=== PATIENT | female | born 1980 | race Caucasian/White ===

== ENCOUNTER 2025-04-20 11:03 | Observation (INO) | payer OTHER, SELFPAY ==
[2025-04-20] VITALS (10 sets, daily range): BP systolic 96–114; BP diastolic 61–78; PULSE 64–79; RESP 16–17; TEMP 36.5–36.7; O2SAT 99–100; BMI 21.7
--- NOTE | ~2025-04-20 | CT_ITS ---
History: Seizure-like activity with head and facial trauma PROCEDURE: CT cervical spine and facial bones without intravenous contrast. COMPARISON: None TECHNIQUE: Multiple contiguous axial images of the cervical spine and facial bones were performed without the ad ministration of intravenous contrast. DLP: 184 mGy-cm FINDINGS: Alignment is maintained. Degenerative disease is noted, primarily at the level of C5/C6 and C6/C7. No acute fractures are present within the cervical spine or the facial bones. Left apical scarring. The right apex is unremarkable. No soft tissue abnormality is appreciated. The airway is patent. Impression: Degenerative disease, without acute fracture of the cervical spine. No acute facial bone fracture is appreciated. Reviewed, dictated and finalized at location A. Impression: Degenerative disease, without acute fracture of the cervical spine. No acute facial bone fracture is appreciated.
--- NOTE | ~2025-04-20 | CT_ITS ---
History: Seizure-like activity, head trauma PROCEDURE: CT head without contrast. COMPARISON: None TECHNIQUE: Axial imaging of the head performed from the skull base to the vertex without IV contrast. Sagittal a nd coronal reformations obtained. DLP: 605 mGy-cm FINDINGS: The ventricles are normal in size, shape and position. There is no mass, mass effect or midline shift. There is no abnormal extra-axial fluid collection or intracranial hemorrhage. Visualized paranasal sinuses are clear. The mastoid air cells are well aerated. No acute displaced fractures within the overlying cranium. Impression: No acute intracranial hemorrhage or suspicious mass effect. Reviewed, dictated and finalized at location A. Impression: No acute intracranial hemorrhage or suspicious mass effect.
--- NOTE | ~2025-04-20 | XR_ITS ---
CHEST RADIOGRAPH, PA AND LATERAL CLINICAL HISTORY: seizure-like activity . COMPARISON: None available TECHNIQUE: PA and lateral views of the chest. FINDINGS The cardiomediastinal silhouette is unremarkable. The lungs are clear. IMPRESSION: No focal infiltrate or effusion. Reviewed, dictated and finalized at location A.
--- NOTE | 2025-04-20 11:27 | ECG_ITS ---
Test Date: 2025-04-20 12:05:09 Measurements Intervals [place] Rate: 64 P: 25 VA: 190 QRS: 30 QRSD: 96 T: 60 QT: 444 QTc: 459 Interpretive Statements SINUS RHYTHM No previous ECG available for comparison Electronically Signed On 04-20-2025 12:53:15 CDT by Enrique Clinton M.D.
--- OUTSIDE RECORDS SUMMARY | 2025-04-20 11:53 | XMS_ITS | Data Portability ---
Author Organization [facility] [place], VM_Sh[facility] ([facility]) Address [address] [place] [address] Care Team Providers Care Student Accounts Coordinator Name Role Phone PILAR ENRIQUEZ Primary Care Provider Assessment No assessment recorded. Plan of Treatment Reminders Order Date Submit Date Provider Last Modified By Organization Details Last Modified Time Details Appointments None recorded . Lab rapid strep group A, throat 2022 023 Jase Prather ([facility]), [address] , [place], [address], 3 19:25:01 rapid influenz a virus A + B and SARS CoV + SARS CoV 2 Ag panel, IA, upper respirat ory specimen 2022 023 Jase white [place] ([facility]), [address] , [place], [address], 3 19:25:14 vitamin B12 + folate, serum or blood 2022 023 chacha [facility], [address], [place], [address], 3 11:32:14 vitamin B12 + folate, serum or blood 2022 023 CHRISTINE [facility], [address], [place], [address], 3 10:16:20 Referral None recorded . Procedures None recorded . Surgeries None recorded . Imaging None recorded . Medication Orders Tamiflu 75 mg capsule 2022 023 [facility][id number], [address] , [place], [place], [id number], 3 19:32:27 Zithroma x Z-Demar 250 mg tablet 2022 023 [facility] #[id number], [address], [place], [place], [id number], 3 19:32:29 Bromfed DM 2 mg-30 mg-10 mg/5 mL oral syrup 2022 023 [facility] #67548, [address], [place], [place], [id number], 3 19:32:28 albutero l sulfate HFA 90 mcg/actu ation aerosol inhaler 2022 023 [facility] #07687, [address] [facility] [address], [place], [place], [id number], 3 19:32:27 Mounjaro 2.5 mg/0.5 mL subcutan eous pen injector 2022 023 [email or web address] [facility], [address] [place] [address], [address], 3 08:55:44 sertrali ne 100 mg tablet 2022 023 [facility], [address] [place] [address], [address], 3 08:37:27 ondanset moises 4 mg disinteg rating tablet 2022 023 [facility], [address] [place] [address], [address], 3 09:29:45 lisinopr il 10 mg tablet 2022 023 [facility], [address] [place] [address], [address], 3 09:18:44 Mounjaro 2.5 mg/0.5 mL subcutan eous pen injector 2022 023 [facility], [address] [place] [address], [address], 3 09:18:46 lisinopr il 10 mg tablet 2022 023 [facility], [address] [place] [address], [address], 3 17:10:42 Mounjaro 5 mg/0.5 mL subcutan eous pen injector 2022 023 [email or web address] [facility] [place] [facility], [address] [place] [address], [address], 3 08:32:05 sertrali ne 100 mg tablet 2022 023 [email or web address] [facility] [place] [facility], [address] [place] [address], [address], 3 17:02:45 Patient TargetsNo targets recorded. Patient Instructions Encounter Date Encounter Id Patient Instructions Last Modified By Organization Details Last Modified Time 06/18/2023 [id number] learning about healthy weight [email or web address] Not available 06/18/2023 17:06:43 learning about dietary guidelines Not available 06/18/2023 17:06:43 Learning About Being Physically Active [email or web address] Not available 06/18/2023 17:06:43 learning about obesity [email or web address] Not available 06/18/2023 17:06:43 Thank you for visiting our [facility] office today. It was my pleasure to meet and care of you. If you have any further needs or questions please reach out to me via your patient portal, or by calling our office at [phone]. If you have a question or non urgent need you are welcome to send me a text on my work cell [phone]. Pilar ANDERSON Hypertension: As part of helping get your blood pressure under control we need to work together. You need to take your BP at home with a cuff ( you can by on [employer]) 5-6 times a week I want you to write down the date and time of day with the results on a paper I would like you to text me those results at least every 2 weeks. Include your name in the first text. [phone] If they are not improving at all then text me ever week. By doing this I will have a better idea if the dose you currently taking for your BP is working or if we need to increase or change your medication. Watch your dietary salt intake. The goal is to get your BP ,<140 on the top and < 80 on the bottom number. [email or web address] Not available 06/18/2023 17:11:32 07/15/2023 [id number] Thank you for visiting our [facility] office today. It was my pleasure to meet and care of you. If you have any further needs or questions please reach out to me via your patient portal, or by calling our office at [phone]. If you have a question or non urgent need you are welcome to send me a text on my work cell [phone]. Pilar ANDERSON As we discussed stop the mounjaro until you are at least back up to 135. at that time if you feel you need to restart, will start at 2.5 mg [id number] days [email or web address] Not available 07/23/2023 06:27:52 07/23/2023 [id number] learning about healthy weight Not available 07/23/2023 09:23:38 learning about dietary guidelines [email or web address] Not available 07/23/2023 09:23:37 Learning About Being Physically Active Not available 07/23/2023 09:23:37 learning about obesity Not available 07/23/2023 09:23:38 Following the My[employer] Food Guide: Care Instructions Not available 07/23/2023 09:23:37 eating healthy foods: care instructions Not available 07/23/2023 09:23:38 Thank you for visiting our [facility] office today. It was my pleasure to meet and care of you. If you have any further needs or questions please reach out to me via your patient portal, or by calling our office at [phone]. If you have a question or non urgent need you are welcome to send me a text on my work cell [phone]. Pilar ANDERSON Continue to work on eating a more balanced diet and focus on protien. Wait to restart the mounjaro until you are back up to 138#'s then restart the 2.5 mg dosage, and do every 10-14 days max [email or web address] Not available 07/23/2023 09:40:09 08/25/2023 [id number] learning about healthy weight [email or web address] Not available 08/25/2023 08:57:57 learning about dietary guidelines [email or web address] Not available 08/25/2023 08:57:56 Learning About Being Physically Active [email or web address] Not available 08/25/2023 08:57:56 learning about obesity [email or web address] Not available 08/25/2023 08:57:57 Following the MyPlate Food Guide: Care Instructions [email or web address] Not available 08/25/2023 08:57:57 eating healthy foods: care instructions [email or web address] Not available 08/25/2023 08:57:57 Thank you for visiting our [facility] office today. It was my pleasure to meet and care of you. If you have any further needs or questions please reach out to me via your patient portal, or by calling our office at [phone]. If you have a question or non urgent need you are welcome to send me a text on my work cell [phone]. Pilar ANDERSON Weight loss instructions Mounjaro Thank you for visiting our [facility] office today. It was my pleasure to meet and care of you. If you have any further needs or questions, please reach out to me via your patient portal, or by calling our office at [phone]. If you have a question or non-urgent, need you are welcome to send me a text on my work cell [phone]. Pilar ANDERSON Congratulations On making the choice to change your life and become healthy!!! You will be meeting with me in the office monthly for at least the first 3 months. Please reach out to me if you have questions or concerns along the way. Please remember gaining weight happens over time and so does losing it. This journey is a marathon not a sprint. Your goal should be 1-2 pounds per week. This is a journey and lifestyle change. It is a medicine that will help you reach your goals, but you still must do your part. A healthy diet, exercise, and calorie deficit will be part of the plan. You will plateau along the way, that is normal physiological events. This medicine contains a GLP1 and GIP As we discussed in the office it has not been FDA approved for weight loss but is being fast tracked for approval. Knowing that information you have agreed that you want to proceed using Mounjaro for weight loss. It contains the GLP1 medication that is found in other weight loss medications plus an additional hormone GIP that helps your insulin be more sensitive when you eat. In trial these together have been shown to have weight loss upwards of 20+% of body weight. The medication is injected into subcutaneous fat weekly. Abdomen, upper thigh, or upper arm. I have sent the prescription for Mounjaro the Pharmacy. Please text me when you get your call from them, and the medication is approved@ [phone]. The prescription will be a box of 4 pens. You need to keep them refrigerated except for the one you are using. Each monthly box comes with 4 prefilled syringes. You use one weekly and put the remaining syringes in your refrigerator until you need them. I would like you to text me when you take your 4th injection to make sure we have the correct next dose ordered for you. Let me know if the current dose is still causing the same satiety as when you started or are noticing your appetite returning. This medicine will help decrease your appetite and cravings. It does that by having higher levels of the hormones that tell your brain you are full. It also slows down your stomach emptying, and the activity of your GI tract. This sometimes can cause the most common side effects of nausea constipation, and diarrhea. You have been given Zofran as needed for the nausea. For the constipation make sure you are staying hydrated, 100 ounces of water daily is ideal, and you can use things like fiber Gummies, Miralax and stool softener as needed. If those are note helping, please reach out to me for further instructions. If you have severe nausea, vomiting and or diarrhea for more than 24 hours, you need to contact me or the office. It is important that you can eat and drink. Download the [employer] jayant on your phone. You are going to use this to track what your daily intake of calories are. You should set it to a goal of 1600. It is still important that you eat a minimum of 1200 calories a day to prevent your body from going into starvation mode and slowing your metabolism. It also helps your body get rid of fat vs muscle. If you are not eating a healthy number of calories, it has been shown to shut down your overall metabolism and cause you to stop losing weight. It also increases your risk of gallstones and pancreatitis. You may notice if you have eaten more than your normal calorie amount then go back to the calorie deficit, it tends to restart your metabolism and the weight loss starts again. Purchase a scale that syncs to your smart phone. I recommend [employer] scale you can purchase it on [employer] or directly from the web site. Studies have shown people who weigh daily lose 6 pounds more in a year than those who don't weigh daily. [employer] Link: https://Business Capital/d/93n hwbH The cost is around $20, and you can track your journey. If you have a smart watch, fit bit, wear it daily to help track your steps and exercise. You can sync it to my fitness pal. When you are active, and earning more calories via exercise, remember to add those to your daily goal. Take your picture and do measurements. Along the way you will have plateau's and it is always encouraging to see how far you have come even if the scale has stalled. control should be used while taking these medications. You should be off the medicine for 3 months if you intend on conceiving. I will be meeting with you monthly for at least the first 3 months, so we can work together to make the best plan for your weight loss journey. If you need to change your appointment, please reach out to me, or pick the physical as the appointment type on the jayant or website so you get the correct 30-minute slot booked. Each of the first 3 appointments will be for 30 minutes. I look forward to helping you become a healthier version of the amazing person you already are. I encourage you to download the [employer] JAYANT to your smart phone or tablet. There are great resources for various types of activity for cardio, toning and weights. It also has recipes, tips on how to train, and a ton of workouts. The jayant is free or $25 a year for the PRO version. You can also screen share to your TV. Behavior modification, calorie deficit, proper nutrition, and physical activity are going to be the 4 pillars of your success and help you maintain your goal. Remember time+ hard work = Success Pilar ANDERSON [facility] (non-urgent text are welcome.) Office [phone] As we discussed please wait at least 4 weeks post op to restart the mounjaro. Your body needs the extra nutrition to heal. [email or web address] Not available 08/25/2023 09:01:45 09/14/2023 [id number] flu, active [email or web address] Not available 19:32:17 Thank you for visiting our [facility] office today. It was my pleasure to meet and care of you. If you have any further needs or questions please reach out to me via your patient portal, or by calling our office at [phone]. If you have a question or non urgent need you are welcome to send me a text on my work cell [phone]. Pilar ANDERSON You have been diagnosed with the flu. Please rest; you need to take 5 days of the Tamiflu before you are not at risk of exposing others. Stay hydrated, take Tylenol or Ibuprofen as needed for the fever/ body aches. You have also been given an antibiotic to help reduce the risk of you developing post flu bronchitis or pneumonia. (This does not prevent them but decreases the chance of you developing them.) [email or web address] Not available 09/14/2023 19:25:37 Reason for Referral None Reported. Results Created Date Observation Date Name Description Value Unit Range Abnormal Flag Note LastModifiedBy Organization Detail LastModifiedTime 05/19/20 23 05/20/2023 CBC WITH DIFFE RENTI AL/PL ATELE T WBC 7.9 x10e3 /uL 3.4-10 .8 Not Available [facility] ([facility]) [address], [place], [address], 05/20/2023 06:18:51 05/19/20 23 05/20/2023 CBC WITH DIFFE RENTI AL/PL ATELE T RBC 4.38 x10e6 /uL 3.77-5 .28 Not Available [facility] ([facility]) [address] [place], [address], 05/20/2023 06:18:51 05/19/2005/20/2023 CBC WITH DIFFE RENTI AL/PL ATELE T hemoglobin 14.1 g/dL 11.1-1 5.9 Not Available [facility] ([facility]) [address] [place], [address], 05/20/2023 06:18:51 05/19/2005/20/2023 CBC WITH DIFFE RENTI AL/PL ATELE T hematocrit 41.3 % 34.0-4 6.6 Not Available [facility] ([facility]) [address] [place], [address], 05/20/2023 06:18:51 05/19/2005/20/2023 CBC WITH DIFFE RENTI AL/PL ATELE T MCV 94 fL 79-97 Not Available [facility] ([facility]) [address] [place], [address], 05/20/2023 06:18:51 05/19/2005/20/2023 CBC WITH DIFFE RENTI AL/PL ATELE T MCH 32.2 pg 26.6-3 3.0 Not Available [facility] ([facility]) [address] [place], [address], 05/20/2023 06:18:51 05/19/2005/20/2023 CBC WITH DIFFE RENTI AL/PL ATELE T MCHC 34.1 g/dL 31.5-3 5.7 Not Available [facility] ([facility]) [address] [place], [address], 05/20/2023 06:18:51 05/19/20 23 05/20/2023 CBC WITH DIFFE RENTI AL/PL ATELE T RDW 11.9 % 11.7-1 5.4 Not Available [facility] ([facility]) [address] [facility], [place], [address], 05/20/2023 06:18:51 05/19/20 23 05/20/2023 CBC WITH DIFFE RENTI AL/PL ATELE T platelets 299 x10e3 /uL 150-45 0 Not Available [facility] ([facility]) [address] [facility], [place], [address], 05/20/2023 06:18:51 05/19/20 23 05/20/2023 CBC WITH DIFFE RENTI AL/PL ATELE T neutrophils 70 % not estab. Not Available [facility] ([facility]) [address] [facility], [place], [address], 05/20/2023 06:18:51 05/19/20 23 05/20/2023 CBC WITH DIFFE RENTI AL/PL ATELE T lymphs 23 % not estab. Not Available [facility] ([facility]) [address] [facility], [place], [address], 05/20/2023 06:18:51 05/19/20 23 05/20/2023 CBC WITH DIFFE RENTI AL/PL ATELE T monocytes 6 % not estab. Not Available [facility] ([facility]) [address] [facility], [place], [address], 05/20/2023 06:18:51 05/19/20 23 05/20/2023 CBC WITH DIFFE RENTI AL/PL ATELE T eos 0 % not estab. Not Available [facility] ([facility]) [address] [facility], [place], [address], 05/20/2023 06:18:51 05/19/20 23 05/20/2023 CBC WITH DIFFE RENTI AL/PL ATELE T basos 1 % not estab. Not Available [facility] ([facility]) [address] [place], [address], 05/20/2023 06:18:51 05/19/20 23 05/20/2023 CBC WITH DIFFE RENTI AL/PL ATELE T neutrophils (absolute) 5.5 x10e3 /uL 1.4-7. 0 Not Available [facility] ([facility]) [address] [place], [address], 05/20/2023 06:18:51 05/19/2005/20/2023 CBC WITH DIFFE RENTI AL/PL ATELE T lymphs (absolute) 1.8 x10e3 /uL 0.7-3. 1 Not Available [facility] ([facility]) [address] [place], [address], 05/20/2023 06:18:51 05/19/20 23 05/20/2023 CBC WITH DIFFE RENTI AL/PL ATELE T monocytes(ab solute) 0.5 x10e3 /uL 0.1-0. 9 Not Available [facility] ([facility]) [address] [place], [address], 05/20/2023 06:18:51 05/19/2005/20/2023 CBC WITH DIFFE RENTI AL/PL ATELE T eos (absolute) 0.0 x10e3 /uL 0.0-0. 4 Not Available [facility] ([facility]) [address] [place], [address], 05/20/2023 06:18:51 05/19/2005/20/2023 CBC WITH DIFFE RENTI AL/PL ATELE T baso (absolute) 0.1 x10e3 /uL 0.0-0. 2 Not Available [facility] ([facility]) [address] [place], [address], 05/20/2023 06:18:51 05/19/20 23 05/20/2023 CBC WITH DIFFE RENTI AL/PL ATELE T immature granulocytes 0 % not estab. Not Available [facility] ([facility]) [address] [facility], [place], [address], 05/20/2023 06:18:51 05/19/20 23 05/20/2023 CBC WITH DIFFE RENTI AL/PL ATELE T immature grans (abs) 0.0 x10e3 /uL 0.0-0. 1 Not Available [facility] ([facility]) [address] [place], [address], 05/20/2023 06:18:51 08/25/20 23 08/26/2023 VITAM IN B12+F OLATE vitamin B12 210 pg/mL 232-12 45 below low normal Not Available [facility] ([facility]) [address] [facility], [place], [address], 09/03/2023 10:16:20 08/25/20 23 08/26/2023 VITAM IN B12+F OLATE folate (folic acid), serum 8.7 NG/mL >3.0 A serum folat e eboni ntrat ion of less than 3.1 ng/mL is consi dered to repre sent clini karlos defic iency . Not Available [facility] ([facility]) [address] [facility], [place], [address], 09/03/2023 10:16:20 08/25/20 23 08/27/2023 VITAM IN B12+F OLATE homocyst(E)i ne 12.5 umol/ L 0.0-14 .5 Not Available [facility] ([facility]) [address] [facility], [place], [address], 09/03/2023 10:16:20 08/25/20 23 09/03/2023 VITAM IN B12+F OLATE methylmaloni c acid, serum COMMEN T nmol/ L Quant ity was not suffi cient for rajinder sis. Not Available [facility] ([facility]) [address] [facility], [place], [address], 09/03/2023 10:16:20 08/25/20 23 09/03/[address] PROBL EM request problem COMMEN T Quant ity was not suffi cient for rajinder sis. TEST: 17402 7 Methy lmalo tracey Acid, Serum Panel : 42160 3 Not Available [facility] ([facility]) [address] [facility], [place], [address], 09/03/2023 10:16:22 09/14/20 23 09/14/2023 rapid influ allyson virus A + B and SARS CoV + SARS CoV 2 Ag panel , IA, upper respi rator y speci men Influenza A Presum ptive Negati ve Not Available [facility]) [address], [place], [address], 09/14/2023 19:22:10 09/14/20 23 09/14/2023 rapid influ allyson virus A + B and SARS CoV + SARS CoV 2 Ag panel , IA, upper respi rator y speci men Influenza B Presum ptive Negati ve Not Available [facility] ([facility]) [address] [place], [address], 09/14/2023 19:22:10 09/14/20 23 09/14/2023 rapid influ allyson virus A + B and SARS CoV + SARS CoV 2 Ag panel , IA, upper respi rator y speci men SARS-CoV-2 Antigen Presum ptive Negati ve Not Available [facility] ([facility]) [address] [place], [address], 09/14/2023 19:22:10 09/14/20 23 09/14/2023 rapid strep group A, throa t Strep negati ve Not Available [facility] ([facility]) [address], [place], [address], 09/14/2023 19:22:09 08/23/20 23 08/19/2023 MAMMO adrián, digit al, bilat eral No observ ation record ed. [email or web address] [facility] [address], [place], [address], 08/25/2023 08:49:37 08/25/20 24 08/24/2024 MAMMO adrián, digit al, bilat eral No observ ation record ed. [email or web address] [facility] [address], [place], [address], 09/07/2024 12:41:42 09/19/20 24 09/19/2024 imagi ng/di agnos tic resul t No observ ation record ed. [facility] [address], [place], [address], 09/27/2024 18:16:24 09/19/20 24 09/19/2024 imagi ng/di agnos tic resul t No observ ation record ed. [facility] [address], [place], [address], 09/27/2024 18:16:25 Result Notes None recorded. Problems Name Problem SNOMED Code Status Onset Date Resolution Date Notes Provider Name and Address Organization Details Recorded Time COVID-19 810065489 Active [address], [place], [address], [facility] [place] 3 12:20:11 Blade 644633359 Active [address], [place], [address], [facility] 3 12:51:37 Family history of malignant neoplasm of breast in first degree relative 644572588 Active 2022 ED Kam [address], [place], [address], [facility] 3 12:20:20 History of sleeve gastrecto my 466523562503 107 Active 2010 ED Kam [address] [facility] [address], [place], [address], [facility] 3 12:19:55 Weight loss 65885000 Active 2022 sleeve in 2010, glp1 in 2021 ED Kam [address] [facility] [address], [place], [address], [facility] 3 12:20:54 Hyperchol esterolem ia 58817570 Active 2022 by history , non medicated ED Kam [address] [facility] [address], [place], [address], [facility] 3 12:21:22 Finding of body mass index 988235434 Active 2022 ED Kam [address] [facility] [address], [place], [address], [facility] 3 12:27:55 Screening for malignant neoplasm of cervix Active 2022 ED Kam [address] [facility] [address], [place], [address], [facility] 3 12:27:56 Pre-surge ry evaluatio n Active 2022 ED Kam [address] [facility] [address], [place], [address], [facility] 3 12:28:00 Administr ation of influenza vaccine Active 2022 ED Kam [address] [facility] [address], [place], [address], [facility] 3 12:28:03 Serum vitamin B12 borderlin e low 127302742 Active 2022 ED Kam [address] [facility] [address], [place], [address], [facility] 3 12:51:02 Serum folate below reference range 813061881 Active 2022 ED Kam [address] [facility] [address], [place], [place], [address], [facility] 3 12:51:03 Macrocyto sis - no anemia 087315770 Active 2022 ED Kam [address] [facility] [address], [place], [place], [address] [place] [address] 7, [facility] 3 16:02:32 Acute depressio n 132008483 Active 2022 ED Kam [address] [facility] [address], [place], [place], [address] [place] [address] 7, [facility] 3 07:13:34 Anxiety 31077421 Active 2022 ED Kam [address] [facility] [address], [place], [place], [address] [place] [address] 7, [facility] 3 07:13:41 Hypertens nathen disorder 79631739 Active 2022 DE Kam [address] [facility] [address], [place], [place], [address] [place] [address] 7, [facility] 3 07:14:04 Nausea 590915797 Active 2022 ED Kam [address], [place], [address], [facility] 3 06:27:52 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 Procedures Surgical History Date Name Laterality Status Provider Name and Address Organization Details Recorded Time 12/19/19 Lab / Venipuncture completed Christy Weeks [facility] 12/21/2022 15:07:59 Tubal Ligation completed Ela [facility] 04/16/2022 17:33:01 Gastric bypass for obesity completed [facility] 04/16/2022 17:33:22 Hysterectomy (Partial) completed [facility] 04/16/2022 17:33:35 Imaging Results None recorded. Procedure Notes None recorded. Medical Equipment None Reported. Allergies Allergen ID Allergen Name Allergen Category Reaction Reaction Severity Criticality Documentation Date Start Date Code Code System Note Provider Name and Address Organization Details Recorded Time [id number] Substance with sulfonami de structure and antibacte rial mechanism of action (substanc e) medicatio n rash mild low 04/16/2022 [id number] SNOMED Ela [facility] 17:28:50 Medications Name Sig Start Date Stop Date Status Note LastModified by Organization Details LastModified Time salicylic acid 80%/fluorou racil 5% wart paste APPLY THIN LAYER TO THICKER WARTS EVERY NIGHT AT BEDTIME AND COVER WITH DUCT TAPE, WASH off IN THE MORNING 12/02 completed Not Available Not Available Not Available buspirone 5 mg tablet 12/02 completed Not Available Not Available Not Available Bromfed DM 2 mg-30 mg-10 mg/5 mL oral syrup Take 10 mL every 4-6 hours by oral route as needed. 2022 active Not Available Not Available Not Avai lable prednisone 10 mg tablet TAKE FOUR (4) TABLETS BY MOUTH IN THE MORNING WITH FOOD FOR 2 WEEKS, THEN 2 TABLETS IN THE MORNING WITH FOOD FOR 2 WEEKS, THEN 1 TABLET IN 06/18 completed Not Available Not Available Not Available doxycycline hyclate 100 mg capsule TAKE 1 CAPSULE BY MOUTH TWICE DAILY WITH FOOD AND WATER 12/02 completed Not Available Not Available Not Available clindamycin HCl 300 mg capsule TAKE ONE (1) CAPSULE(S ) BY MOUTH FOUR TIMES A DAY. 02/07 completed Not Available Not Available Not Available atorvastati n 10 mg tablet TAKE ONE (1) TABLET(S) BY MOUTH ONCE A DAY AT BEDTIME. 07/15 completed Not Available Not Available Not Available azithromyci n 250 mg tablet TAKE 2 TABLETS BY MOUTH ON DAY 1, THEN TAKE 1 TABLET BY MOUTH DAILY FOR 4 DAYS active Not Available Not Available No t Available benzonatate 200 mg capsule TAKE 1 CAPSULE BY MOUTH THREE TIMES DAILY FOR 10 DAYS NEEDED 12/02 completed Not Available Not Available Not Available naltrexone 50 mg tablet TAKE 1 TABLET BY MOUTH DAILY 12/02 completed Not Available Not Available Not Available ondansetron HCl 4 mg tablet TAKE ONE (1) TABLET(S) BY MOUTH EVERY FOUR TO SIX HOURS NEEDED FOR NAUSEA. 02/07 completed Not Available Not Available Not Available prednisone 20 mg tablet 12/02 completed Not Available Not Available Not Available sertraline 100 mg tablet TAKE ONE (1) TABLET(S) BY MOUTH ONCE A DAY. 2022 active Not Available Not Available Not Avai lable prednisone 5 mg tablet TAKE ONE (1) TABLET(S) BY MOUTH ONCE A DAY FOR 14 DAYS, AND THEN TAKE ONE-HALF (1/2) TABLET BY MOUTH ONCE A DAY FOR 14 DAYS. TAKE WITH FOOD 06/18 completed Not Available Not Available Not Available phentermine 37.5 mg tablet TAKE 1 TABLET BY MOUTH EVERY DAY IN THE MORNING 12/02 completed Not Available Not Available Not Available Tamiflu 75 mg capsule Take 1 capsule twice a day by oral route for 5 days. 2022 active Not Available Not Available Not Avai lable alprazolam 0.5 mg tablet TAKE ONE (1) TABLET(S) BY MOUTH TWICE A DAY NEEDED. active Not Available Not Available No t Available triamcinolo ne acetonide 0.025 % topical cream APPLY 1 TO 2 TIMES DAILY PREFERABL Y SOON AFTER BATHING 12/02 completed Not Available Not Available Not Available hydrocodone 7.5 mg-acetamin ophen 325 mg tablet TAKE ONE (1) TABLET(S) BY MOUTH EVERY FOUR TO SIX HOURS NEEDED FOR PAIN. 02/07 completed Not Available Not Available Not Available cyanocobala min (vit B-12) 1,000 mcg/mL injection solution Inject 1000 microgram s by subcutane ous route as directed. 2023 active Not Available Not Available Not Avai lable lisinopril 10 mg tablet TAKE ONE (1) TABLET(S) BY MOUTH ONCE A DAY. active Not Available Not Available No t Available docusate sodium 100 mg capsule TAKE ONE (1) CAPSULE(S ) BY MOUTH TWICE A DAY. 02/07 completed Not Available Not Available Not Available gabapentin 300 mg capsule TAKE ONE (1) CAPSULE(S ) BY MOUTH TWICE A DAY. 02/07 completed Not Available Not Available Not Available omeprazole 20 mg capsule,del ayed release TAKE ONE (1) TABLET(S) BY MOUTH ONCE A DAY. 06/18 completed Not Available Not Available Not Available folic acid 1 mg tablet TAKE ONE (1) TABLET(S) BY MOUTH ONCE A DAY WITH MEALS. active Not Available Not Available No t Available hydrocortis one 2.5 % topical cream APPLY TOPICALLY TO THE AFFECTED AREA TWICE DAILY. MAX 2 WEEKS PER MONTH. MIX WITH KETOCONAZ OLE CREAM 12/02 completed Not Available Not Available Not Available hydroxyzine HCl 25 mg tablet TAKE 1 TABLET BY MOUTH 1 TO 4 TIMES A DAY TOLERATED . MAY CAUSE EXCESSIVE DROWSINES S 12/02 completed Not Available Not Available Not Available codeine 10 mg-guaifene sin 100 mg/5 mL oral liquid TAKE 10 ML BY MOUTH EVERY NIGHT AT BEDTIME FOR 10 DAYS 12/02 completed Not Available Not Available Not Available ergocalcife rol (vitamin D2) 1,250 mcg (50,000 unit) capsule TAKE ONE (1) CAPSULE(S ) BY MOUTH EVERY WEEK. 06/18 completed Not Available Not Available Not Available albuterol sulfate HFA 90 mcg/actuati on aerosol inhaler Inhale 2 puffs every 4 hours by inhalatio n route as needed for 10 days. 2022 active Not Available Not Available Not Avai lable ketoconazol e 2 % topical cream APPLY TO RASH ON THE AXILLA TWICE DAILY FOR 1 WEEK 12/02 completed Not Available Not Available Not Available ondansetron 4 mg disintegrat ing tablet TAKE ONE (1) TABLET(S) BY MOUTH THREE TIMES A DAY FOR SEVEN DAYS. active Not Available Not Available No t Available sertraline 50 mg tablet TAKE 1/2 TAB DAILY FOR FIRST 7 DAYS THEN ONE (1) TABLET(S) BY MOUTH ONCE A DAY FOR 90 DAYS. 07/23 completed Not Available Not Available Not Available diazepam 5 mg tablet TAKE ONE (1) TABLET(S) BY MOUTH THREE TIMES A DAY NEEDED. 02/07 completed Not Available Not Available Not Available amoxicillin 875 mg-karlaava cole clavulanate 125 mg tablet TAKE 1 TABLET BY MOUTH EVERY 12 HOURS WITH MEALS FOR 7 DAYS 12/02 completed Not Available Not Available Not Available enoxaparin 40 mg/0.4 mL subcutaneou s syringe STARTING 24 HOURS AFTER OPERATION , INJECT ONE (1) SYRINGE SUBCUTANE OUSLY ONCE A DAY FOR 8 DAYS. 02/07 completed Not Available Not Available Not Available clobetasol 0.05 % shampoo APPLY A THIN LAYER BY TOPICAL ROUTE ONCE DAILY TO DRY SCALP LEAVE IN PLACE 15 MIN. THEN LATHER AND RINSE DO TWICE WEEKLY. active Not Available Not Available No t Available aprepitant 40 mg capsule TAKE ONE (1) CAPSULE(S ) BY MOUTH DIRECTED 3 HOURS PRIOR TO SURGERY. 02/07 completed Not Available Not Available Not Available ivermectin 1 % topical cream APPLY TO entire FACE NIGHTLY 12/02 completed Not Available Not Available Not Available Rhofade 1 % topical cream apply TO face ONCE A DAY IN THE MORNING 12/02 completed Not Available Not Available Not Available Mounjaro 7.5 mg/0.5 mL subcutaneou s pen injector INJECT 7.5 MG SUBCUTANE OUSLY EVERY WEEK FOR 28 DAYS. 02/07 completed Not Available Not Available Not Available Mounjaro 5 mg/0.5 mL subcutaneou s pen injector INJECT FIVE (5) MG BY SUBCUTANE OUS ROUTE ONCE WEEKLY. 08/25 completed Not Available Not Available Not Available Mounjaro 10 mg/0.5 mL subcutaneou s pen injector active Not Available Not Available Not Available Mounjaro 2.5 mg/0.5 mL subcutaneou s pen injector active Not Available Not Available Not Available Vitals Date Recorded Body height Body mass index (BMI) Body weight Heart rate Oxygen saturation Oxygen saturation in Arterial blood by Pulse oximetry Respiratory rate Body temperature Systolic And Diastolic Provider Name and Address Organization Details Last Updated DateTime 3 167.64 cm 22.3 kg/m2 15745.1 8 g 73 /min 96 % 96 % 17 /min 97.9 [degF] 137/86 mm[Hg] Renu Hardin [facility] 3 16:52:20 Date Recorded Body height Body mass index (BMI) Body weight Respiratory rate Oxygen saturation Oxygen saturation in Arterial blood by Pulse oximetry Pain severity - 0-10 verbal numeric rating [Score] - Reported Body temperature Heart rate Systolic And Diastolic Provider Name and Address Organization Details Last Updated DateTime 3 167.64 cm 21.1 kg/m2 70368.6 g 18 /min 97 % 97 % 0 97.2 [degF] 78 /min 126/87 mm[Hg] Chrystal Vernell [facility] 3 09:03:09 Date Recorded Body height Body mass index (BMI) Body weight Heart rate Systolic And Diastolic Provider Name and Address Organization Details Last Updated DateTime 07/23/2023 167.64 cm 21.5 kg/m2 11690.79 g 66 /min 121/79 mm[Hg] Renu Hardin [facility] 07/23/2023 09:00:26 Date Recorded Body height Body mass index (BMI) Body weight Body temperature Respiratory rate Heart rate Oxygen saturation Oxygen saturation in Arterial blood by Pulse oximetry Systolic And Diastolic Provider Name and Address Organization Details Last Updated DateTime 3 167.64 cm 22.7 kg/m2 74867.0 9 g 97.4 [degF] 16 /min 86 /min 94 % 94 % 113/77 mm[Hg] Bernarda Hoffmann [facility] 3 08:25:11 Date Recorded Body height Body mass index (BMI) Body weight Heart rate Respiratory rate Body temperature Oxygen saturation Oxygen saturation in Arterial blood by Pulse oximetry Systolic And Diastolic Provider Name and Address Organization Details Last Updated DateTime 3 167.64 cm 22.9 kg/m2 07717.1 2 g 83 /min 16 /min 97.6 [degF] 98 % 98 % 113/85 mm[Hg] Bernarda Hoffmann [facility] 3 18:50:42 Social History Question Answer Notes LastModified by Organizat ion Details LastModified Time Tobacco Smoking Status Never Smoker [facility] 04/16/2022 17:31:35 Do You Have An Advance Directive? No [email or web address] Information not available 08/25/2023 What Type Of Diet Are You Following? REGULAR [email or web address] Information not available 04/16/2022 What Is The Highest Grade Or Level Of School You Have Completed Or The Highest Degree You Have Received? [id number] [email or web address] Information not available 04/16/2022 How Many Days Of Moderate To Strenuous Exercise, Like A Brisk Walk, Did You Do In The Last 7 Days? 2 [email or web address] Information not available 04/16/2022 Do You Have Any Barriers To Taking Your Medications As Prescribed? No Barriers. I Am Able To Take As Prescribed. Information not available 12/02/2022 Have You Had An Unplanned Hospital Admission In The Last Year? No Information not available 12/02/2022 Have You Had An Unplanned Hospital Admission In The Last 30 Days? No Information not available 12/02/2022 Have You Had An ER Visit Since You Were Last Seen? No Information not available 12/02/2022 Do You Have A Medical Power Of Synthetic Staple Extruder? No [email or web address] Information not available 08/25/2023 What Was The Date Of Your Most Recent Tobacco Screening? 08/25/2023 [email or web address] Information not available 08/25/2023 How Many Children Do You Have? 3 Information not available 04/16/2022 Do You Use Protection During Sex? Usually Information not available 04/16/2022 What Is Your Relationship Status? [email or web address] Information not available 04/16/2022 Do You Use Your Seat Belt Or Car Seat Routinely? Yes [email or web address] Information not available 04/16/2022 Are You Sexually Active? Yes [email or web address] Information not available 04/16/2022 Are There Any Smokers In Your House? No Information not available 04/16/2022 Do You Use Sunscreen Routinely? Yes [email or web address] Information not available 04/16/2022 Has Tobacco Cessation Counseling Been Provided? No Information not available 12/02/2022 Sex: Unknown Functional Status Question Answer Note LastModified by Organizat ion Details LastModified Time Do you use any illicit or recreational drugs? No [email or web address] Information not available 04/16/2022 Do you or have you ever used any other forms of tobacco or nicotine? No Information not available 12/02/2022 What is your level of alcohol consumption? Moderate [email or web address] Information not available 04/16/2022 Are you currently employed? Yes [email or web address] Information not available 04/16/2022 Mental Status Question Answer Note LastModified by Organizat ion Details LastModified Time Do you feel stressed (tense, restless, nervous, or anxious, or unable to sleep at night)? [id number] Information not available 04/16/2022 Do you have difficulty concentrating, remembering or making decisions? No [email or web address] Information no t available 04/16/2022 Family History Relationship Description Onset Age of this Age Resolved Age Notes LastModified by Organization Details LastModified Time Father No current problems or disability Not available 04/16 17:30:42 Mother No current problems or disability [email or web address] Not available 04/16 17:30:42 Medical History Condition Response Other N Muscle, Joint, or Bone Problems N Colon Disease/Disorder N Vision or Eye Problems N Autoimmune Disorders N Elevated Cholesterol/Triglycerides N Ear or Hearing Problems N Peripheral Vascular Disease (PVD) N Osteopenia/Osteoporosis N Substance Abuse N GERD/Reflux N Hepatitis N Thyroid Disease/Disorder N Stroke (CVA) N 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 Y Menses Monthly N STIs/STDs N HPV Vaccine N Current Control Method Hysterectom y Obstetrics History GPAL:G 3 P 3 0 0 0 Type Value Full Term 3 Total 3 Immunizations Vaccine Type Date Status Note Provider Nam e and Address Organization Details Recorded Time COVID-19, mRNA, LNP-S, PF, 30 mcg/0.3 mL dose 11/02/2020 completed Ela mcclellan, [place] - [facility] [place] 04/16/2022 17:29:57 COVID-19, mRNA, LNP-S, PF, 30 mcg/0.3 mL dose 11/23/2020 completed Ela Hilliard null, [facility] [place] 04/16/2022 17:30:08 COVID-19, mRNA, LNP-S, PF, 30 mcg/0.3 mL dose 07/13/2021 completed Ela Hilliard null, [facility] 04/16/2022 17:30:17 COVID-19, mRNA, LNP-S, PF, 30 mcg/0.3 mL dose 04/01/2022 completed Ela Hilliard null, [facility] 04/16/2022 17:30:29 Influenza, split virus, quadrivalent, PF 12/16/2022 completed ED Kam [address] [facility] [address], [place], [address], [facility] 2022 13:36:16 Influenza, split virus, quadrivalent, PF 08/25/2023 completed Karina Raymundo null, [facility] 08/25/2023 09:50:22 Past Encounters Encounter ID Performer Location Encounter Start Date Encounter Closed Date Diagnosis/Indication Diagnosis SNOMED-CT Code Diagnosis ICD10 Code Diagnosis Note [id number] Mayra Cardenas NP [facility] ([facility]) [address] [place] [address] 04/16/2022 17:11:24 04/16/2022 17:54:42 Acute frontal sinusitis 81322118 J01.10 Patients symptoms most consistent with sinusitis Advised patient to take antibiotic in its entirety even if symptoms improveAls o advised patient to continue daily antihistam ine and flonase Patient can take dayquil to help with symptom management The patient will follow up if symptoms do not improve Cough 77110332 R05.1 Will send patient medication to help with cough [id number] ED Kam [facility] ([facility]) [address] [place] [address] 12/02/2022 09:46:54 12/02/2022 12:12:08 Sore throat 390999523 J02.9 Respirator y tract congestion and cough 377879679 R05.9 COVID-19 404466985 U07.1 [id number] ED Kam [facility] ([facility]) [address] [place] [address] 12/16/2022 11:32:54 01/25/2023 08:41:07 Seen in primary care establishment 014061596 Z76.89 Hyperlipid emia screening 260103389 Z13.220 Endocrine/ metabolic screening 810564779 Z13.228 Hematology screening test 081965060 Z13.0 Finding of body mass index 656565214 Z68.23 Screening for malignant neoplasm of cervix 058360124 Z12.4 Gynecologi c examination 07335784 Z01.419 Pre-surger y evaluation 765507189 Z01.818 the patient is scheduled for an abdominopl asty with [facility] plastic surgery with Dr Almazan Administra timonisha of influenza vaccine 95561383 Z23 Family his tory of malignant neoplasm of breast in first degree relative 630656500 Z80.3 Mom, MAunt, and Mcousins all before age 45 Rosacea 255850089 L71.9 Stable sees dermatolog y History of sleeve gastrectomy 5659958381 23778 Z90.3 2011 Weight loss 89424805 R63 .4 history of gastric sleeve in 2010 and GLP-1 's from May until now Monjuaro with an additional 50 pound weight loss [id number] ED Kam [facility] ebonymon[facility]il[facility] ([facility]) [address] [place] [address] 2022 17:21:46 2022 17:26:37 [id number] Sushant Cedeño MD [facility] ([facility]) [address] [place] [address] 02/07/2023 16:06:19 02/21/2023 07:35:06 Patient advised about weight management 244503076 Z71.3 pt is here for wt maintenanc e after taking GLP1 for additional weight loss after her sleeve surgery. She is recently post op 5 weeks she is going to restart her Mounjaro next week and then we will work on a maintenanc e dose when she reached her goal Weight loss 49821158 R63 .4 history of gastric sleeve in 2010 and GLP-1 's from May until now mounjaro with an additional 50 pound weight loss History of sleeve gastrectomy 5747453535 44071 Z90.3 2010 Serum lexx te below reference range 684546343 R79.89 advised to take MVT with folate 1 mg daily Serum kenn min B12 below reference range 557390392 R79.89 has the rx and syringes will start her daughter can give them to hershe is going to start those this week we discussed doing them weekly for 4 weeks every other week for 4 times and then once a month for time will recheck in 3 months Macrocytos is - no anemia 395938617 D75.89 stable Counseling 017558447 Z71 .9 Body mass index 25-29 - overweight 020213426 E66.3 over weight with htn and hyper lipidshas been on mounjaro, stopped because of surgerywan ts to restart for maintenanc e purposeshi story of obesity with gastric sleeve Hypercholesterolemia 136 85858 E78.00 we discussed her lab values and the fact that she has lost a significan t amount of weight and has been on Mounjaro. advised taking a statin would be beneficial and protection of cardiovasc ular disease patient is agreeable [id number] Sushant Cedeño MD [facility] ([facility]) [address] [place] [address] 05/19/2023 15:47:43 05/19/2023 17:06:32 Macrocytosis - no anemia 119680257 D75.89 stable Vitamin D deficiency 347 39492 E55.9 just had repeated 10 days ago at derm it was normal will get the results to me Lichen planus 5666212 L4 3.9 Body mass index 20-24 - normal 537861980 Z68.22 Anxiety 69341541 F41.9 discussed to be used as needed, I only prescribe a very small amount if needing more will need referral rot psych Mixed anxi ety and depressive disorder 022306792 F41.8 would like to start SSRI, Patient ad vised about weight management 434163120 Z71.3 pt is here for wt maintenanc e after taking GLP1 for additional weight loss after her sleeve surgery. She is recently post op 5 weeks she is going to restart her Mounjaro next week and then we will work on a maintenanc e dose when she reached her goal Counseling 363988675 Z71 .9 [id number] MD CATALINA Noguera[facility] ([facility]) [address] [place] [address] 06/18/2023 16:46:20 06/22/2023 05:11:34 Mixed anxiety and depressive disorder 183689336 F41.[address] Toussaint's office History of sleeve gastrectomy 4955980241 11746 Z90.3 2010 Body mass index 20-24 - normal 847874503 Z68.22 Patient ad vised about weight management 149226082 Z71.3 pt is here for wt maintenanc e after taking GLP1 for additional weight loss after her sleeve surgery. She is recently post op 5 weeks she is going to restart her Mounjaro next week and then we will work on a maintenanc e dose when she reached her goal Counseling 768265503 Z71 .9 Hypertensive disorder 38 073838 I10 [id number] MD CATALINA Noguera[facility] ([facility]) [address] [place] [address] 07/15/2023 08:57:35 07/15/2023 09:37:00 Anxiety 77887107 F41.9 discussed to be used as needed, I only prescribe a very small amount if needing more will need referral rot psych Acute depression 3662307 08 F32.A on sertraline , going to start therapy soon Weight loss 54612897 R63 .4 history of gastric sleeve in 2010 and GLP-1 's from May until now mounjaro with an additional 50 pound weight loss advised to not take anymore mounjaro until wt back up to at least 135. Hypertensive disorder 38 548912 I10 stable continue lisinopril Mixed anxi ety and depressive disorder 495971928 F41.8 stable continue sertraline Nausea 477583253 R11.0 [id number] MD CATALINA Noguera[facility] ([facility]) [address] [place] [address] 07/23/2023 08:51:25 07/23/2023 09:41:34 Folic acid deficiency 394626957 E53.8 was taking medication in the past will re check next visit Patient ad vised about weight management 430394458 Z71.3 pt is here for wt maintenanc e after taking GLP1 for additional weight loss after her sleeve surgery. She is recently post op 5 weeks she is going to restart her Mounjaro next week and then we will work on a maintenanc e dose when she reached her goal Counseling 675159540 Z71 .9 Acute depression 3080921 08 F32.A on sertraline , going to start therapy soon Anxiety 03110096 F41.9 discussed to be used as needed, I only prescribe a very small amount if needing more will need referral rot psych Weight loss 64703338 R63 .4 history of gastric sleeve in 2010 and GLP-1 's from May until now mounjaro with an additional 50 pound weight loss advised to not take anymore mounjaro until wt back up to at least 135-138. then to restart on the 2.5 mg doseage [id number] ED Kam [facility] [address] [place] [address] 08/25/2023 08:13:07 08/25/2023 09:02:12 Folic acid deficiency 005609276 E53.8 was taking medication in the past will re check next visit Acute depression 3682143 08 F32.A on sertraline , started therapy with Dr Toussaint. Mixed anxi ety and depressive disorder 315951829 F41.8 stable continue sertraline Weight loss 88412439 R63 .4 history of gastric sleeve in 2010 and GLP-1 's from May until now mounjaro with an additional 50 pound weight loss advised to not take anymore mounjaro until wt back up to at least 135-138. then to restart on the 2.5 mg dose Active or passive immunization 012986346 Z23 Patient ad vised about weight management 878092789 Z71.3 pt is here for wt maintenanc e after taking GLP1 for additional weight loss after her sleeve surgery. She is recently post op 5 weeks she is going to restart her Mounjaro next week and then we will work on a maintenanc e dose when she reached her goal Counseling [id number] Z71 .9 Educated a bout weight management [id number] Z71.3 [id number] Sushant Cedeño MD [id number] tobi Prather ([facility]) [address] [place] [address] 09/14/2023 18:44:53 09/14/2023 19:37:05 Respiratory tract congestion and cough [id number] R05.9 Sore throat [id number] J0 2.9 Influenza [id number] J11.1 discussed symptoms and the inaccuracy of the flu test Health Concerns Section Related Observation LastModified by Organization Detai ls LastModified Time None Recorded Concern Status LastModified by Organization Details LastModified Time None Recorded Advance Directives Directive N: Payers Insurance Date Sequence Insurance Name Policy Number Policy Florez Covered Member ID Florez Member ID Guarantor Name 06/18/2023 1 [facility] [id number] Serina Lundberg [id number] Serina Lundberg 11/23/2023 1 [employer] (POS II) [id number] Brooks Toño [id number] Serina Lundberg Notes Date Note Type Note Provider Name and Address Organization Details Recorded Time 3 text/html 06/18/23 Weight Management : Mounjaropt is on maintenance no issues with maintenanceDiscussed the sertraline, hasn't noticed a difference, going to increase the dose, to 100,has had 2 panic attacks, used the ativan oncedenies any thoughts of harming herself or othersHeard from Dr Toussaint's office is playing phone taggoing to email me her labs , they were reviewed see scanned in results Also discussed her elevated BP, has been running 140's/90's has been on amlodipine in the past and caused decreased sex drive. willing to try lisinopril+ FHx of htn, denies CP H/A or visual changesbut she can tell when it is elevated at home How do you feel on the Mounjaro? good taking 5 mg once a week, wt is steadyNausea? deniedBowel Habits: noneConstipation? deniedtreatment ? deniedSatiety ? goodMeals per day? 2Snacking? yes Dose 5 mg weeklyGoing to send to [email or web address] My fitness pal calories ? doing high protien, eats to full her body, eats clean Did you get a scale that syncs to your phone? yes Any specific factors impeding your wt loss ? denied Are you incorporating any specific diet plan with the medication other than calorie restriction? high protien Do you currently have an activity plan? 2 times a weekHow many days per week?Total minutes per day:Cardio days ? 100%weights days?Discussed the importance of fpc activity for maintenance of weight loss. Discussed importance of weight lifting for toning. I encouraged the patient to download the Total Immersion JAYANT to your smart phone or tablet. There are great resources for various types of activity for cardio, toning and weights. It also has recipes, tips on how to train, and a ton of workouts. The jayant is free or $25 a year for the PRO version. You can also screen share to your TV. Hydration: We discussed Mounjaro again how it is not approved for wt loss, only type 2 DM, but it is being fast tracked for FDA approval for wt loss.Advancing the dosage to: Any history of pancreatitis? deniedAny history of gallstones? deniedDo you or anyone in your family have any history of thyroid cancer? Specifically medullary thyroid cancer? deniedDo you or anyone in your family have a history of Multiple endocrine neoplasia syndrome type 2?denied High Wt: 183 got to 135 on mounjaroSW: 185 Date:mayW: 138.4BMI Starting : 28.97BMI Current: 22.3GW: first 135GW: basting puller 135Waist umbilical circumference : Past attempts for wt loss:Mounjaro sleeveall diets Co- Morbid conditions: Htn and chol when startedPast attempts for wt loss: Today's visit included 15 minutes worth of Counseling. This included behavioral, nutritional, and physical activity modification. 05/19/23Weight Management : Thom Benson diagnosed with LPPhas lost a ton of hairthinks the surgery put her into a flairdiscussed the plans of oral steroids and then plaquenilshe doesn't want to do the plaquenil, discussed trying the prednisone and Clobex shampoosee how she is thenwill also increase the mounjaro to 7.5 discussed increased anxiety and depressionhaving stress at workcoming up one year anniversary of son passing away( hit by a train age 23, assumed suicide )has been on citalopram in the pastit worked 50% of the time but didn't completely helpdiscussed sertralinealso having panic attacksDIscussed xanax prn only in emergency only giving #12 How do you feel on the Mounjaro? goodNausea?Bowel Habits:Constipation?treat ment ?Satiety ?Meals per day?Snacking? Dose 5 mg weeklyGoing to send to My fitness pal calories ? Did you get a scale that syncs to your phone? Any specific factors impeding your wt loss ? Are you incorporating any specific diet plan with the medication other than calorie restriction? Do you currently have an activity plan?How many days per week?Total minutes per day:Cardio days ?weights days?Discussed the importance of basting puller activity for maintenance of weight loss. Discussed importance of weight lifting for toning. I encouraged the patient to download the Total Immersion JAYANT to your smart phone or tablet. There are great resources for various types of activity for cardio, toning and weights. It also has recipes, tips on how to train, and a ton of workouts. The jayant is free or $25 a year for the PRO version. You can also screen share to your TV. Hydration: We discussed Mounjaro again how it is not approved for wt loss, only type 2 DM, but it is being fast tracked for FDA approval for wt loss.Advancing the dosage to: Any history of pancreatitis?Any history of gallstones?Do you or anyone in your family have any history of thyroid cancer? Specifically medullary thyroid cancer? High Wt: 183 on mounjaro got to 135SW: 185 Date: mayW: 139BMI Starting : 28.97BMI Current: 139GW: first 135GW: fpc 135Waist umbilical circumference : Past attempts for wt loss:Mounjaro sleeveall diets Co- Morbid conditions: Htn and chol when started Today's visit included 15 minutes worth of Counseling. This included behavioral, nutritional, and physical activity modification. 02/07/23Weight loss consultation: spent 45 minutes face to face counselling the pt in regards to wt loss medications, options, what is involved in follow up and treatment, answered questions.Also reviewed patients history and labsVit B12 low and folate lowVit D: 50 K weeklyPt was on Mounjaro high dose was 10 mg , then decreased to 7.5 mgseveral boxes of the mounjaro at home 2.5, 5 and 7.5 at homehad abdominoplasty done 5 weeks agohas been getting her mounjanette from [employer] to get me the records for her chartshe is here for me to continue her treatment and maintenance on the mounjaro PCP: me Family Hx of obesity: yes co morbid disease:HTN: yes when she was overweight was on medicationDM: deniedSleep apnea: deniedPCOS: deniedElevated lipids : yesinsulin resistance: deniedthyroid disease: denied Over what period of time have you gained the weight? covid hit and was at 150 and then she gained 35#'s was drinking at home now only drinks socially now Any specific factors that contributed to the weight gain ? COVID and drinking too much Do you currently have an activity plan? yet but not currently able to because she is post op We discussed Any history of pancreatitis? deniedAny history of gallstones?deniedAny history of thyroid cancer? deniedAny family history of thyroid cancer? denied High Wt: 185 was start wt on mounjaro 05/2022 got down to 135CW: 146.8starting date: may 2022 185BMI: 28.97 (5'6)First goal weight :fpc GW: 135co morbidity of htn and chol when started Past attempts for wt loss: Mounjaro sleeveall diets Co- Morbid conditions: htn and elevated lipids Any previous surgical interventions: had sleeve in 2011, high wt wt 215 got down to 135 Counseling including behavorial, nutritional, and physical activity took place at today's visit. advised to start 2.5 next week at 6 weeks post opdiscussed the importance of her healing. As well as increasing her protein intake to help with thatand will order 5 mg. her goal is to get back down to the 135 and then maintain She most likely will end up on the 2.5 weekly or the 5 mg and stretching the time out 2-3 weeks in between. Counseling including behavorial, nutritional, and physical activity took place at today's visit. ED Kam [id number] [facility],[address], [place], [address], [facility] 07/15/2023 07:16:24 3 text/html 07/15/23 follow upanxiety and depressionmedication on 100 of sertraline, states that when we increased her dose it had a shift in her appetite to decrease it dramaticallyhas been doing mounjaro weekly but this time it has been 10 days but is not hungrierno nauseahas lost 7#'s since the last visitfeels like she is in the space where she just had her sleeve procedureis feeling better on the sertraline as far as the depression and anxiety, hasn't had to take ativanno panic issuestherapy : wait listed, supposed to start in a job interview for a [employer] roleBP home average 130/85 has been the high at homeLisinopril goodMounjaro taking once a week 06/18/23 Weight Management : Mounjaropt is on maintenance no issues with maintenanceDiscussed the sertraline, hasn't noticed a difference, going to increase the dose, to 100,has had 2 panic attacks, used the ativan oncedenies any thoughts of harming herself or othersHeard from Dr Toussaint's office is playing phone taggoing to email me her labs , they were reviewed see scanned in results Also discussed her elevated BP, has been running 140's/90's has been on amlodipine in the past and caused decreased sex drive. willing to try lisinopril+ FHx of htn, denies CP H/A or visual changesbut she can tell when it is elevated at home How do you feel on the Mounjaro? good taking 5 mg once a week, wt is steadyNausea? deniedBowel Habits: noneConstipation? deniedtreatment ? deniedSatiety ? goodMeals per day? 2Snacking? yes Dose 5 mg weeklyGoing to send to [employer] My fitness pal calories ? doing high protien, eats to full her body, eats clean Did you get a scale that syncs to your phone? yes Any specific factors impeding your wt loss ? denied Are you incorporating any specific diet plan with the medication other than calorie restriction? high protien Do you currently have an activity plan? 2 times a weekHow many days per week?Total minutes per day:Cardio days ? 100%weights days?Discussed the importance of fpc activity for maintenance of weight loss. Discussed importance of weight lifting for toning. I encouraged the patient to download the FitOn JAYANT to your smart phone or tablet. There are great resources for various types of activity for cardio, toning and weights. It also has recipes, tips on how to train, and a ton of workouts. The jayant is free or $25 a year for the PRO version. You can also screen share to your TV. Hydration: We discussed Mounjaro again how it is not approved for wt loss, only type 2 DM, but it is being fast tracked for FDA approval for wt loss.Advancing the dosage to: Any history of pancreatitis? deniedAny history of gallstones? deniedDo you or anyone in your family have any history of thyroid cancer? Specifically medullary thyroid cancer? deniedDo you or anyone in your family have a history of Multiple endocrine neoplasia syndrome type 2?denied High Wt: 183 got to 135 on mounjaroSW: 185 Date:mayW: 138.4BMI Starting : 28.97BMI Current: 22.3GW: first 135GW: fpc 135Waist umbilical circumference : Past attempts for wt loss:Mounjaro sleeveall diets Co- Morbid conditions: Htn and chol when startedPast attempts for wt loss: Today's visit included 15 minutes worth of Counseling. This included behavioral, nutritional, and physical activity modification. 05/19/23Weight Management : Thom Benson diagnosed with LPPhas lost a ton of hairthinks the surgery put her into a flairdiscussed the plans of oral steroids and then plaquenilshe doesn't want to do the plaquenil, discussed trying the prednisone and Clobex shampoosee how she is thenwill also increase the mounjaro to 7.5 discussed increased anxiety and depressionhaving stress at workcoming up one year anniversary of son passing away( hit by a train age 23, assumed suicide )has been on citalopram in the pastit worked 50% of the time but didn't completely helpdiscussed sertralinealso having panic attacksDIscussed xanax prn only in emergency only giving #12 How do you feel on the Mounjaro? goodNausea?Bowel Habits:Constipation?treat ment ?Satiety ?Meals per day?Snacking? Dose 5 mg weeklyGoing to send to My fitness pal calories ? Did you get a scale that syncs to your phone? Any specific factors impeding your wt loss ? Are you incorporating any specific diet plan with the medication other than calorie restriction? Do you currently have an activity plan?How many days per week?Total minutes per day:Cardio days ?weights days?Discussed the importance of basting puller activity for maintenance of weight loss. Discussed importance of weight lifting for toning. I encouraged the patient to download the SPIRIT NavigationOn JAYANT to your smart phone or tablet. There are great resources for various types of activity for cardio, toning and weights. It also has recipes, tips on how to train, and a ton of workouts. The jayant is free or $25 a year for the PRO version. You can also screen share to your TV. Hydration: We discussed Mounjaro again how it is not approved for wt loss, only type 2 DM, but it is being fast tracked for FDA approval for wt loss.Advancing the dosage to: Any history of pancreatitis?Any history of gallstones?Do you or anyone in your family have any history of thyroid cancer? Specifically medullary thyroid cancer? High Wt: 183 on mounjaro got to 135SW: 185 Date: mayW: 139BMI Starting : 28.97BMI Current: 139GW: first 135GW: basting puller 135Waist umbilical circumference : Past attempts for wt loss:Mounjaro sleeveall diets Co- Morbid conditions: Htn and chol when started Today's visit included 15 minutes worth of Counseling. This included behavioral, nutritional, and physical activity modification. 02/07/23Weight loss consultation: spent 45 minutes face to face counselling the pt in regards to wt loss medications, options, what is involved in follow up and treatment, answered questions.Also reviewed patients history and labsVit B12 low and folate lowVit D: 50 K weeklyPt was on Mounjaro high dose was 10 mg , then decreased to 7.5 mgseveral boxes of the mounjaro at home 2.5, 5 and 7.5 at homehad abdominoplasty done 5 weeks agohas been getting her mounjaro from [employer] to get me the records for her chartshe is here for me to continue her treatment and maintenance on the mounjaro PCP: me Family Hx of obesity: yes co morbid disease:HTN: yes when she was overweight was on medicationDM: deniedSleep apnea: deniedPCOS: deniedElevated lipids : yesinsulin resistance: deniedthyroid disease: denied Over what period of time have you gained the weight? stan hit and was at 150 and then she gained 35#'s was drinking at home now only drinks socially now Any specific factors that contributed to the weight gain ? COVID and drinking too much Do you currently have an activity plan? yet but not currently able to because she is post op We discussed Any history of pancreatitis? deniedAny history of gallstones?deniedAny history of thyroid cancer? deniedAny family history of thyroid cancer? denied High Wt: 185 was start wt on mounjaro 05/2022 got down to 135CW: 146.8starting date: may 2022 185BMI: 28.97 (5'6)First goal weight :fpc GW: 135co morbidity of htn and chol when started Past attempts for wt loss: Mounjaro sleeveall diets Co- Morbid conditions: htn and elevated lipids Any previous surgical interventions: had sleeve in 2011, high wt wt 215 got down to 135 Counseling including behavorial, nutritional, and physical activity took place at today's visit. advised to start 2.5 next week at 6 weeks post opdiscussed the importance of her healing. As well as increasing her protein intake to help with thatand will order 5 mg. her goal is to get back down to the 135 and then maintain She most likely will end up on the 2.5 weekly or the 5 mg and stretching the time out 2-3 weeks in between. Counseling including behavorial, nutritional, and physical activity took place at today's visit. ED [facility] [id number] [facility],[address], [place], [address], [facility] 07/23/2023 06:28:17 3 text/html 07/23/23 follow upI confirm that I received verbal consent from the patient for the virtual visit. This telemedicine encounter was performed using live video and audio. 17 mins spent with the pt , had to do 2 video calls , first one lost sound Nutrition :eating more often , 2 meals and snacks high protienmaking an effort to make sure she is eating regularlyoff Mounjaro for 2+ weekshunger is coming back a little bitHas gained 2 pounds since last visit Agreed she is going to wait till her wt is back up to 138 before starting back on the mounjaro. She then will do the 2.5 mg dose She states she is feeling better and overall has more energystill taking the 100mg of sertraline Interview for new job went well, waiting to hear about an offer Discussed folic acid def, she did not have it tested with her last labs, vit D def had resolved, will recheck next visit 07/15/23 follow upanxiety and depressionmedication on 100 of sertraline, states that when we increased her dose it had a shift in her appetite to decrease it dramaticallyhas been doing mounjaro weekly but this time it has been 10 days but is not hungrierno nauseahas lost 7#'s since the last visitfeels like she is in the space where she just had her sleeve procedureis feeling better on the sertraline as far as the depression and anxiety, hasn't had to take ativanno panic issuestherapy : wait listed, 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 home average 130/85 has been the high at homeLisinopril goodMounjaro taking once a week 06/18/23 Weight Management : Mounjaropt is on maintenance no issues with maintenanceDiscussed the sertraline, hasn't noticed a difference, going to increase the dose, to 100,has had 2 panic attacks, used the ativan oncedenies any thoughts of harming herself or othersHeard from Dr Toussaint's office is playing phone taggoing to email me her labs , they were reviewed see scanned in results Also discussed her elevated BP, has been running 140's/90's has been on amlodipine in the past and caused decreased sex drive. willing to try lisinopril+ FHx of htn, denies CP H/A or visual changesbut she can tell when it is elevated at home How do you feel on the Mounjaro? good taking 5 mg once a week, wt is steadyNausea? deniedBowel Habits: noneConstipation? deniedtreatment ? deniedSatiety ? goodMeals per day? 2Snacking? yes Dose 5 mg weeklyGoing to send to [facility] My fitness pal calories ? doing high protien, eats to full her body, eats clean Did you get a scale that syncs to your phone? yes Any specific factors impeding your wt loss ? denied Are you incorporating any specific diet plan with the medication other than calorie restriction? high protien Do you currently have an activity plan? 2 times a weekHow many days per week?Total minutes per day:Cardio days ? 100%weights days?Discussed the importance of fpc activity for maintenance of weight loss. Discussed importance of weight lifting for toning. I encouraged the patient to download the Total Immersion JAYANT to your smart phone or tablet. There are great resources for various types of activity for cardio, toning and weights. It also has recipes, tips on how to train, and a ton of workouts. The jayant is free or $25 a year for the PRO version. You can also screen share to your TV. Hydration: We discussed Mounjaro again how it is not approved for wt loss, only type 2 DM, but it is being fast tracked for FDA approval for wt loss.Advancing the dosage to: Any history of pancreatitis? deniedAny history of gallstones? deniedDo you or anyone in your family have any history of thyroid cancer? Specifically medullary thyroid cancer? deniedDo you or anyone in your family have a history of Multiple endocrine neoplasia syndrome type 2?denied High Wt: 183 got to 135 on mounjaroSW: 185 Date:mayW: 138.4BMI Starting : 28.97BMI Current: 22.3GW: first 135GW: fpc 135Waist umbilical circumference : Past attempts for wt loss:Mounjaro sleeveall diets Co- Morbid conditions: Htn and chol when startedPast attempts for wt loss: Today's visit included 15 minutes worth of Counseling. This included behavioral, nutritional, and physical activity modification. 05/19/23Weight Management : Thom Benson diagnosed with LPPhas lost a ton of hairthinks the surgery put her into a flairdiscussed the plans of oral steroids and then plaquenilshe doesn't want to do the plaquenil, discussed trying the prednisone and Clobex shampoosee how she is thenwill also increase the mounjaro to 7.5 discussed increased anxiety and depressionhaving stress at workcoming up one year anniversary of son passing away( hit by a train age 23, assumed suicide )has been on citalopram in the pastit worked 50% of the time but didn't completely helpdiscussed sertralinealso having panic attacksDIscussed xanax prn only in emergency only giving #12 How do you feel on the Mounjaro? goodNausea?Bowel Habits:Constipation?treat ment ?Satiety ?Meals per day?Snacking? Dose 5 mg weeklyGoing to send to My fitness pal calories ? Did you get a scale that syncs to your phone? Any specific factors impeding your wt loss ? Are you incorporating any specific diet plan with the medication other than calorie restriction? Do you currently have an activity plan?How many days per week?Total minutes per day:Cardio days ?weights days?Discussed the importance of basting puller activity for maintenance of weight loss. Discussed importance of weight lifting for toning. I encouraged the patient to download the Total Immersion JAYANT to your smart phone or tablet. There are great resources for various types of activity for cardio, toning and weights. It also has recipes, tips on how to train, and a ton of workouts. The jayant is free or $25 a year for the PRO version. You can also screen share to your TV. Hydration: We discussed Mounjaro again how it is not approved for wt loss, only type 2 DM, but it is being fast tracked for FDA approval for wt loss.Advancing the dosage to: Any history of pancreatitis?Any history of gallstones?Do you or anyone in your family have any history of thyroid cancer? Specifically medullary thyroid cancer? High Wt: 183 on mounjaro got to 135SW: 185 Date: mayW: 139BMI Starting : 28.97BMI Current: 139GW: first 135GW: fpc 135Waist umbilical circumference : Past attempts for wt loss:Mounjaro sleeveall diets Co- Morbid conditions: Htn and chol when started Today's visit included 15 minutes worth of Counseling. This included behavioral, nutritional, and physical activity modification. 02/07/23Weight loss consultation: spent 45 minutes face to face counselling the pt in regards to wt loss medications, options, what is involved in follow up and treatment, answered questions.Also reviewed patients history and labsVit B12 low and folate lowVit D: 50 K weeklyPt was on Mounjaro high dose was 10 mg , then decreased to 7.5 mgseveral boxes of the mounjaro at home 2.5, 5 and 7.5 at homehad abdominoplasty done 5 weeks agohas been getting her mounjanette from [employer] to get me the records for her chartshe is here for me to continue her treatment and maintenance on the mounjaro PCP: me Family Hx of obesity: yes co morbid disease:HTN: yes when she was overweight was on medicationDM: deniedSleep apnea: deniedPCOS: deniedElevated lipids : yesinsulin resistance: deniedthyroid disease: denied Over what period of time have you gained the weight? covid hit and was at 150 and then she gained 35#'s was drinking at home now only drinks socially now Any specific factors that contributed to the weight gain ? COVID and drinking too much Do you currently have an activity plan? yet but not currently able to because she is post op We discussed Any history of pancreatitis? deniedAny history of gallstones?deniedAny history of thyroid cancer? deniedAny family history of thyroid cancer? denied High Wt: 185 was start wt on mounjaro 05/2022 got down to 135CW: 146.8starting date: may 2022 185BMI: 28.97 (5'6)First goal weight :basting puller GW: 135co morbidity of htn and chol when started Past attempts for wt loss: Mounjaro sleeveall diets Co- Morbid conditions: htn and elevated lipids Any previous surgical interventions: had sleeve in 2011, high wt wt 215 got down to 135 Counseling including behavorial, nutritional, and physical activity took place at today's visit. advised to start 2.5 next week at 6 weeks post opdiscussed the importance of her healing. As well as increasing her protein intake to help with thatand will order 5 mg. her goal is to get back down to the 135 and then maintain She most likely will end up on the 2.5 weekly or the 5 mg and stretching the time out 2-3 weeks in between. Counseling including behavorial, nutritional, and physical activity took place at today's visit. ED Kam [address] [facility], [place], [address], [facility] [place] 07/23/2023 09:40:16 3 text/html 08/25/23 follow upfolic acid def, rechecking lab Wt: 140 today she is happy where she is at the goal 135-140she is having a pexy done next month 10/06going to wait till after the surgery to restart advised to wait for 4 weeks post op Discussed when restarting doing 2.5 mg every 10 days and see that she can maintain her wt lossdiscussed the importance of protien and discussed options anxiety on sertraline 100 mg doing good, started therapy with Dr Toussaint, it is going well she would like a flu shot BP doing well continue lisionpril 07/23/23 follow upI confirm that I received verbal consent from the patient for the virtual visit. This telemedicine encounter was performed using live video and audio. 17 mins spent with the pt , had to do 2 video calls , first one lost sound Nutrition :eating more often , 2 meals and snacks high protienmaking an effort to make sure she is eating regularlyoff Mounjaro for 2+ weekshunger is coming back a little bitHas gained 2 pounds since last visit Agreed she is going to wait till her wt is back up to 138 before starting back on the mounjaro. She then will do the 2.5 mg dose She states she is feeling better and overall has more energystill taking the 100mg of sertraline Interview for new job went well, waiting to hear about an offer Discussed folic acid def, she did not have it tested with her last labs, vit D def had resolved, will recheck next visit 07/15/23 follow upanxiety and depressionmedication on 100 of sertraline, states that when we increased her dose it had a shift in her appetite to decrease it dramaticallyhas been doing mounjaro weekly but this time it has been 10 days but is not hungrierno nauseahas lost 7#'s since the last visitfeels like she is in the space where she just had her sleeve procedureis feeling better on the sertraline as far as the depression and anxiety, hasn't had to take ativanno panic issuestherapy : wait listed, 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 home average 130/85 has been the high at homeLisinopril goodMounjaro taking once a week 06/18/23 Weight Management : Mounjaropt is on maintenance no issues with maintenanceDiscussed the sertraline, hasn't noticed a difference, going to increase the dose, to 100,has had 2 panic attacks, used the ativan oncedenies any thoughts of harming herself or othersHeard from Dr Toussaint's office is playing phone taggoing to email me her labs , they were reviewed see scanned in results Also discussed her elevated BP, has been running 140's/90's has been on amlodipine in the past and caused decreased sex drive. willing to try lisinopril+ FHx of htn, denies CP H/A or visual changesbut she can tell when it is elevated at home How do you feel on the Mounjaro? good taking 5 mg once a week, wt is steadyNausea? deniedBowel Habits: noneConstipation? deniedtreatment ? deniedSatiety ? goodMeals per day? 2Snacking? yes Dose 5 mg weeklyGoing to send to [email or web address] My [employer] pal calories ? doing high protien, eats to full her body, eats clean Did you get a scale that syncs to your phone? yes Any specific factors impeding your wt loss ? denied Are you incorporating any specific diet plan with the medication other than calorie restriction? high protien Do you currently have an activity plan? 2 times a weekHow many days per week?Total minutes per day:Cardio days ? 100%weights days?Discussed the importance of fpc activity for maintenance of weight loss. Discussed importance of weight lifting for toning. I encouraged the patient to download the [employer] JAYANT to your smart phone or tablet. There are great resources for various types of activity for cardio, toning and weights. It also has recipes, tips on how to train, and a ton of workouts. The jayant is free or $25 a year for the PRO version. You can also screen share to your TV. Hydration: We discussed Mounjaro again how it is not approved for wt loss, only type 2 DM, but it is being fast tracked for FDA approval for wt loss.Advancing the dosage to: Any history of pancreatitis? deniedAny history of gallstones? deniedDo you or anyone in your family have any history of thyroid cancer? Specifically medullary thyroid cancer? deniedDo you or anyone in your family have a history of Multiple endocrine neoplasia syndrome type 2?denied High Wt: 183 got to 135 on mounjaroSW: 185 Date:mayW: 138.4BMI Starting : 28.97BMI Current: 22.3GW: first 135GW: fpc 135Waist umbilical circumference : Past attempts for wt loss:Mounjaro sleeveall diets Co- Morbid conditions: Htn and chol when startedPast attempts for wt loss: Today's visit included 15 minutes worth of Counseling. This included behavioral, nutritional, and physical activity modification. 05/19/23Weight Management : Thom Benson diagnosed with LPPhas lost a ton of hairthinks the surgery put her into a flairdiscussed the plans of oral steroids and then plaquenilshe doesn't want to do the plaquenil, discussed trying the prednisone and Clobex shampoosee how she is thenwill also increase the mounjaro to 7.5 discussed increased anxiety and depressionhaving stress at workcoming up one year anniversary of son passing away( hit by a train age 23, assumed suicide )has been on citalopram in the pastit worked 50% of the time but didn't completely helpdiscussed sertralinealso having panic attacksDIscussed xanax prn only in emergency only giving #12 How do you feel on the Mounjaro? goodNausea?Bowel Habits:Constipation?treat ment ?Satiety ?Meals per day?Snacking? Dose 5 mg weeklyGoing to send to My fitness pal calories ? Did you get a scale that syncs to your phone? Any specific factors impeding your wt loss ? Are you incorporating any specific diet plan with the medication other than calorie restriction? Do you currently have an activity plan?How many days per week?Total minutes per day:Cardio days ?weights days?Discussed the importance of basting puller activity for maintenance of weight loss. Discussed importance of weight lifting for toning. I encouraged the patient to download the [employer] JAYANT to your smart phone or tablet. There are great resources for various types of activity for cardio, toning and weights. It also has recipes, tips on how to train, and a ton of workouts. The jayant is free or $25 a year for the PRO version. You can also screen share to your TV. Hydration: We discussed Mounjaro again how it is not approved for wt loss, only type 2 DM, but it is being fast tracked for FDA approval for wt loss.Advancing the dosage to: Any history of pancreatitis?Any history of gallstones?Do you or anyone in your family have any history of thyroid cancer? Specifically medullary thyroid cancer? High Wt: 183 on mounjaro got to 135SW: 185 Date: mayW: 139BMI Starting : 28.97BMI Current: 139GW: first 135GW: fpc 135Waist umbilical circumference : Past attempts for wt loss:Mounjaro sleeveall diets Co- Morbid conditions: Htn and chol when started Today's visit included 15 minutes worth of Counseling. This included behavioral, nutritional, and physical activity modification. 02/07/23Weight loss consultation: spent 45 minutes face to face counselling the pt in regards to wt loss medications, options, what is involved in follow up and treatment, answered questions.Also reviewed patients history and labsVit B12 low and folate lowVit D: 50 K weeklyPt was on Mounjaro high dose was 10 mg , then decreased to 7.5 mgseveral boxes of the mounjaro at home 2.5, 5 and 7.5 at homehad abdominoplasty done 5 weeks agohas been getting her mounjaro from [employer] to get me the records for her chartshe is here for me to continue her treatment and maintenance on the mounjaro PCP: me Family Hx of obesity: yes co morbid disease:HTN: yes when she was overweight was on medicationDM: deniedSleep apnea: deniedPCOS: deniedElevated lipids : yesinsulin resistance: deniedthyroid disease: denied Over what period of time have you gained the weight? stan hit and was at 150 and then she gained 35#'s was drinking at home now only drinks socially now Any specific factors that contributed to the weight gain ? COVID and drinking too much Do you currently have an activity plan? yet but not currently able to because she is post op We discussed Any history of pancreatitis? deniedAny history of gallstones?deniedAny history of thyroid cancer? deniedAny family history of thyroid cancer? denied High Wt: 185 was start wt on mounjaro 05/2022 got down to 135CW: 146.8starting date: may 2022 185BMI: 28.97 (5'6)First goal weight :basting puller GW: 135co morbidity of htn and chol when started Past attempts for wt loss: Mounjaro sleeveall diets Co- Morbid conditions: htn and elevated lipids Any previous surgical interventions: had sleeve in 2011, high wt wt 215 got down to 135 Counseling including behavorial, nutritional, and physical activity took place at today's visit. advised to start 2.5 next week at 6 weeks post opdiscussed the importance of her healing. As well as increasing her protein intake to help with thatand will order 5 mg. her goal is to get back down to the 135 and then maintain She most likely will end up on the 2.5 weekly or the 5 mg and stretching the time out 2-3 weeks in between. Counseling including behavorial, nutritional, and physical activity took place at today's visit. ED Kam [address] [facility],[address], [place], [address], [facility] 08/25/2023 09:01:49 3 text/html 09/14/23acute visit started yesterday, but woke up this morning much worse sore throat yes fever denied cough yesnon productive SOB denied CP tight breathingHeadache yes Body aches yes ear pain yes pressure Nausea denied Vomiting denied Diarrhea denied Exposure denied covid Hx yes Vaccinations: Covid: 4Flu: yes 2022 ED Kam [address] [facility],[address], [place], [address], [facility] 09/14/2023 19:39:34 OBGyn Episode No OBEpisode recorded.
--- OUTSIDE RECORDS SUMMARY | 2025-04-20 11:53 | XMS_ITS | Patient Health Record ---
Author Organization [facility] Address [address] [place] [address] Care Team Providers Care Clinical Dietetic Technician Name Role Phone Nicanor Fink Primary Care Provider [phone] Allergies Allergen (clinical drug ingredient) Drug/Non Drug Allergy documented on EMR Reaction Allergy Type Onset Date Status Sulf-10 rash Drug Allergy Active Reason For Referral No Information Medications Medication SIG (Take, Route, Frequency, Duration) Notes Start Date End Date Status predniSONE 20 MG 1 tablet Orally Once a day 03/25/2021 Active Probiotic - as directed Orally Active Hydrocortisone 1 % 1 application Externally Once a day Active Fiber Adult Gummies 2 GM 2 gummies Orall y once a day Active Amoxicillin-Pot Clavulanate 875-125 MG 1 tablet Orally every 12 hrs 03/25/2021 Active Multivitamin - 1 tablet Orally Once a day; Duration: 30 day(s) Active Colace 100 MG 1 capsule as needed Orally Once a day; Duration: 30 day(s) Not-Taking amLODIPine Besylate 5 MG 1 tablet Orally Once a day Active Vitamin D3 50 MCG (1999 UT) 1 capsule Orally Once a day; Duration: 30 day(s) Active Immunizations Vaccine Route Administration Date Status Comme nts Fluzone Quadrivalent IIV4 VACC NO PRSV 0.5 ML IM Unknown 07/05/2020 Administered Pfizer-BioNTech COVID-19 Vaccine Unknown 10/30/2020 Administered Pfizer-BioNTech COVID-19 Vaccine Unknown 11/20/2020 Administered TDAP VACCINE 7 YRS/> IM IM Intramuscular 07/10/2020 Administered [facility]:[id number] Social History Tobacco Use: Social History Observation Description Date Details (start date - stop date) Never Smoker NA - NA Tobacco Use/Smoking Question Answer Notes Smoking Status: nonsmoker Alcohol Screen (Audit-C) Question Answer Notes Alcohol Consumption in the Past Year: No Points: 0 Interpretation: Negative Problems Problem Type SNOMED Code ICD Code Onset Dates Problem Status W/U Status Risk Notes Problem Emotional lability (99324770) Emotional lability (R45.86) Active confirmed Problem Long-term current use of drug therapy (735057658) Encounter for long-term (current) use of other medications (Z79.899) Active confirmed Problem Seasonal allergy (308312725) Seasonal allergies (J30.2) Active confirmed Problem Essential hypertension (41225848) Essential hypertension (I10) Active confirmed Problem Generalized anxiety disorder (72154349) Generalized anxiety disorder (F41.1) Active confirmed Problem Body mass index 25-29 - overweight (667155692) BMI 25.0-25.9,adult (Z68.25) Active confirmed Problem Chronic frontal sinusitis (73632903) Sinusitis chronic, frontal (J32.1) Active confirmed Problem Family history of breast cancer (797161728) Family history of breast cancer (Z80.3) Active confirmed Problem Constipation (98816923) Constipation, unspecified constipation type (K59.00) Active confirmed Problem Eczema (04816074) Eczema, unspecified type (L30.9) Active confirmed Problem History of bariatric surgical procedure (020172754) H/O bariatric surgery (Z98.84) Active confirmed Problem History of hysterectomy (247680941) S/P hysterectomy (Z90.710) Active confirmed Plan Of Treatment No Information Insurance Providers Payer Name Payer Address Payer Phone Subscriber Number Group Number Insured Name Patient Relationship to Insured Coverage Start Date Coverage End Date Joint venture between [facility] [employer] [address] [place], [place] [phone] [id number] Ever Perry Spouse - patient is the spouse of the insured 0 Medical (General) History Medical History History ICD Code Consipation Eczema Anxiety/ Panic attacks Easy bruising Unexpected weight gain F/h of breast cancer, says g enetic testing showed 38% risk of breast cancer, BRCA1/2 neg, says she has breast MRI 05/2020 was normal. Surgical History Surgery Date(Month/Year) Partial hysterectomy (still have ovaries ) for adenomyosis 2011 Gastric Sleeve 2012
--- OUTSIDE RECORDS SUMMARY | 2025-04-20 11:53 | XMS_ITS | Patient Health Record ---
Author Organization [facility] Address [address] [place] [address] [address] [place] [address] Support Name Relationship Address Phone Jorden Lundbergt Emergency Contact Unknown Serina Flores Guarantor Unknown Unavailable Reason For Referral No Information Medications Medication SIG (Take, Route, Frequency, Duration) Notes Start Date End Date Status CeleXA 10 MG Oral Active Plan Of Treatment No Information Insurance Providers Payer Name Payer Address Payer Phone Subscriber Number Group Number Insured Name Patient Relationship to Insured Coverage Start Date Coverage End Date [facility] [address] [place] [phone] [id number] Serina Flores Self - patient is the insured
--- OUTSIDE RECORDS SUMMARY | 2025-04-20 11:54 | XMS_ITS | Data Portability ---
Author Organization [facility], [facility] Address [address] [place] [address] Care Team Providers Care Range Ecologist Name Role Phone PILAR MAHER Primary Care Provider Unavailabl e Assessment Encounter Date Assessment Date Assessment LastModified by Organization Details LastModified Time 02/24/2024 02/24/2024 58 min s with the pt on video and 20 min chart prep from old records Not available 02/24/2024 18:06:33 Plan of Treatment Reminders Order Date Submit Date Provider Last Modified By Organization Details Last Modified Time Details Appointments OM Follow- up 20 2024 09:00A M ED Kam Not available Not available Not available Lab lipid panel, serum 2024 025 Omnicademy [facility], [address], [address], [place], [address], 11/24/2024 04:21:47 CBC w/ auto diff 2024 025 [email or web address] [facility], [address], [address], [place], [address], 11/24/2024 04:21:49 vitamin D, 25-hydr oxy, total, serum 2023 024 [facility], [address], [address], [place], [address], 07/18/2024 05:24:51 vitamin B12 + folate, serum or blood 2023 0[facility] [address], [address], [place], [address], 07/18/2024 05:24:51 iron + TIBC + ferriti n, serum 2023 024 [facility], [address], [address], [place], [address], 07/18/2024 05:24:48 magnesi um, serum or plasma 2023 024 [facility], [address], [address], [place], [address], 07/18/2024 05:24:49 lipid panel, serum 2023 024 [facility], [address], [address], [place], [address], 07/18/2024 05:24:49 CMP, serum or plasma 2023 024 [facility], [address], [address], [place], [address], 07/18/2024 05:24:50 CBC w/ auto diff 2023 024 [facility], [address], [address], [place], [address], 07/18/2024 05:24:50 Referral None recorde d. Procedures None recorde d. Surgeries None recorde d. Imaging None recorde d. Medication Orders Zepboun d 2.5 mg/0.5 mL subcuta neous pen injecto r [id number] [facility] [place], [address] [place] [address], [id number], 02/28/2025 12:12:47 Zepboun d 5 mg/0.5 mL subcuta neous pen injecto r [address] [facility] [place], [address] [place] [address], [id number], 02/28/2025 10:53:48 Zepboun d 5 mg/0.5 mL subcuta neous pen injecto r 2024 025 [facility] [place], [address] [place] [address], [address], 02/28/2025 10:53:09 Zepboun d 5 mg/0.5 mL subcuta neous pen injecto r 2023 024 [email or web address] [facility] [place], [address] [place] [address], [id number], 02/28/2025 10:53:09 lisinop ril 10 mg tablet 2023 024 [id number], [address] [place], [place], [id number], 08/23/2024 15:15:03 Zepboun d 2.5 mg/0.5 mL subcuta neous pen injecto r 2023 024 [id number], [address] [place], [place], [id number], 07/18/2024 07:58:02 Patient TargetsNo targets recorded. Patient Instructions Encounter Date Encounter Id Patient Instructions Last Modified By Organization Details Last Modified Time 02/24/2024 [id number] learning about healthy weight [email or web address] Not available 02/24/2024 17:56:19 learning about dietary guidelines [email or web address] Not available 02/24/2024 17:56:20 Learning About Being Physically Active Not available 02/24/2024 17:56:20 learning about obesity [email or web address] Not available 02/24/2024 17:56:20 Following the MyPlate Food Guide: Care Instructions [email or web address] Not available 02/24/2024 17:56:19 eating healthy foods: care instructions [email or web address] Not available 02/24/2024 17:56:20 good sources of protein Not available 02/24/2024 17:56:20 constipation education Not available 02/24/2024 17:56:19 Thank you for visiting with me at [facility]. It has been my pleasure caring for you. If you have any further needs or questions, please reach out to us via the portal, or by calling the office at [phone]. Medication refills should be submitted via the patient portal. If you have a Non-Urgent need, you can text me at on my work cell at [phone]. Visit edwin C. Go to Md[employer] savings card to download your card. If you have coverage under your insurance for the medication it is $25 with the savings card. If you insurance does not cover the medications, the arndt pay cost is $550 per month with the card. Thanks You have been given orders to go get labs done at [facility]. They will have the orders, you can go to [email or web address] to make an appointment to have them done. It does say on the site appointments are not necessary, but it may help with timing. Ideally I would like you to have them done within 7 days. Fasting at least 8 hours with nothing to eat or drink but water. Weight loss Management MOUNJARO/ZEPBOUND Instructions: MOUNJARO is a medication used for Diabetes. The same medication ZEPBOUND used for weight loss. They are both the same GLP1/GIP medication Trizepitide. They are named depending on why it is being prescribed. CONGRATULATIONS!! ! On making the choice to change your life and become healthier version of YOU!! Please reach out to me if you have questions or concerns along the way. YOUR PATIENT PORTAL IS THE BEST WAY TO COMMUNICATE FOR MEDICATION REFILLS, APPOINTMENT REQUEST OR GENERAL QUESTIONS. My work cell is [phone], please use for NON-URGENT text, these are welcome at any time. I do not monitor that number daily and it can take up to a week for a reply. If you have an URGENT need, please call the office at [phone]. It is important that you use CONTROL while taking these medication. They have not been studied for safety in . You should be off the medications for 3 months prior to conceiving. This medicine will help decrease your appetite and cravings. But it is still important that you eat A MINIMUM OF 1200 calories a day to prevent your body from going into starvation mode and slowing your metabolism. It works by having a higher level of the GLP1 hormone in your system and that is the hormone that tells your brain that you are full and signals you to stop eating. The GIP hormone helps your insulin be more sensitive when you eat. The medication also works by slowing down your stomach emptying, and the activity of your GI tract. This sometimes can cause the most common side effects of NAUSEA and or CONSTIPATION. You have been given ZOFRAN as needed for the NAUSEA, and it is important to stay hydrated. 100 ounces of water daily is ideal. For the CONSTIPATION make sure you are staying hydrated, and you can use things like FIBER GUMMIES, MIRALAX, AND STOOL SOFTENERS as needed. If those are not helping, please reach out to me for further instructions. I do not want you using Laxatives. If you have prolonged or severe nausea/ vomiting/ or Diarrhea greater than 36 hours please contact the office. In trial these medication has been shown to have weight loss 21 % of body weight in 36 weeks. It is injected into subcutaneous fat weekly. Abdomen, thigh, or upper arm. You need to incorporate a HEALTHY DIET and INCREASED ACTIVITY to have the best outcome when using these medications. We do have registered dieticians that can help you in your journey if you would like to be referred to them please let me know. Our goal is to have your body get rid of fat vs muscle. If you are not eating a healthy number of calories, it has been shown to shut down your overall metabolism and cause you to stop losing weight and you will burn muscle instead of fat for fuel. It is also important that you incorporate activity including weight lifting and resistance training to help maintain your lean muscle mass. The calories you burn during the activity should be added to your daily intake. You will have follow ups with me once a month for at least the first 3 months. We will discuss how your progress is going. We will cover nutritional, behavioral, activity and lifestyle changes at those appointments. This is a journey that we will go through together. I look forward to helping you become a healthier version of the amazing person you already are. Remember it is a marathon and not a sprint. Gradual weight loss is healthy weight loss. [place] is 1-2 pounds per week for the average person. Rapid weight loss can also contribute to issues of gallstones and pancreatitis. I have sent the prescription for Prior Authorization. The prescription for MOUNJARO/ ZEPBOUND has 4 Pens already preloaded with medication needles. You will use one each week. You need to keep the pens refrigerated except for when you are using them. If you do not hear from your pharmacy 2 weeks, please let me know. The following items are OPTIONAL but can be helpful when starting your journey. 1. You can Download my fitness Pal on your phone, track your daily calorie intake. Set your intake to calories 3661-9098 a day. This can be helpful in the first few months to monitor what your intake is and also your macro's. [place] would be 40 % carbohydrates, 30% protien, and 30% fats. 2. You can purchase a scale that syncs to your smart phone. I recommend the Renpho scale you can purchase it on [employer] link: @https://Movile/d/9 3nhwbH. 3. If you have a smart watch, Yopima bit, wear it daily to help track your steps and exercise. You can sync it to my fitness pal. When you are active, and earning more calories via exercise, remember to add those to your daily goal. 4. I encourage you to take your pictures and measurements. At least front, side and back views wearing shorts, bathing suits, and sports bra. It is always encouraging to see how far you have come even if the scale isn't moving as fast as you would like it. We call those non scale victories. 5. I encourage you to download the [employer] JAYANT to your smart phone or tablet. There are great resources for various types of activity for cardio, toning and weights. It also has recipes, tips on how to train, and a ton of workouts. The jayant is free or $25 a year for the PRO version. You can also screen share to your TV. Remember TIME+ hard work = Success Behavior modification, calorie deficit, proper nutrition, proper sleep routines, and physical activity are going to be the pillars of your success and help you maintain your goal. Pilar Maher PAC Metabolic Health/ Obesity Medicine and Primary Care. (NON URGENT MATTERS) Office [phone] (URGENT MATTERS) YOUR PATIENT PORTAL IS THE BEST WAY TO COMMUNICATE FOR MEDICATION REFILLS, APPOINTMENT OR GENERAL QUESTIONS. [email or web address] Not available 02/24/2024 17:58:57 08/23/2024 [id number] medical record request* - And the patient's PCP please send most recent mammogram [email or web address] Not available 08/28/2024 08:07:21 11/21/2024 [id number] Thank you for visiting with me at [facility]. It has been my pleasure caring for you. If you have any further needs or questions, please reach out to us via the portal, or by calling the office at [phone]. Medication refills should be submitted via the patient portal. If you have a Non-Urgent need, you can text me at on my work cell at [phone]. I only use this phone during my business hours 08-24, thru 04-20. Your follow up has been scheduled. If it is virtual expect for a call to check you in and update your medical history with you 10-15 mins prior to your visit time. If you are more than 15 mins late for your appointment, you may be asked to reschedule to another date. You have been given orders to go get labs done at [facility]. They will have the orders, you can go to [email or web address] to make an appointment to have them done. It does say on the site appointments are not necessary, but it may help with timing. Ideally I would like you to have them done within 7 days. Fasting at least 8 hours with nothing to eat or drink but water. Go to Zepbound savings card to download your card. If you have coverage under your insurance for the medication it is $25 with the savings card. If you insurance does not cover the medications, the arndt pay cost is $550 per month with the card. With insurance coverage and a Prior authorization, you could pay as little as $25 for a 1-month, 2-month, or 3-month prescription fill of Zepbound. Month is defined as 28-days and up to 4 pens. Card savings are subject to a maximum monthly savings of up to $150 per 1-month prescription, $300 per 2-month prescription, or $450 per 3-month prescription fill and separate maximum annual savings of up to $1,800 per calendar year. Card may be used for a maximum of up to 13 prescription fills per calendar year. Weight loss Management MOUNJARO/ZEPBOUND Instructions: MOUNJARO is a medication used for Diabetes. The same medication ZEPBOUND used for weight loss. They are both the same GLP1/GIP medication tirzepatide. They are named depending on why it is being prescribed. CONGRATULATIONS!! ! On making the choice to change your life and become healthier version of YOU!! Please reach out to me if you have questions or concerns along the way. YOUR PATIENT PORTAL IS THE BEST WAY TO COMMUNICATE FOR MEDICATION REFILLS, APPOINTMENT REQUEST OR GENERAL QUESTIONS. My work cell is [phone], please use for NON-URGENT text, these are welcome at any time. I do not monitor that number daily and it can take up to a week for a reply. If you have an URGENT need, please call the office at [phone]. It is important that you use CONTROL while taking these medication. They have not been studied for safety in . You should be off the medications for 3 months prior to conceiving. This medicine will help decrease your appetite and cravings. But it is still important that you eat A MINIMUM OF 1200 calories a day to prevent your body from going into starvation mode and slowing your metabolism. It works by having a higher level of the GLP1 hormone in your system and that is the hormone that tells your brain that you are full and signals you to stop eating. The GIP hormone helps your insulin be more sensitive when you eat. The medication also works by slowing down your stomach emptying, and the activity of your GI tract. This sometimes can cause the most common side effects of NAUSEA and or CONSTIPATION. You have been given ZOFRAN as needed for the NAUSEA, and it is important to stay hydrated. 100 ounces of water daily is ideal. For the CONSTIPATION make sure you are staying hydrated, and you can use things like FIBER GUMMIES, MIRALAX, AND STOOL SOFTENERS as needed. If those are not helping, please reach out to me for further instructions. I do not want you using Laxatives. If you have prolonged or severe nausea/ vomiting/ or Diarrhea greater than 36 hours please contact the office. In trial these medication has been shown to have weight loss 21 % of body weight in 36 weeks. It is injected into subcutaneous fat weekly. Abdomen, thigh, or upper arm. You need to incorporate a HEALTHY DIET and INCREASED ACTIVITY to have the best outcome when using these medications. We do have registered dieticians that can help you in your journey if you would like to be referred to them please let me know. Our goal is to have your body get rid of fat vs muscle. If you are not eating a healthy number of calories, it has been shown to shut down your overall metabolism and cause you to stop losing weight and you will burn muscle instead of fat for fuel. It is also important that you incorporate activity including weight lifting and resistance training to help maintain your lean muscle mass. The calories you burn during the activity should be added to your daily intake. You will have follow ups with me once a month for at least the first 3 months. We will discuss how your progress is going. We will cover nutritional, behavioral, activity and lifestyle changes at those appointments. This is a journey that we will go through together. I look forward to helping you become a healthier version of the amazing person you already are. Remember it is a marathon and not a sprint. Gradual weight loss is healthy weight loss. [place] is 1-2 pounds per week for the average person. Rapid weight loss can also contribute to issues of gallstones and pancreatitis. I have sent the prescription for Prior Authorization. The prescription for MOUNJARO/ ZEPBOUND has 4 Pens already preloaded with medication needles. You will use one each week. You need to keep the pens refrigerated except for when you are using them. If you do not hear from your pharmacy 2 weeks, please let me know. The following items are OPTIONAL but can be helpful when starting your journey. 1. You can Download my fitness Pal on your phone, track your daily calorie intake. Set your intake to calories 9730-9480 a day. This can be helpful in the first few months to monitor what your intake is and also your macro's. [place] would be 40 % carbohydrates, 30% protien, and 30% fats. 2. You can purchase a scale that syncs to your smart phone. I recommend the Renpho scale you can purchase it on [employer] link: @https://[employer].Trunk Show/d/9 3nhwbH. 3. If you have a smart watch, fit bit, wear it daily to help track your steps and exercise. You can sync it to my fitness pal. When you are active, and earning more calories via exercise, remember to add those to your daily goal. 4. I encourage you to take your pictures and measurements. At least front, side and back views wearing shorts, bathing suits, and sports bra. It is always encouraging to see how far you have come even if the scale isn't moving as fast as you would like it. We call those non scale victories. 5. I encourage you to download the [employer] JAYANT to your smart phone or tablet. There are great resources for various types of activity for cardio, toning and weights. It also has recipes, tips on how to train, and a ton of workouts. The jayant is free or $25 a year for the PRO version. You can also screen share to your TV. Remember TIME+ hard work = Success Behavior modification, calorie deficit, proper nutrition, proper sleep routines, and physical activity are going to be the pillars of your success and help you maintain your goal. Pilar Maher [facility] Metabolic Health/ Obesity Medicine and Primary Care. (NON URGENT MATTERS) Office [phone] (URGENT MATTERS) YOUR PATIENT PORTAL IS THE BEST WAY TO COMMUNICATE FOR MEDICATION REFILLS, APPOINTMENT REQUEST OR GENERAL QUESTIONS. [email or web address] Not available 11/21/2024 09:20:13 2024 [id number] Thank you for visiting with me at [facility]. It has been my pleasure caring for you. If you have any further needs or questions, please reach out to us via the portal, or by calling the office at [phone]. Medication refills should be submitted via the patient portal. If you have a Non-Urgent need, you can text me at on my work cell at [phone]. I only use this phone during my business hours Wednesday 11-, thru 7-4. Your follow up has been scheduled. If it is virtual expect for a call to check you in and update your medical history with you 10-15 mins prior to your visit time. If you are more than 15 mins late for your appointment, you may be asked to reschedule to another date. Go to [employer] card to download your card. If you have coverage under your insurance for the medication it is $25 with the savings card. If you insurance does not cover the medications, the arndt pay cost is $550 per month with the card. With insurance coverage and a Prior authorization, you could pay as little as $25 for a 1-month, 2-month, or 3-month prescription fill of Zepbound. Month is defined as 28-days and up to 4 pens. Card savings are subject to a maximum monthly savings of up to $150 per 1-month prescription, $300 per 2-month prescription, or $450 per 3-month prescription fill and separate maximum annual savings of up to $1,800 per calendar year. Card may be used for a maximum of up to 13 prescription fills per calendar year. Weight loss Management MOUNJARO/ZEPBOUND Instructions: MOUNJARO is a medication used for Diabetes. The same medication ZEPBOUND used for weight loss. They are both the same GLP1/GIP medication tirzepatide. They are named depending on why it is being prescribed. CONGRATULATIONS!! ! On making the choice to change your life and become healthier version of YOU!! Please reach out to me if you have questions or concerns along the way. YOUR PATIENT PORTAL IS THE BEST WAY TO COMMUNICATE FOR MEDICATION REFILLS, APPOINTMENT REQUEST OR GENERAL QUESTIONS. My work cell is [phone], please use for NON-URGENT text, these are welcome at any time. I do not monitor that number daily and it can take up to a week for a reply. If you have an URGENT need, please call the office at [phone]. It is important that you use CONTROL while taking these medication. They have not been studied for safety in . You should be off the medications for 3 months prior to conceiving. This medicine will help decrease your appetite and cravings. But it is still important that you eat A MINIMUM OF 1200 calories a day to prevent your body from going into starvation mode and slowing your metabolism. It works by having a higher level of the GLP1 hormone in your system and that is the hormone that tells your brain that you are full and signals you to stop eating. The GIP hormone helps your insulin be more sensitive when you eat. The medication also works by slowing down your stomach emptying, and the activity of your GI tract. This sometimes can cause the most common side effects of NAUSEA and or CONSTIPATION. You have been given ZOFRAN as needed for the NAUSEA, and it is important to stay hydrated. 100 ounces of water daily is ideal. For the CONSTIPATION make sure you are staying hydrated, and you can use things like FIBER GUMMIES, MIRALAX, AND STOOL SOFTENERS as needed. If those are not helping, please reach out to me for further instructions. I do not want you using Laxatives. If you have prolonged or severe nausea/ vomiting/ or Diarrhea greater than 36 hours please contact the office. In trial these medication has been shown to have weight loss 21 % of body weight in 36 weeks. It is injected into subcutaneous fat weekly. Abdomen, thigh, or upper arm. You need to incorporate a HEALTHY DIET and INCREASED ACTIVITY to have the best outcome when using these medications. We do have registered dieticians that can help you in your journey if you would like to be referred to them please let me know. Our goal is to have your body get rid of fat vs muscle. If you are not eating a healthy number of calories, it has been shown to shut down your overall metabolism and cause you to stop losing weight and you will burn muscle instead of fat for fuel. It is also important that you incorporate activity including weight lifting and resistance training to help maintain your lean muscle mass. The calories you burn during the activity should be added to your daily intake. You will have follow ups with me once a month for at least the first 3 months. We will discuss how your progress is going. We will cover nutritional, behavioral, activity and lifestyle changes at those appointments. This is a journey that we will go through together. I look forward to helping you become a healthier version of the amazing person you already are. Remember it is a marathon and not a sprint. Gradual weight loss is healthy weight loss. [place] is 1-2 pounds per week for the average person. Rapid weight loss can also contribute to issues of gallstones and pancreatitis. I have sent the prescription for Prior Authorization. The prescription for MOUNJARO/ ZEPBOUND has 4 Pens already preloaded with medication needles. You will use one each week. You need to keep the pens refrigerated except for when you are using them. If you do not hear from your pharmacy 2 weeks, please let me know. The following items are OPTIONAL but can be helpful when starting your journey. 1. You can Download my fitness Pal on your phone, track your daily calorie intake. Set your intake to calories [id number] a day. This can be helpful in the first few months to monitor what your intake is and also your macro's. [place] would be 40 % carbohydrates, 30% protien, and 30% fats. 2. You can purchase a scale that syncs to your smart phone. I recommend the Renpho scale you can purchase it on Amazon link: @[email or web address] Systems.Trunk Show/d/9 [email or web address]. 3. If you have a smart watch, fit bit, wear it daily to help track your steps and exercise. You can sync it to my fitness pal. When you are active, and earning more calories via exercise, remember to add those to your daily goal. 4. I encourage you to take your pictures and measurements. At least front, side and back views wearing shorts, bathing suits, and sports bra. It is always encouraging to see how far you have come even if the scale isn't moving as fast as you would like it. We call those non scale victories. 5. I encourage you to download the Music Intelligence Solutions[employer] JAYANT to your smart phone or tablet. There are great resources for various types of activity for cardio, toning and weights. It also has recipes, tips on how to train, and a ton of workouts. The jayant is free or $25 a year for the PRO version. You can also screen share to your TV. Remember TIME+ hard work = Success Behavior modification, calorie deficit, proper nutrition, proper sleep routines, and physical activity are going to be the pillars of your success and help you maintain your goal. Pilar Maher [facility] Metabolic Health/ Obesity Medicine and Primary Care. (NON URGENT MATTERS) Office [phone] (URGENT MATTERS) YOUR PATIENT PORTAL IS THE BEST WAY TO COMMUNICATE FOR MEDICATION REFILLS, APPOINTMENT REQUEST OR GENERAL QUESTIONS. [email or web address] Not available 12/22/2024 16:00:12 02/28/2025 [id number] Thank you for visiting with me at [facility]. It has been my pleasure caring for you. If you have any further needs or questions, please reach out to us via our eBo[employer] JAYANT available on the jayant store and play store, the portal, or by calling the office at [phone]. Our BTIG JAYANT is live in [place]. Please download and enjoy all the great features it has to offer our patients. Medication refills should be submitted via the patient portal. If you have a Non-Urgent need, you can text me at on my work cell at [phone]. I only use this phone during my business hours 08-24, 04-20, 04-20, and 04-20. Your follow up has been scheduled. If you are not able to keep your scheduled appointment please call to reschedule as soon as possible. There is a $50 no show or cancellation fee if not cancelled within 24 of your appointment time. If you are unable to keep an in person appointment it can be changed to virtual without getting charged the fee. If you are more than 10 minutes late for your appointment, you may be asked to reschedule to another date. You can check our our Sparkcloud site at [email or web address] You can also follow us on Instragram for some great healthy recipe options @Guidance Software Go to Zepbound savings card to download your card. If you have coverage under your insurance for the medication it is $25 with the savings card. If you insurance does not cover the medications, the arndt pay cost is $550 per month with the card. With insurance coverage and a Prior authorization, you could pay as little as $25 for a 1-month, 2-month, or 3-month prescription fill of Zepbound. Month is defined as 28-days and up to 4 pens. Card savings are subject to a maximum monthly savings of up to $150 per 1-month prescription, $300 per 2-month prescription, or $450 per 3-month prescription fill and separate maximum annual savings of up to $1,800 per calendar year. Card may be used for a maximum of up to 13 prescription fills per calendar year. Weight loss Management MOUNJARO/ZEPBOUND Instructions: MOUNJARO is a medication used for Diabetes. The same medication ZEPBOUND used for weight loss. They are both the same GLP1/GIP medication tirzepatide. They are named depending on why it is being prescribed. CONGRATULATIONS!! ! On making the choice to change your life and become healthier version of YOU!! Please reach out to me if you have questions or concerns along the way. YOUR PATIENT PORTAL IS THE BEST WAY TO COMMUNICATE FOR MEDICATION REFILLS, APPOINTMENT REQUEST OR GENERAL QUESTIONS. My work cell is [phone], please use for NON-URGENT text, these are welcome at any time. I do not monitor that number daily and it can take up to a week for a reply. If you have an URGENT need, please call the office at [phone]. It is important that you use CONTROL while taking these medication. They have not been studied for safety in . You should be off the medications for 3 months prior to conceiving. This medicine will help decrease your appetite and cravings. But it is still important that you eat A MINIMUM OF 1200 calories a day to prevent your body from going into starvation mode and slowing your metabolism. It works by having a higher level of the GLP1 hormone in your system and that is the hormone that tells your brain that you are full and signals you to stop eating. The GIP hormone helps your insulin be more sensitive when you eat. The medication also works by slowing down your stomach emptying, and the activity of your GI tract. This sometimes can cause the most common side effects of NAUSEA and or CONSTIPATION. You have been given ZOFRAN as needed for the NAUSEA, and it is important to stay hydrated. 100 ounces of water daily is ideal. For the CONSTIPATION make sure you are staying hydrated, and you can use things like FIBER GUMMIES, MIRALAX, AND STOOL SOFTENERS as needed. If those are not helping, please reach out to me for further instructions. I do not want you using Laxatives. If you have prolonged or severe nausea/ vomiting/ or Diarrhea greater than 36 hours please contact the office. In trial these medication has been shown to have weight loss 21 % of body weight in 36 weeks. It is injected into subcutaneous fat weekly. Abdomen, thigh, or upper arm. You need to incorporate a HEALTHY DIET and INCREASED ACTIVITY to have the best outcome when using these medications. We do have registered dieticians that can help you in your journey if you would like to be referred to them please let me know. Our goal is to have your body get rid of fat vs muscle. If you are not eating a healthy number of calories, it has been shown to shut down your overall metabolism and cause you to stop losing weight and you will burn muscle instead of fat for fuel. It is also important that you incorporate activity including weight lifting and resistance training to help maintain your lean muscle mass. The calories you burn during the activity should be added to your daily intake. You will have follow ups with me once a month for at least the first 3 months. We will discuss how your progress is going. We will cover nutritional, behavioral, activity and lifestyle changes at those appointments. This is a journey that we will go through together. I look forward to helping you become a healthier version of the amazing person you already are. Remember it is a marathon and not a sprint. Gradual weight loss is healthy weight loss. [place] is 1-2 pounds per week for the average person. Rapid weight loss can also contribute to issues of gallstones and pancreatitis. I have sent the prescription for Prior Authorization. The prescription for MOUNJARO/ ZEPBOUND has 4 Pens already preloaded with medication needles. You will use one each week. You need to keep the pens refrigerated except for when you are using them. If you do not hear from your pharmacy 2 weeks, please let me know. The following items are OPTIONAL but can be helpful when starting your journey. 1. You can Download my fitness Pal on your phone, track your daily calorie intake. Set your intake to calories 5735-7294 a day. This can be helpful in the first few months to monitor what your intake is and also your macro's. [place] would be 40 % carbohydrates, 30% protein, and 30% fats. 2. You can purchase a scale that syncs to your smart phone. I recommend the Renpho scale you can purchase it on [employer] link: @https://Movile/d/9 3nhwbH. 3. If you have a smart watch, beSUCCESS, wear it daily to help track your steps and exercise. You can sync it to my fitness pal. When you are active, and earning more calories via exercise, remember to add those to your daily goal. 4. I encourage you to take your pictures and measurements. At least front, side and back views wearing shorts, bathing suits, and sports bra. It is always encouraging to see how far you have come even if the scale isn't moving as fast as you would like it. We call those non scale victories. 5. I encourage you to download the FitOn JAYANT to your smart phone or tablet. There are great resources for various types of activity for cardio, toning and weights. It also has recipes, tips on how to train, and a ton of workouts. The jayant is free or $25 a year for the PRO version. You can also screen share to your TV. Remember TIME+ hard work = Success Behavior modification, calorie deficit, proper nutrition, proper sleep routines, and physical activity are going to be the pillars of your success and help you maintain your goal. Pilar Maher [facility] Metabolic Health/ Obesity Medicine and Primary Care. (NON URGENT MATTERS) Office [phone] (URGENT MATTERS) YOUR PATIENT PORTAL IS THE BEST WAY TO COMMUNICATE FOR MEDICATION REFILLS, APPOINTMENT REQUEST OR GENERAL QUESTIONS. As we discussed I would like you to gain 5 to 6 pounds before restarting Zepbound and you can do 2.5 every 14 days and you are able to stretch out even longer if need be with your goal weight being 128-130 [email or web address] Not available 02/28/2025 12:15:31 Reason for Referral None Reported. Results Created Date Observation Date Name Description Value Unit Range Abnormal Flag Note LastModifiedBy Organization Detail LastModifiedTime 07/17/20 24 07/18/2024 IRON, TIBC AND DEWAYNE TIN PANEL iron, total 57 mcg/d L 40-190 normal Not Available [facility] [address] [place] [address], [address], 07/18/2024 05:24:47 07/17/20 24 07/18/2024 IRON, TIBC AND DEWAYNE TIN PANEL iron binding capacity 269 mcg/d L_(ca lc) 250-45 0 normal Not Available [facility] [address] [place] [address], [id number], 07/18/2024 05:24:47 07/17/20 24 07/18/2024 IRON, TIBC AND DEWAYNE TIN PANEL % saturation 21 %_(ca lc) 16-45 normal Not Available [facility] [employer] [facility] [address] [place] [address], [address], 07/18/2024 05:24:47 07/17/20 24 07/18/2024 IRON, TIBC AND DEWAYNE TIN PANEL ferritin 87 NG/mL 16-232 normal Not Available [facility] [address] [facility], [place], [address], 07/18/2024 05:24:47 07/17/20 24 07/18/2024 LIPID PANEL , STAND GIIG cholesterol, total 234 mg/dL <200 high Not Available [facility] [address] [place] [address], [place], [address], 07/18/2024 05:24:49 07/17/20 24 07/18/2024 LIPID PANEL , STAND GIGI HDL cholesterol 66 mg/dL > or = 50 normal Not Available [facility] - [address], [place], [address], 07/18/2024 05:24:49 07/17/20 24 07/18/2024 LIPID PANEL , STAND GIGI triglyceride s 77 mg/dL <150 normal Not Available [facility] [address], [place], [address], 07/18/2024 05:24:49 07/17/20 24 07/18/2024 LIPID PANEL , STAND GIGI LDL-choleste rol 150 mg/dL _(karlos c) high Refer ence range : <100 Rose able range <100 mg/dL for prima ry preve ntion ; <70 mg/dL for patie nts with CHD or diabe tic patie nts with > or = 2 CHD risk facto rs. LDL-C is now calcu lated using the Genie white-Hop kins calcu ella n, which is a valid ated novel metho d elizabethi doc guillaume accur acy than the Fried rc equat ion in the estim ation of LDL-C . Genie white SS et al. VINCENT. 2013; 310(1 9): 2061- 2068 (http ://ed violettaati on.Qu Shane pastranaLIFESYNC HOLDINGSs. com/f aq/FA Q164) Not Available [facility] [address] [place] [address], [place], [address], 07/18/2024 05:24:49 07/17/20 24 07/18/2024 LIPID PANEL , STAND GIGI chol/HDLC ratio 3.5 (calc ) <5.0 normal Not Available [facility] [address] [place], [place] [address], [place], [address], 07/18/2024 05:24:49 07/17/20 24 07/18/2024 LIPID PANEL , STAND GIGI non HDL cholesterol 168 mg/dL _(karlos c) <130 high For patie nts with diabe octaviano plus 1 major ASCVD risk facto r, treat ing to a non-H DL-C goal of <100 mg/dL (LDL- C of <70 mg/dL ) is consi fernanda a tejal barreto optio n. Not Available [facility] [address] [place] [address], [place], [address], 07/18/2024 05:24:49 07/17/20 24 07/18/2024 MAGNE SIUM magnesium 2.1 mg/dL 1.5-2. 5 normal Not Available [facility] [address] [place], [place] [address], [place], [address], 07/18/2024 05:24:49 07/17/20 24 07/18/2024 COMPR EHENS JOSE METAB OLIC PANEL glucose 82 mg/dL 65-99 normal Fasti ng refer ence inter julio cesar Not Available [address], [address], 07/18/2024 05:24:50 07/17/20 24 07/18/2024 COMPR EHENS JOSE METAB OLIC PANEL urea nitrogen (BUN) 8 mg/dL 7-25 normal Not Available [facility] [address] [place] [address], [address], 07/18/2024 05:24:50 07/17/20 24 07/18/2024 COMPR EHENS JOSE METAB OLIC PANEL creatinine 0.74 mg/dL 0.50-0 .99 normal Not Available [address], [address], 07/18/2024 05:24:50 07/17/20 24 07/18/2024 COMPR EHENS JOSE METAB OLIC PANEL eGFR 102 mL/mi n/1.7 3m2 > or = 60 normal Not Available [address] [place], [address], 07/18/2024 05:24:50 07/17/20 24 07/18/2024 COMPR EHENS JOSE METAB OLIC PANEL BUN/creatini ne ratio SEE NOTE: (calc ) 6-22 Not Repor emelyn: BUN and Creat inine are withi n refer ence range . Not Available [facility] [address] [place], [address], 07/18/2024 05:24:50 07/17/20 24 07/18/2024 COMPR EHENS JOSE METAB OLIC PANEL sodium 138 mmol/ L 135-14 6 normal Not Available [address] [place], [address], 07/18/2024 05:24:50 07/17/20 24 07/18/2024 COMPR EHENS JOSE METAB OLIC PANEL potassium 4.5 mmol/ L 3.5-5. 3 normal Not Available [facility] [address] [place], [place] [address], [address], 07/18/2024 05:24:50 07/17/20 24 07/18/2024 COMPR EHENS JOSE METAB OLIC PANEL chloride 103 mmol/ L 98-110 normal Not Available [facility] [address] [place], [place] [address], [address], 07/18/2024 05:24:50 07/17/20 24 07/18/2024 COMPR EHENS JOSE METAB OLIC PANEL carbon dioxide 22 mmol/ L 20-32 normal Not Available [address] [place], [address], 07/18/2024 05:24:50 07/17/20 24 07/18/2024 COMPR EHENS JOSE METAB OLIC PANEL calcium 9.1 mg/dL 8.6-10 .2 normal Not Available [facility] [address] [place] [address] [place], [address], 07/18/2024 05:24:50 07/17/20 24 07/18/2024 COMPR EHENS JOSE METAB OLIC PANEL protein, total 6.8 g/dL 6.1-8. 1 normal Not Available [address] [place], [address], 07/18/2024 05:24:50 07/17/20 24 07/18/2024 COMPR EHENS JOSE METAB OLIC PANEL albumin 4.2 g/dL 3.6-5. 1 normal Not Available [address] [place], [address], 07/18/2024 05:24:50 07/17/20 24 07/18/2024 COMPR EHENS JOSE METAB OLIC PANEL globulin 2.6 g/dL_ (calc ) 1.9-3. 7 normal Not Available [facility] [address] [place], [place] [address], [address], 07/18/2024 05:24:50 07/17/20 24 07/18/2024 COMPR EHENS JOSE METAB OLIC PANEL albumin/glob ulin ratio 1.6 (calc ) 1.0-2. 5 normal Not Available [facility] [address] [place] [address], [address], 07/18/2024 05:24:50 07/17/20 24 07/18/2024 COMPR EHENS JOSE METAB OLIC PANEL bilirubin, total 0.6 mg/dL 0.2-1. 2 normal Not Available [facility] [address] [place] [address], [address], 07/18/2024 05:24:50 07/17/20 24 07/18/2024 COMPR EHENS JOSE METAB OLIC PANEL alkaline phosphatase 44 U/L 31-125 normal Not Available [facility] [employer] [facility] [address] [place] [address], [address], 07/18/2024 05:24:50 07/17/20 24 07/18/2024 COMPR EHENS JOSE METAB OLIC PANEL AST 20 U/L 10-30 normal Not Available [address], [address], 07/18/2024 05:24:50 07/17/20 24 07/18/2024 COMPR EHENS JOSE METAB OLIC PANEL ALT 15 U/L 6-29 normal Not Available [address], [address], 07/18/2024 05:24:50 07/17/20 24 07/18/2024 CBC (INCL UDES DIFF/ PLT) white blood cell count 5.4 thous and/u L 3.8-10 .8 normal Not Available [address], [address], 07/18/2024 05:24:50 07/17/20 24 07/18/2024 CBC (INCL UDES DIFF/ PLT) red blood cell count 4.30 vj on/uL 3.80-5 .10 normal Not Available [address], [address], 07/18/2024 05:24:50 07/17/20 24 07/18/2024 CBC (INCL UDES DIFF/ PLT) hemoglobin 13.9 g/dL 11.7-1 5.5 normal Not Available [address], [address], 07/18/2024 05:24:50 07/17/20 24 07/18/2024 CBC (INCL UDES DIFF/ PLT) hematocrit 41.6 % 35.0-4 5.0 normal Not Available [facility] [address] [place], [address], 07/18/2024 05:24:50 07/17/20 24 07/18/2024 CBC (INCL UDES DIFF/ PLT) MCV 96.7 fL 80.0-1 00.0 normal Not Available [facility] [address] [place], [address], 07/18/2024 05:24:50 07/17/20 24 07/18/2024 CBC (INCL UDES DIFF/ PLT) MCH 32.3 pg 27.0-3 3.0 normal Not Available [facility] [address] [place], [address], 07/18/2024 05:24:50 07/17/20 24 07/18/2024 CBC (INCL UDES DIFF/ PLT) MCHC 33.4 g/dL 32.0-3 6.0 normal For adult s, a sligh t decre ase in the calcu lated MCHC value (in the range of 30 to 32 g/dL) is most likel y not clini kimberly signi oly t; queenie er, it shoul d be inter prete d with cauti on in corre lat n with other red cell rita eters and the patie nt's clini karlos condi tion. Not Available [facility] [address] [place], [address], 07/18/2024 05:24:50 07/17/20 24 07/18/2024 CBC (INCL UDES DIFF/ PLT) RDW 11.6 % 11.0-1 5.0 normal Not Available [facility] [address] [place], [address], 07/18/2024 05:24:50 07/17/20 24 07/18/2024 CBC (INCL UDES DIFF/ PLT) platelet count 352 thous and/u L 140-40 0 normal Not Available [facility] [address] [place], [address], 07/18/2024 05:24:50 07/17/20 24 07/18/2024 CBC (INCL UDES DIFF/ PLT) MPV 10.8 fL 7.5-12 .5 normal Not Available [facility] [address], [address], 07/18/2024 05:24:50 07/17/20 24 07/18/2024 CBC (INCL UDES DIFF/ PLT) absolute neutrophils 3235 cells /uL 1500-7 800 normal Not Available [facility] [address], [address], 07/18/2024 05:24:50 07/17/20 24 07/18/2024 CBC (INCL UDES DIFF/ PLT) absolute lymphocytes 1631 cells /uL 850-39 00 normal Not Available [facility] [address], [address], 07/18/2024 05:24:50 07/17/20 24 07/18/2024 CBC (INCL UDES DIFF/ PLT) absolute monocytes 443 cells /uL 200-95 0 normal Not Available [facility] [address], [address], 07/18/2024 05:24:50 07/17/20 24 07/18/2024 CBC (INCL UDES DIFF/ PLT) absolute eosinophils 32 cells /uL 15-500 normal Not Available [facility] [address], [address], 07/18/2024 05:24:50 07/17/20 24 07/18/2024 CBC (INCL UDES DIFF/ PLT) absolute basophils 59 cells /uL 0-200 normal Not Available [facility] [address], [address], 07/18/2024 05:24:50 07/17/20 24 07/18/2024 CBC (INCL UDES DIFF/ PLT) neutrophils 59.9 % normal Not Available [facility] - [address], [address], 07/18/2024 05:24:50 07/17/20 24 07/18/2024 CBC (INCL UDES DIFF/ PLT) lymphocytes 30.2 % normal Not Available [facility] - [address], [address], 07/18/2024 05:24:50 07/17/20 24 07/18/2024 CBC (INCL UDES DIFF/ PLT) monocytes 8.2 % normal Not Available [facility] - [address], [address], 07/18/2024 05:24:50 07/17/20 24 07/18/2024 CBC (INCL UDES DIFF/ PLT) eosinophils 0.6 % normal Not Available [facility] - [address], [address], 07/18/2024 05:24:50 07/17/20 24 07/18/2024 CBC (INCL UDES DIFF/ PLT) basophils 1.1 % normal Not Available [facility] - [address], [address], 07/18/2024 05:24:50 07/17/20 24 07/18/2024 VITAM IN B12/F OLATE , SERUM PANEL vitamin B12 346 pg/mL 200-11 00 normal Pleas e Note: Altho ugh the refer ence range for vitam in B12 is 200-1 100 pg/mL , it has been repor emelyn that betwe en 5 and 10% of patie nts with value s betwe en 200 and 400 pg/mL may exper ience neuro psych iatri c and hemat ologi c abnor malit ies due to occul t B12 defic iency ; less than 1% of patie nts with value s above 400 pg/mL will have sympt oms. Not Available [facility] - [address], [address], 07/18/2024 05:24:51 07/17/20 24 07/18/2024 VITAM IN B12/F OLATE , SERUM PANEL folate, serum 10.6 NG/mL normal Refer ence Range Low: <3.4 Borde rline : 3.4-5 .4 Mulu l: >5.4 Not Available [address], [address], 07/18/2024 05:24:51 10/30/19 25 10/31/2024 URINA LYSIS , COMPL ETE W/REF RADHA TO CULTU RE color RED yellow abnormal Not Available [address], [address], 10/31/2024 18:56:13 10/30/19 25 10/31/2024 URINA LYSIS , COMPL ETE W/REF RADHA TO CULTU RE appearance TURBID clear abnormal Not Available [address], [address], 10/31/2024 18:56:13 10/30/19 25 10/31/2024 URINA LYSIS , COMPL ETE W/REF RADHA TO CULTU RE specific gravity TNP TEST NOT PERFO RMED Unabl e to perfo rm testi ng due to color inter feren ce. Not Available [address], [address], 10/31/2024 18:56:13 10/30/19 25 10/31/2024 URINA LYSIS , COMPL ETE W/REF RADHA TO CULTU RE WBC 20-40 /hpf < or = 5 abnormal Not Available [address], [address], 10/31/2024 18:56:13 10/30/19 25 10/31/2024 URINA LYSIS , COMPL ETE W/REF RADHA TO CULTU RE RBC NONE SEEN /hpf < or = 2 normal Not Available [address] [place], [address], 10/31/2024 18:56:13 10/30/19 25 10/31/2024 URINA LYSIS , COMPL ETE W/REF RADHA TO CULTU RE squamous epithelial cells NONE SEEN /hpf < or = 5 normal Not Available [facility] - [address], [address], 10/31/2024 18:56:13 10/30/19 25 10/31/2024 URINA LYSIS , COMPL ETE W/REF RADHA TO CULTU RE bacteria FEW /hpf none seen abnormal Not Available [facility] - [address], [address], 10/31/2024 18:56:13 10/30/19 25 10/31/2024 URINA LYSIS , COMPL ETE W/REF RADHA TO CULTU RE hyaline cast NONE SEEN /lpf none seen normal Not Available [facility] - [address], [address], 10/31/2024 18:56:13 10/30/19 25 10/31/2024 URINA LYSIS , COMPL ETE W/REF RADHA TO CULTU RE note This urine was rajinder zed for the prese nce of WBC, RBC, bacte shivani, casts , and other forme d eleme nts. Only those eleme nts seen were repor emelyn. Not Available [facility] - [address], [address], 10/31/2024 18:56:13 10/30/19 25 10/31/2024 REFLE XIVE URINE CULTU RE reflexive urine culture CULTU RE INDIC ATED - RESUL TS TO FOLLO W Not Available [facility] - [address], [address], 10/31/2024 18:56:15 10/30/19 25 10/31/2024 CULTU RE, URINE , ROUTI NE culture, urine, routine SEE NOTE CULTU RE, URINE , ROUTI NE Micro Numbe r: [id number] Test Statu s: Final Speci men Sourc e: Urine Speci men Quali ty: Adequ ate Resul t: Mixed genit al alexandro isola emelyn. These super ficia l bacte shivani are not indic ative of a urina ry tract infec tion. No furth er organ ism ident ifica tion is warra nted on this speci men. If clini kimberly indic ated, recol lect clean -catc h, mid-s tream urine and trans marcos immed iatel y to Urine Cultu re Trans port Tube. Not Available [facility] [address] [place] [address], [address], 10/31/2024 18:56:15 11/23/19 25 11/24/2024 LIPID PANEL , STAND GIGI cholesterol, total 190 mg/dL <200 normal Not Available [facility] [address], [address], 11/24/2024 04:21:47 11/23/19 25 11/24/2024 LIPID PANEL , STAND GIGI HDL cholesterol 61 mg/dL > or = 50 normal Not Available [facility] [address] [place] [address], [address], 11/24/2024 04:21:47 11/23/19 25 11/24/2024 LIPID PANEL , STAND GIGI triglyceride s 77 mg/dL <150 normal Not Available [facility] [address] [place] [address], [address], 11/24/2024 04:21:47 11/23/19 25 11/24/2024 LIPID PANEL , STAND GIGI LDL-choleste rol 112 mg/dL _(karlos c) high Refer ence range : <100 Rose able range <100 mg/dL for prima ry preve ntion ; <70 mg/dL for patie nts with CHD or diabe tic patie nts with > or = 2 CHD risk facto rs. LDL-C is now calcu lated using the [facility] kins calcu latio n, which is a valid ated novel metho d elizabethi doc mark r accur acy than the Fried [employer] equat ion in the estim ation of LDL-C . Genie n SS et al. VINCENT. 2013; 310(1 9): 2061- 2068 (http ://ed ucati on.Qu Shane zeinaMuseAmi. Neurelis/f aq/FA Q164) Not Available [facility] [address] [place] [address], [place], [address], 11/24/2024 04:21:47 11/23/19 25 11/24/2024 LIPID PANEL , STAND GIGI chol/HDLC ratio 3.1 (calc ) <5.0 normal Not Available [facility] [address] [place] [address], [place], [address], 11/24/2024 04:21:47 11/23/19 25 11/24/2024 LIPID PANEL , STAND GIGI non HDL cholesterol 129 mg/dL _(karlos c) <130 normal For patie nts with diabe octaviano plus 1 major ASCVD risk facto r, treat ing to a non-H DL-C goal of <100 mg/dL (LDL- C of <70 mg/dL ) is nelly davison n. Not Available [facility] [address] [facility], [place], [address], 11/24/2024 04:21:47 11/23/19 25 11/24/2024 CBC (INCL UDES DIFF/ PLT) white blood cell count 5.3 thous and/u L 3.8-10 .8 normal Not Available [facility] [address] [place] [address], [place], [address], 11/24/2024 04:21:49 11/23/19 25 11/24/2024 CBC (INCL UDES DIFF/ PLT) red blood cell count 4.51 vj on/uL 3.80-5 .10 normal Not Available [facility] [address] [facility], [place], [address], 11/24/2024 04:21:49 11/23/19 25 11/24/2024 CBC (INCL UDES DIFF/ PLT) hemoglobin 13.5 g/dL 11.7-1 5.5 normal Not Available [facility] [id number] [facility] [place], [address], 11/24/2024 04:21:49 11/23/1911/24/2024 CBC (INCL UDES DIFF/ PLT) hematocrit 42.2 % 35.0-4 5.0 normal Not Available [facility] [address], [place], [address], 11/24/2024 04:21:49 11/23/1911/24/2024 CBC (INCL UDES DIFF/ PLT) MCV 93.6 fL 80.0-1 00.0 normal Not Available [facility] [address] [place], [address], 11/24/2024 04:21:49 11/23/1911/24/2024 CBC (INCL UDES DIFF/ PLT) MCH 29.9 pg 27.0-3 3.0 normal Not Available [facility] [address] [place], [address], 11/24/2024 04:21:49 11/23/1911/24/2024 CBC (INCL UDES DIFF/ PLT) MCHC 32.0 g/dL 32.0-3 6.0 normal For adult s, a sligh t decre ase in the calcu lated MCHC value (in the range of 30 to 32 g/dL) is most likel y not clini kimberly munozi oly t; queenie er, it shoul d be inter prete d with cauti on in corre latio n with other red cell rita eters and the patie nt's clini karlos condi tion. Not Available [facility] - [address] [place], [address], 11/24/2024 04:21:49 11/23/19 25 11/24/2024 CBC (INCL UDES DIFF/ PLT) RDW 12.0 % 11.0-1 5.0 normal Not Available [facility] [address], [address], 11/24/2024 04:21:49 11/23/19 25 11/24/2024 CBC (INCL UDES DIFF/ PLT) platelet count 371 thous and/u L 140-40 0 normal Not Available [facility] [address], [address], 11/24/2024 04:21:49 11/23/19 25 11/24/2024 CBC (INCL UDES DIFF/ PLT) MPV 10.3 fL 7.5-12 .5 normal Not Available [facility] [address], [address], 11/24/2024 04:21:49 11/23/19 25 11/24/2024 CBC (INCL UDES DIFF/ PLT) absolute neutrophils 3016 cells /uL 1500-7 800 normal Not Available [address], [address], 11/24/2024 04:21:49 11/23/19 25 11/24/2024 CBC (INCL UDES DIFF/ PLT) absolute lymphocytes 1776 cells /uL 850-39 00 normal Not Available [address], [address], 11/24/2024 04:21:49 11/23/19 25 11/24/2024 CBC (INCL UDES DIFF/ PLT) absolute monocytes 429 cells /uL 200-95 0 normal Not Available [address], [address], 11/24/2024 04:21:49 11/23/19 25 11/24/2024 CBC (INCL UDES DIFF/ PLT) absolute eosinophils 32 cells /uL 15-500 normal Not Available [facility] [address] [place], [address], 11/24/2024 04:21:49 11/23/19 25 11/24/2024 CBC (INCL UDES DIFF/ PLT) absolute basophils 48 cells /uL 0-200 normal Not Available [facility] - [address], [address], 11/24/2024 04:21:49 11/23/19 25 11/24/2024 CBC (INCL UDES DIFF/ PLT) neutrophils 56.9 % normal Not Available [facility] - [address], [address], 11/24/2024 04:21:49 11/23/19 25 11/24/2024 CBC (INCL UDES DIFF/ PLT) lymphocytes 33.5 % normal Not Available [facility] - [address], [address], 11/24/2024 04:21:49 11/23/19 25 11/24/2024 CBC (INCL UDES DIFF/ PLT) monocytes 8.1 % normal Not Available [facility] - [address], [address], 11/24/2024 04:21:49 11/23/19 25 11/24/2024 CBC (INCL UDES DIFF/ PLT) eosinophils 0.6 % normal Not Available [facility] - [address], [address], 11/24/2024 04:21:49 11/23/19 25 11/24/2024 CBC (INCL UDES DIFF/ PLT) basophils 0.9 % normal Not Available [facility] - [address], [address], 11/24/2024 04:21:49 09/04/20 24 08/24/2024 MAMMO , sebastiane chuck, bilat eral, w/ CAD No observ ation record ed. [id number] [facility], [place], [address], 09/04/2024 17:25:07 Result Notes None recorded. Problems Name Problem SNOMED Code Status Onset Date Resolution Date Notes Provider Name and Address Organization Details Recorded Time Hypercho lesterol emia 54384436 Active 2022 ED Kam [address], [place], [address] , [employer] 4 08:11:28 Serum folate below referenc e range 291872627 Active 2022 ED Kam [address], [address], [place], [address] , Beem 4 08:14:15 Folic acid deficien cy 182743978 Active 2022 ED Kam [address], [address], [place], [address] , Beem 4 08:11:21 Macrocyt osis - no anemia 543157348 Active 2022 ED Kam [address], [address], [place], [address] , Beem 4 08:13:23 Finding of body mass index 840078781 Active 2022 ED Kam [address], [address], [place], [address] , Be[employer] 4 08:11:19 History of sleeve gastrect lucero 61887061393 9107 Active 2010 ED Kam [address], [address], [place], [address] , Beem 4 08:11:24 Hyperten sive disorder 26940754 Completed 202208/28/2024 ED Kam [address], [address], [place], [address] , Beem 4 08:13:10 Rosajustina 541684024 Active 2022 ED Kam [address], [place], [address] , Beem 4 08:11:39 Nausea 573259684 Active 2022 ED Kam [address] [address], [place], [address] , Beem 4 16:50:28 Family history of malignan t neoplasm of breast in first degree relative 592871698 Active 2022 ED Kam [address] [address], [place], [address] , Beem 4 08:11:17 Serum vitamin B12 borderli ne low 533762206 Active 2022 ED Kam [address] [address], [place], [address] , [employer] 4 08:11:37 Anxiety 70366830 Active 2022 no longer on meds, worked through things with Psycholo gist ED Kam [address] [address], [place], [address] , Beem 4 08:11:00 COVID-19 068993716 Completed 202208/28/2024 ED Kam [address] [address], [place], [address] , Beem 4 08:12:50 Weight loss 35937718 Active 2022 ED Kam [address] [address], [place], [address] , Beem 4 16:50:29 Essentia l hyperten rigoberto 92394127 Completed 202308/28/2024 ED Kam [address], [place], [address] , Beem 4 08:12:56 Increase d body mass index 59194186 Active 2023 ED Kam [address], [place], [address] , [place] [employer] 4 11:14:10 Attentio n deficit hyperact ivity disorder 828770955 Active 2024 started on guanfaci ne sees psych ED Kam [address], [address], [place], [address] , [employer] 5 20:46:32 Pure hypercho lesterol emia 226143898 Active 2023 ED Kam [address], [address], [place], [address] , [employer]em 4 08:11:33 Acute urinary tract infectio n 920658179 Active 2024 ED Kam [address], [place], [address] , [employer] 5 09:35:07 History of depressi on 561462495 Active 2023 ED Kam [address], [address], [place], [address] , [employer] 4 08:10:49 History of alcohol abuse 918377407 Active 2023 ED Kam [address], [place], [address] , [employer] 4 08:13:06 Insomnia 362640671 Active 2023 ED Kam [address], [place], [address] , [employer] 4 08:14:55 Inconclu sive mammogra phy finding 33071800337 9104 Active 2023 ED Kam [address], [address], [place], [address] , [employer] 4 14:50:13 Dysuria- frequenc y syndrome 4995708 Active 2024 ED Kam [address], [place], [address] , [employer] 5 12:06:24 Essentia l hyperten rigoberto 85251009 Active 2023 Added via [employer] Jayant Not Available [employer] 5 16:13:34 Fatigue 92040057 Active 2024 ED Kam [address], [place], [address] , [employer] 5 11:21:05 Notes:Some problems listed i n Document: #[id number] could not be added to this patient's chart. Please review this document and add these problems to the patient's chart manually as needed. Problem Notes None recorded. Procedures Surgical History Date Name Laterality Status Provider Name and Address Organization Details Recorded Time 12/19/19 Telehealth Follow-up Visit completed ED Kam [address], [place], [address], Beem 12/17/2024 20:22:39 11/18/19 25 Date of Last Mammogram completed Aida Jaimes Soceaniq 02/28/2025 10:46:28 Hysterectomy completed ED Kam [address], [address], [place], [address], Beem 08/23/2024 15:59:56 laparoscopic sleeve gastrectomy completed ED Kam [address], [place], [address], Beem 08/23/2024 16:00:04 Breast augmentation w/implt completed ED Kam [address], [place], [address], Soceaniq 08/23/2024 16:00:41 abdominoplasty completed ED Kam [address] [facility], [place], [address], Soceaniq 08/23/2024 16:00:49 Imaging Results None recorded. Procedure Notes None recorded. Medical Equipment None Reported. Allergies Allergen ID Allergen Name Allergen Category Reaction Reaction Severity Criticality Documentation Date Start Date Code Code System Note Provider Name and Address Organization Details Recorded Time 2945 Substance with sulfonami de structure and antibacte rial mechanism of action (substanc e) medicatio n rash mild Not available 02/22/2024 [id number] SNOMED ED Kam [address] [facility] [facility], [place], [address], Soceaniq 16:50:26 Medications Name Sig Start Date Stop Date Status Note LastModified by Organization Details LastModified Time buspirone 5 mg tablet 12/02 completed Not Available Not Available Not Available Bromfed DM 2 mg-30 mg-10 mg/5 mL oral syrup Take 10 mL every 4-6 hours by oral route as needed. 02/23 completed Not Available Not Available Not Available prednison e 10 mg tablet TAKE FOUR (4) TABLETS BY MOUTH IN THE MORNING WITH FOOD FOR 2 WEEKS, THEN 2 TABLETS IN THE MORNING WITH FOOD FOR 2 WEEKS, THEN 1 TABLET IN 06/18 completed Not Available Not Available Not Available doxycycli ne hyclate 100 mg capsule TAKE 1 CAPSULE BY MOUTH TWICE DAILY WITH FOOD AND WATER 12/02 completed Not Available Not Available Not Available clindamyc in HCl 300 mg capsule TAKE ONE (1) CAPSULE( S) BY MOUTH FOUR TIMES A DAY. 02/07 completed Not Available Not Available Not Available atorvasta tin 10 mg tablet TAKE ONE (1) TABLET(S ) BY MOUTH ONCE A DAY AT BEDTIME. 07/15 completed Not Available Not Available Not Available azithromy bettie 250 mg tablet TAKE 2 TABLETS BY MOUTH ON DAY 1, THEN TAKE 1 TABLET BY MOUTH DAILY FOR 4 DAYS 02/23 completed Not Available Not Available Not Available benzonata te 200 mg capsule TAKE 1 CAPSULE BY MOUTH THREE TIMES DAILY FOR 10 DAYS NEEDED 12/02 completed Not Available Not Available Not Available promethaz ine 25 [address] rectal supposito ry PLACE 1 SUPPOSIT ORY RECTALLY EVERY 6 HOURS NEEDED FOR NAUSEA. 11/21 completed Not Available Not Available Not Available naltrexon e 50 mg tablet TAKE ONE (1) TABLET(S ) BY MOUTH ONCE A DAY. 02/28 completed Not Available Not Available Not Available ondansetr on HCl 4 mg tablet TAKE ONE (1) TABLET(S ) BY MOUTH EVERY FOUR TO SIX HOURS NEEDED FOR NAUSEA. 02/07 completed Not Available Not Available Not Available prednison e 20 mg tablet 12/02 completed Not Available Not Available Not Available sertralin e 100 mg tablet TAKE ONE (1) TABLET(S ) BY MOUTH ONCE A DAY. 02/23 completed Not Available Not Available Not Available prednison e 5 mg tablet TAKE ONE (1) TABLET(S ) BY MOUTH ONCE A DAY FOR 14 DAYS, AND THEN TAKE ONE-HALF (1/2) TABLET BY MOUTH ONCE A DAY FOR 14 DAYS. TAKE WITH FOOD 06/18 completed Not Available Not Available Not Available phentermi ne 37.5 mg tablet TAKE 1 TABLET BY MOUTH EVERY DAY IN THE MORNING 12/02 completed Not Available Not Available Not Available Tamiflu 75 mg capsule Take 1 capsule twice a day by oral route for 5 days. 02/23 completed Not Available Not Available Not Available alprazola m 0.5 mg tablet TAKE ONE (1) TABLET(S ) BY MOUTH TWICE A DAY NEEDED. 02/23 completed pt weaned off it herself Not Available Not Available Not Available prednisol one acetate 1 % eye drops,gerri lewon SHAKE WELL INSTILL 1 DROP FOUR TIMES DAILY IN LEFT EYE 08/23 completed Not Available Not Available Not Available triamcino lone acetonide 0.025 % topical cream APPLY 1 TO 2 TIMES DAILY PREFERAB LY SOON AFTER BATHING 12/02 completed Not Available Not Available Not Available hydrocodo ne 7.5 mg-acetam inophen 325 mg tablet TAKE ONE (1) TABLET(S ) BY MOUTH EVERY FOUR TO SIX HOURS NEEDED FOR PAIN. 02/23 completed Not Available Not Available Not Available cephalexi n 500 mg capsule TAKE ONE (1) CAPSULE( S) BY MOUTH FOUR TIMES A DAY. 02/23 completed Not Available Not Available Not Available cyanocoba anastacio (vit B-12) 1,000 mcg/mL injection solution Inject 1000 microgra ms by subcutan eous route as directed . 02/23 completed pt uncomfor table giving it to herself Not Available Not Available Not Available lisinopri l 10 mg tablet Take 1 tablet every day by oral route for 90 days. 08/23 completed Not Available Not Available Not Available zafirluka st 20 mg tablet TAKE ONE (1) TABLET(S ) BY MOUTH TWICE A DAY. 02/23 completed Not Available Not Available Not Available docusate sodium 100 mg capsule TAKE ONE (1) CAPSULE( S) BY MOUTH TWICE A DAY. 02/23 completed Not Available Not Available Not Available gabapenti n 300 mg capsule TAKE ONE (1) CAPSULE( S) BY MOUTH TWICE A DAY. 02/23 completed Not Available Not Available Not Available omeprazol e 20 mg capsule,d elayed release TAKE ONE (1) TABLET(S ) BY MOUTH ONCE A DAY. 06/18 completed Not Available Not Available Not Available folic acid 1 mg tablet TAKE ONE (1) TABLET(S ) BY MOUTH ONCE A DAY WITH MEALS. 02/23 completed Not Available Not Available Not Available hydrocort isone 2.5 % topical cream APPLY TOPICALL Y TO THE AFFECTED AREA TWICE DAILY. MAX 2 WEEKS PER MONTH. MIX WITH KETOCONA ZOLE CREAM 12/02 completed Not Available Not Available Not Available hydroxyzi ne HCl 25 mg tablet TAKE ONE (1) TABLET(S ) BY MOUTH ONCE A DAY NEEDED. active Not Available Not Available No t Available codeine 10 mg-guaife nesin 100 mg/5 mL oral liquid TAKE 10 ML BY MOUTH EVERY NIGHT AT BEDTIME FOR 10 DAYS 12/02 completed Not Available Not Available Not Available ergocalci ferol (vitamin D2) 1,250 mcg (50,000 unit) capsule TAKE ONE (1) CAPSULE( S) BY MOUTH EVERY WEEK. 06/18 completed Not Available Not Available Not Available albuterol sulfate HFA 90 mcg/actua tion aerosol inhaler Inhale 2 puffs every 4 hours by inhalati on route as needed for 10 days. 02/23 completed Not Available Not Available Not Available ketoconaz ole 2 % topical cream APPLY TO RASH ON THE AXILLA TWICE DAILY FOR 1 WEEK 12/02 completed Not Available Not Available Not Available ondansetr on 4 mg disintegr ating tablet DISSOLVE ONE (1) TABLET(S ) UNDER TONGUE EVERY FOUR TO SIX HOURS NEEDED FOR NAUSEA AND VOMITING . active Not Available Not Available No t Available sertralin e 50 mg tablet TAKE 1/2 TAB DAILY FOR FIRST 7 DAYS THEN ONE (1) TABLET(S ) BY MOUTH ONCE A DAY FOR 90 DAYS. 07/23 completed Not Available Not Available Not Available diazepam 5 mg tablet TAKE ONE (1) TABLET(S ) BY MOUTH THREE TIMES A DAY NEEDED. 02/23 completed Not Available Not Available Not Available amoxicill in 875 mg-potass ium clavulana te 125 mg tablet TAKE 1 TABLET BY MOUTH EVERY 12 HOURS WITH MEALS FOR 7 DAYS 12/02 completed Not Available Not Available Not Available enoxapari n 40 mg/0.4 mL subcutane ous syringe STARTING 24 HOURS AFTER OPERATIO N, INJECT ONE (1) SYRINGE SUBCUTAN EOUSLY ONCE A DAY FOR 8 DAYS. 02/07 completed Not Available Not Available Not Available bupropion HCl SR 200 mg tablet,12 hr sustained -release TAKE ONE (1) TABLET(S ) BY MOUTH ONCE A DAY IN THE MORNING. 02/28 completed Not Available Not Available Not Available moxifloxa bettie 0.5 % eye drops INSTILL ONE DROP INTO LEFT EYE THREE TIMES A DAY. 08/23 completed Not Available Not Available Not Available rosuvasta tin 5 mg tablet TAKE ONE (1) TABLET BY MOUTH ONCE NIGHTLY AT BEDTIME. active Not Available Not Available No t Available bupropion HCl XL 300 mg 24 hr tablet, extended release TAKE ONE (1) TABLET(S ) BY MOUTH EVERY MORNING. 02/28 completed Not Available Not Available Not Available bupropion HCl XL 150 mg 24 hr tablet, extended release TAKE 1 TABLET BY MOUTH DAILY IN THE MORNING 08/23 completed Not Available Not Available Not Available clobetaso l 0.05 % shampoo APPLY A THIN LAYER BY TOPICAL ROUTE ONCE DAILY TO DRY SCALP LEAVE IN PLACE 15 MIN. THEN LATHER AND RINSE DO TWICE WEEKLY. 02/23 completed Not Available Not Available Not Available nitrofura ntoin monohydra te/macroc rystals 100 mg capsule TAKE ONE (1) CAPSULE( S) BY MOUTH EVERY TWELVE HOURS FOR SEVEN DAYS. 02/28 completed Not Available Not Available Not Available duloxetin e 30 mg capsule,d elayed release TAKE ONE (1) CAPSULE( S) BY MOUTH ONCE A DAY. active Not Available Not Available No t Available aprepitan t 40 mg capsule TAKE ONE (1) CAPSULE( S) BY MOUTH ONCE A DAY 3 HOURS PRIOR TO SURGERY. 02/23 completed Not Available Not Available Not Available guanfacin e ER 2 mg tablet,ex tended release 24 hr TAKE ONE (1) TABLET(S ) BY MOUTH AT BEDTIME. 02/28 completed Not Available Not Available Not Available guanfacin e ER 1 mg tablet,ex tended release 24 hr TAKE ONE (1) TABLET(S ) BY MOUTH ONCE A DAY AT BEDTIME. 11/21 completed Not Available Not Available Not Available guanfacin e ER 3 mg tablet,ex tended release 24 hr TAKE ONE (1) TABLET(S ) BY MOUTH ONCE A DAY AT BEDTIME. active Not Available Not Available No t Available ivermecti n 1 % topical cream APPLY TO entire FACE NIGHTLY 12/02 completed Not Available Not Available Not Available Rhofade 1 % topical cream apply TO face ONCE A DAY IN THE MORNING 12/02 completed Not Available Not Available Not Available Mounjaro 7.5 mg/0.5 mL subcutane ous pen injector INJECT 7.5 MG SUBCUTAN EOUSLY EVERY WEEK FOR 28 DAYS. 02/07 completed Not Available Not Available Not Available Mounjaro 5 mg/0.5 mL subcutane ous pen injector INJECT FIVE (5) MG BY SUBCUTAN EOUS ROUTE ONCE WEEKLY. 08/25 completed Not Available Not Available Not Available Mounjaro 2.5 mg/0.5 mL subcutane ous pen injector INJECT 2.5 MG SUBCUTAN EOUSLY ONCE WEEKLY DIRECTED . 02/23 completed Not Available Not Available Not Available Zepbound 5 mg/0.5 mL subcutane ous pen injector INJECT FIVE (5) MG SUBCUTAN EOUSLY EVERY WEEK. 02/28 completed Not Available Not Available Not Available Zepbound 2.5 mg/0.5 mL subcutane ous pen injector INJECT 2.5 MG SUBCUTAN EOUS ONCE WEEKLY. active Not Available Not Available No t Available Vevye 0.1 % eye drops instill 1 drop into each eye twice daily active Not Available Not Available No t Available Vitals Date Recorded Body height Body mass index (BMI) Body weight Heart rate Respiratory rate Systolic And Diastolic Provider Name and Address Organization Details Last Updated DateTime 165.1 cm 21 kg/m2 04264.6 4 g 88 /min 18 /min 113/76 mm[Hg] Zoya Funes LVN Soceaniq 10:58:38 Date Recorded Body height Body mass index (BMI) Body weight Systolic And Diastolic Provider Name and Address Organization Details Last Updated DateTime 11/21/2024 165.1 cm 21 kg/m2 82265 g 113/76 mm[Hg] Not Available [facility] 02/21/2025 11:51:02 Date Recorded Body height Body mass index (BMI) Body weight Provider Name and Address Organization Details Last Updated DateTime 2024 165.1 cm 21.8 kg/m2 85348.6 g ED Kam [address] [facility] [address], [place], [address], Soceaniq 2024 14:05:55 Date Recorded Body weight Body mass index (BMI) Body height Provider Name and Address Organization Details Last Updated DateTime 02/24/2024 91022.08 g 23.7 kg/m2 167.64 cm ED Kam [address] [facility] [address], [place], [address], So[facility] 02/24/2024 16:09:43 Date Recorded Body height Body mass index (BMI) Body weight Provider Name and Address Organization Details Last Updated DateTime 02/24/2024 167.64 cm 23.7 kg/m2 47983 g Not Available [facility] 02/21/2025 11:51:04 Date Recorded Body height Body mass index (BMI) Body weight Heart rate Oxygen saturation Oxygen saturation in Arterial blood by Pulse oximetry Respiratory rate Systolic And Diastolic Provider Name and Address Organization Details Last Updated DateTime 5 167.97 cm 19.5 kg/m2 48645.4 7 g 98 /min 97 % 97 % 18 /min 101/70 mm[Hg] Aida Fiona [facility] 5 10:44:11 Date Recorded Body height Body mass index (BMI) Body weight Heart rate Body temperature Respiratory rate Oxygen saturation Oxygen saturation in Arterial blood by Pulse oximetry Systolic And Diastolic Provider Name and Address Organization Details Last Updated DateTime 4 167.64 cm 21.8 kg/m2 28448.9 7 g 81 /min 98.3 [degF] 18 /min 98 % 98 % 118/78 mm[Hg] Zoya Funes LVN [facility] 4 15:10:38 Social History Question Answer Notes LastModified by Organizat ion Details LastModified Time Tobacco Smoking Status Never Smoker ED Kam [address] [facility] [address], [place], [address], Soceaniq 02/24/2024 15:43:36 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 Information not available 08/23/2024 How Much Alcohol Do You Drink? (beer/glasses Of Wine/shots Hard Liquor) A Few (2-3) Drinks A Week [email or web address] Information not available 02/24/2024 How Many Hours Of Sleep Do You Get? 6-7 Hours Information no t available 08/23/2024 What Was The Date Of Your Most Recent Tobacco Screening? 08/23/2024 Information not available 08/23/2024 How Many Children Do You Have? 3 [email or web address] Information not available 02/24/2024 Do You Use Your Seat Belt Or Car Seat Routinely? Yes Information not available 08/23/2024 Are You Sexually Active? Yes [email or web address] Information not available 08/23/2024 Sex: Female Functional Status Question Answer Note LastModified by Organizat ion Details LastModified Time Do you use any illicit or recreational drugs? No [email or web address] Information not available 02/24/2024 Are you able to care for yourself? Yes [email or web address] Information not available 08/23/2024 Mental Status None recorded. Family History Relationship Description Onset Age of this Age Resolved Age Notes LastModified by Organization Details LastModified Time Mother Hypertensive disorder [email or web address] Not available 08/23 15:58:10 Mother Obesity [email or web address] Not availabl e 08/23/2024 15:58:19 Mother Malignant tumor of breast Not available 08/23 15:58:32 Father Heart disease [email or web address] Not available 08/23 15:58:57 Father Harmful pattern of use of alcohol Not available 08/23 15:59:04 Medical History Condition Response Coronary Artery Disease N Colon Cancer N Kidney Stones N Lung Cancer N Depression Y Glaucoma N Anxiety Disorder Y Obesity Y Stroke N COPD/Emphysema N High Cholesterol Y Liver Disease N Kidney Disease N Prostate Cancer N ADD/ADHD Y Anemia N Diabetes N Pre-diabetes N Congestive Heart Failure (CHF) N Asthma N Reflux/GERD N Sleep Apnea N Thyroid Cancer N Heart Disease N Pulmonary Embolism N Hypertension Y Gynecological History Statement/Question Response Date of Last Mammogram 11/18/2024 Date of Last Colonoscopy Date of LMP Menses Monthly N Date of Last Pap Smear Current Control Method Hysterectom y Obstetrics History GPAL:G 3 P 3 0 0 0 Type Value Full Term 3 Total 3 Immunizations Vaccine Type Date Status Note Provider Nam e and Address Organization Details Recorded Time Tdap 07/10/2020 completed Zoya Funes LVN null, [facility] 08/23/2024 15:30:33 COVID-19, mRNA, LNP-S, PF, 30 mcg/0.3 mL dose 11/02/2020 completed ED Kam [address], [facility] [address], [place], [address], [facility] 02/22/2024 16:50:29 COVID-19, mRNA, LNP-S, PF, 30 mcg/0.3 mL dose 11/23/2020 completed ED Kam [address], [address], [place], [address], [facility] 02/22/2024 16:50:29 COVID-19, mRNA, LNP-S, PF, 30 mcg/0.3 mL dose 04/01/2022 completed ED Kam [address] [place], [place] [address], [address], [place], [address], [employer] 02/22/2024 16:50:29 COVID-19, mRNA, LNP-S, PF, 30 mcg/0.3 mL dose 07/13/2021 completed ED Kam [address] [place] [address] [address], [address], [address], [facility] 02/22/2024 16:50:29 Influenza, split virus, quadrivalent, PF 12/16/2022 completed ED Kam [address] [place] [address] [address], [address], [address], [facility] 02/22/2024 16:50:29 Influenza, split virus, quadrivalent, PF 08/25/2023 completed ED Kam [address] [place] [address] [address], [address], [address], [facility] 02/22/2024 16:50:29 Past Encounters Encounter ID Performer Location Encounter Start Date Encounter Closed Date Diagnosis/Indication Diagnosis SNOMED-CT Code Diagnosis ICD10 Code Diagnosis Note [id number] ED Kam [address] [address] 02/24/2024 15:54:43 03/21/2024 03:26:38 Increased body mass index 99229317 Z68.23 Essential hypertension 32466807 I10 Hypercholesterolemia 136 88710 E78.00 History of sleeve gastrectomy 1425022324 90935 Z90.3 Patient ad vised about weight management 458081719 Z71.3 Counseling 894466804 Z71 .9 [id number] MD Sissy Pierre [address] [place] [address] 08/23/2024 14:53:23 08/23/2024 16:53:55 Adult health examination 267626222 Z00.00 Increased body mass index 98044358 Z68.23 E66.9 E66.3 Pt had sleeve 2011 wt before 215 lost 80 #'s during covid started gaining it back 35#'s Medication : mounjaro dose: 2.5 Pharmacy: [facility] Starting weight: 185 High weight: 215 Date: may 2022 started medication Current weight: 147 Weight loss: 38#'s Starting BMI: 28.7 with elevated lipids Current BMI: 23.7 First goal weight: 145 [employer] goal weight: 135on zepbound 5 mg every 10 days Breast can cer screening declined 1229220231 5312642 Z53.20 History of depression 16 0291888 Z86.59 Stable no longer medicated has seen a psychologi st Anxiety 67746528 F41.9 Stable denies any issues History of alcohol abuse 356363589 F10.10 Stable on naltrexone History of sleeve gastrectomy 0451340029 93037 Z90.3 Pure hypercholesterolemia 057847965 E78.00 Rosuvastat in 5 mg daily will continue Rosacea 576637195 L71.9 Stable Insomnia 880001526 G47.0 0 Takes hydroxyzin e as needed [id number] [facility]anesha Cole [facility] [address] [place] [address] 11/21/2024 10:46:25 11/21/2024 12:08:50 Increased body mass index 82021634 E66.9 E66.01 E66.3 Pt had sleeve 2011 wt before 215 lost 80 #'s during covid started gaining it back 35#'s Medication : mounjaro dose: 2.5 Pharmacy: [facility] Starting weight: 185 High weight: 215 Date: may 2022 started medication Current weight: 126 Weight loss: 59#'s Starting BMI: 28.7 with elevated lipids Current BMI: 21 First goal weight: 145 [employer] goal weight: 135change to zepbound 5 mg every 14 daysChange s: increase to 14 with the 5 mg discussed if she is not gaining back the wt goal 130-135 may need to go to 2.5 mg dose Counseling 213311083 Z71 .9 Patient ad vised about weight management 770063511 Z71.3 History of sleeve gastrectomy 2076439696 34492 Z90.3 Pure hypercholesterolemia 820129966 E78.00 Rosuvastat in 5 mg daily will continue Fatigue 68687849 R53.83 will check labs [id number] MD Sissy Pierre [address] [facility] [address] [place] [address] 2024 14:04:23 2024 14:45:19 Increased body mass index 15361340 E66.9 E66.01 E66.3 Pt had sleeve 2011 wt before 215 lost 80 #'s during covid started gaining it back 35#'s [facility]acy: [facility] Starting weight: 185 High weight: 215 Date: may 2022 started medication Current weight: 131 Weight loss: 5#'s Starting BMI: 28.7 with elevated lipids Current BMI: 21.8 First goal weight: 145 [facility] goal weight: 135change to zepbound 5 mg every 14 daysChange s: increase to 14 with the 5 mg doing 5 mg q 14 days and has gained wt back to a healthy point. She had lost too much after having nerovirus Counseling 177724647 Z71 .9 Patient ad vised about weight management 201067881 Z71.3 Attention deficit hyperactivity disorder 641265302 F90.9 started on guanfacine , sees psych History of sleeve gastrectomy 1727412197 54138 Z90.3 [id number] MD Sissy Pierre [address] [address] 02/28/2025 10:37:05 02/28/2025 11:08:01 Increased body mass index 55774456 E66.3 Z68.23 Pt had sleeve 2011 wt before 215 lost 80 #'s during covid started gaining it back [facility] 185High weight: 215Date: may 2022 started medication Current weight: 131Weight loss: 5#'sStarti ng BMI: 28.7 with elevated lipidsCurr ent BMI: 21.8First goal weight: 145Long term goal weight: 135change to zepbound 5 mg every 14 daysChange s: increase to 14 with the 5 mg doing 5 mg q 14 days and has gained wt back to a healthy point.decr easing to 2.5 mg and continue stretching outencoura ged to wait a few weeks before starting the 2.5 would like her to gain some weight goal 128-130 Counseling 955429345 Z71 .9 Patient ad vised about weight management 464815892 Z71.3 History of sleeve gastrectomy 2946036175 93422 Z90.3 Attention deficit hyperactivity disorder 153399146 F90.9 started on guanfacine , sees psych History of depression 16 3231382 Z86.59 sees psych once a month was taken off her Wellbutrin and naltrexone ; was started on duloxetine Health Concerns Section Related Observation LastModified by Organization Detai ls LastModified Time None Recorded Concern Status LastModified by Organization Details LastModified Time None Recorded Advance Directives Directive None Recorded Payers Insurance Date Sequence Insurance Name Policy Number Policy Florez Covered Member ID Florez Member ID Guarantor Name 02/27/2025 1 [employer] (POS II) [id number] Brooks Mark Lundberg [id number] Serina Lundberg Notes Date Note Type Note Provider Name and Address Organization Details Recorded Time 02/24/2024 text/html 02/24/24 Patient w as seen virtually with video and audio. Patient consented to have the appointment done via telemedicine. I spent 58 minutes with the patient during the encounter. I have been seeing the pt for OM today and pt for PCP Ketty is transfering her care to [facility] Hypertension: Patient is doing well on her medications her blood pressure has been controlled she has had no chest pain shortness of breath headaches or vision changes. She does need a refill of her medication. Patient has discontinued her antidepressants and antianxiety medications she states seeing Dr. Toussaint was extremely helpful and she weaned herself off the medication. She says she feels great and denies any issues with depression or anxiety. wt management follow up has been using the Mounjaro sparingly , last shot 2.5 mg 6 weeks agoshe is out of the meds Has gained 10#'s since october, She only has had 4 injections since Oct 2023 and gained 10 #'s. Food noise is back.She has coverage for ZepbQA on Request, and would like to restart the medication for maintenance.co morbidity of DM: noPt had sleeve 2011 wt before 215 lost 80 #'s during covid started gaining it back 35#'s Medication: mounjaro dose: 2.5 Pharmacy: [facility] Starting weight: 185 High weight: 215 Date: may 2022 started medication Current weight: 147 Weight loss: 38#'s Starting BMI: 28.7 with elevated lipids Current BMI: 23.7 First goal weight: 145 [facility] goal weight: 135 Umbilical measurement: n/a Feeling over all: hungry constantly, trying to eat healthy but still gaining weight Satiety: not good off the meds GI complaints: Nausea/Vomiting: mild nausea Diarrhea/ constipation: denied Treatments: denied Meals per day: 3 Snacks: 2-3 Nutrition: Discussed the importance of Protein daily to help keep lean muscle mass and overall strength. Encouraged to eat high protien snacks, and to eat protien first at every meal. Activity : not much has been working too much , just bought a working desk for her [employer] so she can exercise while she is working How many days per week: How much time each session: Discussed the importance of physical activity including cardio, weight and resistance training. This over time will help maintain lean muscle mass which in turn helps overall metabolism. It will help toning and skin tightening as you loose weight. Do you feel that there is anything impeding your success? not having meds Current medication: Mounjaro Dosage: 2.5 Changes: zepbound looks like the pt has coverage for zepbound Today's visit included 15 minutes of counseling. This included discussing behavioral, nutritional, lifestyle, and physical activity modifications. Also spent some time talking about her daughter Aida dixon seen previously for weight management. She would like Cecilia come see me again I thought I be happy to see her we talked about some other modes for her to cope instead of food and I said she may do well to consider counseling. ED Kam [address], [address], [place], [address], [facility] 02/24/2024 18:06:54 08/23/2024 text/html 08/23/24Annual ph ysical female Current concerns: denied Last labs: jun 2024, reviewed on rosuvastatin for the pure chol LMP: hyster Mammogram: tomorrow, last one a year ago goes to [facility] control: n/a Colonoscopy: n/a Vaccinations: Tdap: 2020 Pneumonia: n/a COVID: 4 Influenza: denied Family history:reviewed Brothers and sisters: no issues Social history: reviewed Past medical history: Reviewed Past surgical history: Reviewed ED Kam [address], [address], [place], [address], [facility] 08/28/2024 08:16:11 11/21/2024 text/html 11/21/24wt managem ent follow up maintenanceco morbidity of DM: Medication: zepbound dose: 5 mg every [address]: [facility] weight: 185High weight: 215Date: may 2022 started medicationCurrent weight: 126; Pt has a week of severe GI distress, norovirus, got down to 119, and has gained back goal 130-135Weight loss: 59#'sStarting BMI: 28.7 with elevated lipidsCurrent BMI: 21First goal weight: 145Long term goal weight: 135 Umbilical measurement: 27 Feeling over all: had noro then had uti, fatigued; will get a CBC Satiety: good GI complaints: Nausea/Vomiting: with noro virus Diarrhea/ constipation: yes constipation Treatments: started metamucil Meals per day: 3 Snacks: 1-2 Nutrition: Discussed the importance of Protein daily to help keep lean muscle mass and overall strength. Encouraged to eat high protien snacks, and to eat protien first at every meal. Activity : peloton at times, How many days per week: 2 How much time each session: 45 Discussed the importance of physical activity including cardio, weight and resistance training. This over time will help maintain lean muscle mass which in turn helps overall metabolism. It will help toning and skin tightening as you loose weight. Do you feel that there is anything impeding your success? Current medication: zepbound Dosage: 5 mg every Changes: increase to 14 with the 5 mgdiscussed if she is not gaining back the wt goal 130-135 may need to go to 2.5 mg dose Today's visit included 15 minutes of counseling. This included discussing behavioral, nutritional, lifestyle, and physical activity modifications. ED Kam [address] [facility] [address], [address], [place], [address], [facility] 11/21/2024 12:00:49 2024 text/html 12/17/24e anthony everett consented to and was seen today via synchronous audio and video; the provider successfully connected with the patient and carried out the visit.I spent minutes with the patient during the encounter. and minutes reviewing previous charts including labs and procedure results11/23/24 lipids wnl except LDL 112cbc wnlwt management follow upco morbidity of DM: deniedMedication: zepbounddose: 5Pharmacy: [facility] weight: 185High weight: 215Date: may 2022 started medicationCurrent weight: 131Weight loss: 5Starting BMI: 28.7 with elevated lipidsCurrent BMI: 21.8First goal weight: 145Long term goal weight: 135zepbound 5 mg every 14 days Umbilical measurement: n/a Feeling over all: fine Satiety: better on the 5 mg doing every 14 daysGI complaints:Nausea/Vomi ting: deniedDiarrhea/ constipation: diarrhea with dairy took lactaid and did betterTreatments: lactaid Meals per day: 3Snacks: 2-3Nutrition: Discussed the importance of Protein daily to help keep lean muscle mass and overall strength. Encouraged to eat high protien snacks, and to eat protien first at every meal. Activity : pellaton with wtsHow many days per week: 2 goal 4How much time each session: 30Discussed the importance of physical activity including cardio, weight and resistance training. This over time will help maintain lean muscle mass which in turn helps overall metabolism. It will help toning and skin tightening as you loose weight. Do you feel that there is anything impeding your success? denied Current medication: zepboundDosage: 5mgChanges: 5 mg q 14 days Today's visit included 15 minutes of counseling. This included discussing behavioral, nutritional, lifestyle, and physical activity modifications. ED Kam [address] [facility] [address], [address], [place], [address], [facility] 12/22/2024 16:00:43 02/28/2025 text/html 02/28/25 wt management follow upco morbidity of DM: DeniedMedication: ZepboundPatient also takes naltrexone for history of alcohol use and has been recently started on Wellbutrin then it was discontinued and has also discontinued naltrexonewas on them for over 8 monthsalso has had stress at work and that has caused wt loss as Barbie is aware that her weight has dropped too low ultimate goal is 128-130dose: 5 mg every 14 daysPharmacy: [facility]Pt had sleeve 2011 wt before 215 lost 80 #'s during covid started gaining it back 35#'sPh[facility] weight[facility] 185High weight: 215Date: may 2022 started medicationCurrent weight: 121.5Weight loss: 64#'sStarting BMI: 28.7 with elevated lipidsCurrent BMI: 19.5First goal weight: 145Long term goal weight: 135 Umbilical measurement: 26 inches Feeling over all: good Satiety: good eating full meals now that she is off the welbutrin and naltrexoneGI complaints:Nausea/Vomi ting: deniedDiarrhea/ constipation: deniedTreatments: none Meals per day: 3Snacks: 2Nutrition: Discussed the importance of Protein daily to help keep lean muscle mass and overall strength. Encouraged to eat high protien snacks, and to eat protien first at every meal. Activity : walkingHow many days per week: 3-4How much time each session: 30-45Discussed the importance of physical activity including cardio, weight and resistance training. This over time will help maintain lean muscle mass which in turn helps overall metabolism. It will help toning and skin tightening as you loose weight. Do you feel that there is anything impeding your success? was too medicated with the naltrexone and wellbutrin Current medication: ZepboundDosage: 5 mgChanges: going to decrease to 2.5 mg every 14 daysDiscussed she can actually extend time in between dosages since it is the starting dose Today's visit included 15 minutes of counseling. This included discussing behavioral, nutritional, lifestyle, and physical activity modifications.Reviewed Seca scale encouraged weights and resistance training ED Kam [address], [address], [place], [address], [facility] 02/28/2025 12:16:17 OBGyn Episode No OBEpisode recorded.
--- NOTE | 2025-04-20 12:13 | ED_ITS ---
HPI - Seizure General Chief Complaint: Seizure Stated Complaint: seizure/fall? Time Seen by Provider: 04/20/25 12:06 Source: patient, family and EMS Mode of arrival: ambulatory Limitations: no limitations History of Present Illness HPI Narrative: 44 years old white female came to the ED by ambulance from home with seizure- like activities. Her significant other is telling me patient have some cramps in 1 of her feet today, did not feel well, suddenly blacked out, went down to the floor facing of staffing all over shaking all over eyes rolling backward, tongue out, lasted for 45 minutes. Patient was disoriented for at least 45 minutes after that event. No history of seizure. History of near syncopes in the past History of depression, anxiety, ADHD, used to be alcoholic, quit June 2024, currently drinks occasionally. Last drink was last night. Denies drug use or abuse. Patient denies any fever, chills, nausea, vomiting, chest pain, back or abdominal pain. Related Data Allergies Allergy/AdvReac Type Severity Reaction Status Date / Time Sulfa (Sulfonamide Allergy Mild Rash Verified 04/20/25 11:11 Antibiotics) Review of Systems 2 Review of Systems: All systems reviewed & are unremarkable except as noted in HPI and below Exam 2 Narrative: General appearance: Well-developed, well-nourished Skin: Normal color Head: Normocephalic, nontraumatic Eyes: Clear conjunctiva ENT: Oropharynx normal, ears normal, nose normal, half cm abrasion of the upper lip Neck: Supple, nontender Chest and respiratory: Airway patent, no respiratory distress, no accessory muscle use Heart: Regular rate/rhythm Abdomen: Soft, nontender, no organomegaly, quiet bowel sounds Vascular: Normal peripheral pulses, normal capillary refill. Musculoskeletal: Normal range of motion, nontender back Neurologic: Alert and oriented ?3, [employer]OR is normal as tested, no gross motor deficit Course Vital Signs Vital signs: Vital Signs Temperature 36.5 C 04/20/25 11:06 Pulse Rate 79 04/20/25 11:06 Respiratory Rate 16 04/20/25 11:06 Blood Pressure 113/78 04/20/25 11:06 Pulse Oximetry 99 04/20/25 11:06 Oxygen Delivery Room Air 04/20/25 11:06 Temperature 36.5 C 04/20/25 11:06 Pulse Rate 75 04/20/25 13:38 Respiratory Rate 16 04/20/25 13:36 Blood Pressure 111/75 04/20/25 13:38 Pulse Oximetry 100 04/20/25 13:36 Oxygen Delivery Room Air 04/20/25 11:12 MDM - Seizure MDM Narrative Medical decision making narrative: Patient presents with seizure like activity Vital signs are stable Physical examination showing slight scratch at the upper lip otherwise within normal limit Differential diagnosis seizure-like activities, dehydration, electrolyte imbalance, alcohol withdrawal, drug abuse Blood workup today include CBC, CMP, alcohol level Urine drug screen positive for marijuana Urinalysis no evidence of infection CT head without contrast showed no acute abnormality CT cervical spine without contrast showed no acute abnormality CT facial bones without contrast showed no acute abnormalities Chest x-ray showed no acute abnormalities Differential Diagnosis Differential diagnosis: Likely other (As above) Medical Records Attestation: I reviewed the patient's medical records. Lab Data Attestation: I reviewed the patient's lab results. 04/20/25 12:13 04/20/25 12:13 Labs: Lab Results 04/20/25 04/20/25 04/20/25 Range/Units 12:13 13:51 13:59 WBC 12.7 H (4.5-10.0) K/mm3 RBC 3.92 L (4.2-5.4) M/mm3 Hgb 11.9 L (12.0-15.0) g/dL Hct 36.0 L (37.0-47.0) % MCV 91.8 (80-100) fl MCH 30.4 (26-34) pg MCHC 33.1 (32-36) g/dl RDW 13.8 (11.5-14.5) % Plt Count 320 (150-375) k/mm3 MPV 9.7 (7.4-10.4) fl Immature Gran % (Auto) 0.3 (0-0.5) % Neut % (Auto) 75.7 H (45.5-73.1) % Lymph % (Auto) 17.5 L (18.3-44.2) % [place] % (Auto) 5.6 (2.6-8.5) % Eos % (Auto) 0.3 (0-4.4) % Baso % (Auto) 0.6 (0.2-1.2) % Lymph # (Auto) 2.23 (0.9-3.2) K/mm3 [place] # (Auto) 0.7 H (0.1-0.6) K/mm3 Eos # (Auto) 0.0 (0-0.3) K/mm3 Baso # (Auto) 0.1 (0.0-0.1) K/mm3 Abs Immat Gran (auto) 0.04 H (0.00-0.031) K/mm3 Absolute Neuts (auto) 9.6 H (1.3-6.7) K/mm3 Absolute Nucleated RBC 0.000 (0.0-0.012) K/mm3 Nucleated RBC % 0.0 (0.0-0.2) % Sodium 138 (137-145) mmol/L Potassium 3.5 (3.4-5.0) mmol/L Chloride 107 (98-107) mmol/L Carbon Dioxide 23 (22-30) mmol/L Anion Gap 8 (4-12) mmol/L BUN 12 (7-17) mg/dL Creatinine 0.74 (0.7-1.0) mg/dL Estim Creat Clear Calc 78 ml/min Estimated GFR > 60 (59 - ) Glucose 111 H (65-110) mg/dL Calcium 8.5 (8.4-10.2) mg/dL Total Bilirubin 0.6 (0.2-1.3) mg/dL AST 28 (14-36) U/L ALT 18 (6-35) U/L Alkaline Phosphatase 39 (38-126) U/L Total Protein 6.3 (6.3-8.2) g/dL Albumin 3.6 (3.5-5.1) g/dL Urine Color Yellow (Yellow) Urine Appearance Clear (Clear) Urine pH 6.0 (5.0-9.0) Ur Specific [place] 1.022 (1.001-1.035) Urine Protein Negative (Negative) mg/dL Urine Glucose (UA) Negative (Negative) mg/dL Urine Ketones Trace H (Negative) mg/dL Ur Blood (Man) Negative (Negative) Urine Nitrate Negative (Negative) Urine Bilirubin Negative (Negative) Urine Urobilinogen 1.0 (<2.0) mg/dL Leukocyte Esterase Rfl Negative (Negative) MISA/UL Urine Opiates Screen Pending Urine Methadone Screen Pending Ur Barbiturates Screen Pending Ur Phencyclidine Scrn Pending Ur Amphetamine Screen Pending U Benzodiazepines Scrn Pending Urine Cocaine Screen Pending U Cannabinoids Screen Pending Ethyl Alcohol < 10 (<10) mg/dL Imaging Data Radiologist's impression: Impressions Head CT 04/20/25 11:55 Impression: No acute intracranial hemorrhage or suspicious mass effect. Head/Cervical Spine/Facial Bones CT 04/20/25 11:56 Impression: Degenerative disease, without acute fracture of the cervical spine. No acute facial bone fracture is appreciated. Chest X-Ray 04/20/25 12:02 IMPRESSION: No focal infiltrate or effusion. ECG Data EKG #1: Attestation: I personally reviewed and interpreted this ECG as follows: ECG completion date: 04/20/25 Interpretation: Normal sinus rhythm at 64 beats per minute, normal EKG Discharge Plan Discharge Patient Disposition: Still a Patient Patient Language: Japanese Follow-up/Referrals: UNKNOWN,DOCTOR [Primary Care Provider] -
[2025-04-20 12:20] LABS: Hematocrit 36.0 % (37.0-47.0); Hemoglobin 11.9 g/dL (12.0-15.0); Immature Granulocyte Percent A 0.3 % (0-0.5); Lymphocytes Absolute Auto 2.23 K/mm3 (0.9-3.2); Mean Corpuscular HGB Conc 33.1 g/dl (32-36); Mean Corpuscular Hemoglobin 30.4 pg (26-34); Mean Corpuscular Volume 91.8 fl (80-100); Nucleated Red Blood Cells Absolute Auto 0.000 K/mm3 (0.0-0.012); Nucleated Red Blood Cells Perc 0.0 % (0.0-0.2); Platelet Count Result 320 k/mm3 (150-375); Red Blood Count 3.92 M/mm3 (4.2-5.4); White Blood Count 12.7 K/mm3 (4.5-10.0)
[2025-04-20 12:30] LABS: Alanine Aminotransferase 18 U/L (6-35); Albumin Level 3.6 g/dL (3.5-5.1); Alkaline Phosphatase 39 U/L (38-126); Anion Gap 8 mmol/L (4-12); Aspartate Amino Transferase 28 U/L (14-36); Bilirubin,Total 0.6 mg/dL (0.2-1.3); Blood Urea Nitrogen 12 mg/dL (7-17); Calcium 8.5 mg/dL (8.4-10.2); Carbon Dioxide 23 mmol/L (22-30); Chloride 107 mmol/L (98-107); Estimated CRCL calculation 78 ml/min; Estimated Glomerular Filt Rate > 60; Glucose 111 mg/dL (65-110); Potassium 3.5 mmol/L (3.4-5.0); Sodium 138 mmol/L (137-145); Total Protein 6.3 g/dL (6.3-8.2)
[2025-04-20] MEDS: levETIRAcetam 1000MG/NACL100ML 1,000 MG/100 ML BAG 400 MG IVPB (13:35)
[2025-04-20] MEDS: TETANUS,DIPHTHERIA,AC PERTUSSIS ADULT (0.5 ML) BOOSTRIX IM (13:56)
[2025-04-20 13:57] LABS: Add Urine Microscopic? NO; Appearance Urine Clear (Clear); Glucose Urine UA Negative (Negative); Leukocyte Esterase Ur Negative LEU/UL (Negative); Nitrate Urine Negative (Negative); Specific Grav Ur 1.022 (1.001-1.035)
[2025-04-20 14:33] LABS: Cannabinoid Screen Urine Positive (Negative)
--- NOTE | 2025-04-20 15:57 | P.HP_ITS ---
H&P: HPI History of Present Illness Date/Time: 04/20/25 15:57 Chief Complaint: Seizure Narrative: 44-year-old female past medical history of alcohol abuse, ADHD, anxiety presents the hospital with seizure-like activity. Patient complaining of not feeling well for about a day and had cramps in her feet. Patient had about 45 minutes of disorientation afterwards. When questioned about how long seizure was she really does not know. She states that her felt like it was several minutes however echo to been seconds. Patient states that she had 3 alcoholic beverages yesterday. She states that she probably has 1-2 alcoholic beverages 2 to 3 times a week while on naltrexone. Lab work shows leukocytosis at 12.7 CMP is within normal limits, UA is noninfective, tox screen is positive for cannabinoids, ethanol level is negative, chest x-ray shows no acute process. Head CT shows no acute process, CT spine and facial bones showed no acute process. Patient will be admitted for a neurology consult tomorrow in EEG. Review of Systems Review of Systems: 12 systems were reviewed and are negativ e except for as per HPI. [facility] Past Medical History Medical History (Updated 04/20/25 @ 22:40 by Renu Buenrostro APRN) Depression Social History Social History Smoking status: Never smoker Alcohol intake: current Drinks per week: 2 Substance use: never Substance use type: does not use Do You Feel Safe in your Home?: Yes Lack of Transportation: No Lack of Food: Never True Current Housing: I Have Housing Concerned About Future Housing: No Difficulty Paying Gas/Electric Bills: No Difficulty Paying for Meds: No Currently Unemployed: No Education: Master's Degree or Higher Difficulty w/ Childcare or Family Care: No Spiritual care concerns: No Meds Home Medications and Allergies Home Medications ?Medication ?Instructions ?Recorded ?Confirmed ?Type bupropion HCl 100 mg tablet,12 hr 100 mg PO DAILY 04/20/25 04/20/25 History sustained-release guanfacine 3 mg tablet,extended 3 mg PO QPM 04/20/25 04/20/25 History release 24 hr hydroxyzine HCl 25 mg tablet 25 mg PO HS PRN sleep 04/20/25 04/20/25 History naltrexone 50 mg tablet 50 mg PO DAILY 04/20/25 04/20/25 History Allergies Allergy/AdvReac Type Severity Reaction Status Date / Time Sulfa (Sulfonamide Allergy Mild Rash Verified 04/20/25 17:37 Antibiotics) Vital Signs Vital Signs - 24 hr 04/20/25 11:06 04/20/25 11:12 04/20/25 13:36 Temperature 97.7 F Pulse Rate 79 66 Respiratory Rate 16 16 Blood Pressure 113/78 109/71 Pulse Oximetry 99 99 100 Oxygen Delivery Room Air Room Air 04/20/25 13:37 04/20/25 13:38 04/20/25 13:38 Temperature Pulse Rate 78 70 75 Respiratory Rate Blood Pressure 105/71 114/72 111/75 Pulse Oximetry Oxygen Delivery 04/20/25 15:09 Temperature Pulse Rate 70 Respiratory Rate 17 Blood Pressure 105/70 Pulse Oximetry 99 Oxygen Delivery Exam Narrative: General: well appearing, appears stated age. HEENT: normocephalic, atraumatic. Mucous membranes moist. EOMI, PERRLA, bilateral sclera anicteric, no conjunctival injection. Neck supple without JVD, lymphadenopathy, or bruit. Respiratory: clear to ascultation bilaterally. No rales/rhonic/wheezes. Cardiovascular: Regular rate and rhythm, normal S1-S2 upon ascultation. No murmurs, rubs, or clicks. PMI is nondisplaced, capillary refill less than 3 second. Abdomen: Soft, round, no pulsatile masses, nondistended and nontender. No rebound, no guarding. No CVA tenderness, no hepatosplenomegaly. Bowel sounds present to all four quadrants. No high pitch or tinkling sounds, resonant to percussion. Extremities: No cyanosis, clubbing, or edema present. Pulses are palpable 2/2. Active ROM to all four extremities. Neuro: Alert and orientated x 4. PERRLA. Cranial nerves 2-12 intact without focal deficit. Skin: Warm, dry, and intact, without rash, erythema, or lesion. Psych: pleasant, cooperative, normal speech, normal affect, no hallucinations, no dysarthia H&P: Results Labs Labs: Short CBC 04/20/25 Range/Units 12:13 WBC 12.7 H (4.5-10.0) K/mm3 Hgb 11.9 L (12.0-15.0) g/dL Hct 36.0 L (37.0-47.0) % Plt Count 320 (150-375) k/mm3 BMP 04/20/25 12:13 Sodium 138 Potassium 3.5 Chloride 107 Carbon Dioxide 23 BUN 12 Creatinine 0.74 Glucose 111 H Calcium 8.5 Liver Function 04/20/25 Range/Units 12:13 Total Bilirubin 0.6 (0.2-1.3) mg/dL AST 28 (14-36) U/L ALT 18 (6-35) U/L Alkaline Phosphatase 39 (38-126) U/L Albumin 3.6 (3.5-5.1) g/dL Urine 04/20/25 Range/Units 13:51 Urine Color Yellow (Yellow) Urine Appearance Clear (Clear) Urine pH 6.0 (5.0-9.0) Ur Specific [place] 1.022 (1.001-1.035) Urine Protein Negative (Negative) mg/dL Urine Glucose (UA) Negative (Negative) mg/dL Assessment and Plan Assessment and plan (1) Seizure-like activity: Code(s): R56.9 - Unspecified convulsions Status: Acute Assessment and Plan: No history of seizures Neuro consulted pending recommendations Seizure precautions Mike b.i.d. Ativan p.r.n. for seizures (2) Alcohol abuse: Code(s): F10.10 - Alcohol abuse, uncomplicated Status: Acute Assessment and Plan: Patient states that she really cut back since to June of 2024 however she does still drink weekly Do not drink alcohol with Naltrexone Monitor for withdrawals (3) Depression: Code(s): F32.A - Depression, unspecified Status: Acute Assessment and Plan: Patient is on Wellbutrin which can lower your threshold will discuss with Neurology in the morning Hold Wellbutrin at this time, patient educated about side effects Quality VTE Prophylaxis VTE prophylaxis: mechanical ordered If No VTE Prophylaxis Answer both mechanical and pharmacologic: Reason no pharmacologic proph: low risk/not indicated Hospitalist MIPS Advance Care Plan I have confirmed that the patient's Advanced Care Plan is present, code status is documented, or surrogate decision maker is listed in patient medical record.: Yes Medication Reconciliation I have utilized all available resources to obtain, update and review the patients current medications (includes all prescriptions, OTC, herbals, cannabis, and nutritional supplements).: Yes
--- NOTE | 2025-04-20 17:30 | ADMGEN ---
This patient, Serina Lundberg, was admitted to Medical Room 346-01. Patient/family oriented to hospital policies and general routines including ID bracelet, bed and alarms, visiting hours, pain management, procedures, bathroom and other care routines, personal items, smoking policy, room service/diet, and visiting hours. Information on how to activate the Rapid Response Team has been discussed. Patient/Family are encouraged to report perceived risks to care and to ask questions if they do not understand what they are told or what they should do.
[2025-04-20] MEDS: ONDANSETRON INJ 4 MG/2 ML VIAL IV PUSH (19:17)
[2025-04-21] VITALS (12 sets, daily range): BP systolic 97–112; BP diastolic 54–64; PULSE 57–75; RESP 16; TEMP 36.6–37; O2SAT 99–100
[2025-04-21] MEDS: ACETAMINOPHEN 325 MG TABLET 650 MG PO ×2 (05:31→21:56)
[2025-04-21 05:47] LABS: Hematocrit 33.7 % (37.0-47.0); Hemoglobin 11.0 g/dL (12.0-15.0); Immature Granulocyte Percent A 0.2 % (0-0.5); Lymphocytes Absolute Auto 3.00 K/mm3 (0.9-3.2); Mean Corpuscular HGB Conc 32.6 g/dl (32-36); Mean Corpuscular Hemoglobin 30.5 pg (26-34); Mean Corpuscular Volume 93.4 fl (80-100); Nucleated Red Blood Cells Absolute Auto 0.000 K/mm3 (0.0-0.012); Nucleated Red Blood Cells Perc 0.0 % (0.0-0.2); Platelet Count Result 268 k/mm3 (150-375); Red Blood Count 3.61 M/mm3 (4.2-5.4); White Blood Count 8.4 K/mm3 (4.5-10.0)
[2025-04-21 06:01] LABS: Anion Gap 7 mmol/L (4-12); Blood Urea Nitrogen 9 mg/dL (7-17); Calcium 8.1 mg/dL (8.4-10.2); Carbon Dioxide 24 mmol/L (22-30); Chloride 105 mmol/L (98-107); Estimated CRCL calculation 79 ml/min; Estimated Glomerular Filt Rate > 60; Glucose 123 mg/dL (65-110); Potassium 3.1 mmol/L (3.4-5.0); Sodium 136 mmol/L (137-145)
--- NOTE | 2025-04-21 08:59 | P.PNIM_ITS ---
Progress Note: A&P Assessment and Plan (1) Seizure-like activity: Code(s): R56.9 - Unspecified convulsions Status: Acute Assessment and Plan: * No history of seizures * Neuro consulted pending recommendations * Seizure precautions * Keppra 500mg b.i.d. * Ativan p.r.n. for seizures * EEG pending * Echo pending to r/o cardiac arrhythmia (2) Alcohol abuse: Code(s): F10.10 - Alcohol abuse, uncomplicated Status: Acute Assessment and Plan: * Patient states that she really cut back since to June of 2024 however she does still drink weekly * Do not drink alcohol with Naltrexone * Monitor for withdrawals (3) Depression: Code(s): F32.A - Depression, unspecified Status: Acute Assessment and Plan: * Patient is on Wellbutrin which can lower your threshold will discuss with Neurology in the morning * Hold Wellbutrin at this time, patient educated about side effects (4) Electrolyte abnormality: Code(s): E87.8 - Other disorders of electrolyte and fluid balance, not elsewhere classified Status: Acute Assessment and Plan: * On 04/21, K 3.1 * Will replace as needed - 40meq 1 time dose * Monitor daily labs * No cardiac dysrhythmia seen on EKG Subjective Date/time seen: 04/21/25 08:59 Interval history: 44-year-old female past medical history of alcohol abuse, ADHD, anxiety presents the hospital with seizure-like activity. 04/21/2025 Patient sitting comfortably in bed at time of exam. At this time only endorses generalized body aches and fatigue. No CP, n/v, abd pain, headaches/dizziness or SOB. No further episodes of syncope or seizure like activity. Neuro consult still pending, as well as EEG. Will obtain Echo to r/o cardiac arrhythmia. Continuing Keppra 500mg BID for now. Otherwise patient is stable and has no complaints. Review of Systems Review of Systems: 12 systems were reviewed and are negativ e except for as per HPI. Exam Narrative: General: well appearing, appears stated age. HEENT: normocephalic, atraumatic. Mucous membranes moist. EOMI, PERRLA, bilateral sclera anicteric, no conjunctival injection. Neck supple without JVD, lymphadenopathy, or bruit. Respiratory: clear to ascultation bilaterally. No rales/rhonic/wheezes. Cardiovascular: Regular rate and rhythm, normal S1-S2 upon ascultation. No murmurs, rubs, or clicks. PMI is nondisplaced, capillary refill less than 3 second. Abdomen: Soft, round, no pulsatile masses, nondistended and nontender. No rebound, no guarding. No CVA tenderness, no hepatosplenomegaly. Bowel sounds present to all four quadrants. No high pitch or tinkling sounds, resonant to percussion. Extremities: No cyanosis, clubbing, or edema present. Pulses are palpable 2/2. Active ROM to all four extremities. Neuro: Alert and orientated x 4. PERRLA. Cranial nerves 2-12 intact without focal deficit. Skin: Warm, dry, and intact, without rash, erythema, or lesion. Psych: pleasant, cooperative, normal speech, normal affect, no hallucinations, no dysarthia Objective Data Vital Signs Vital Signs: Vital Signs - 24 hr 04/20/25 11:06 04/20/25 11:12 04/20/25 13:36 Temperature 97.7 F Pulse Rate 79 66 Respiratory Rate 16 16 Blood Pressure 113/78 109/71 Pulse Oximetry 99 99 100 Oxygen Delivery Room Air Room Air 04/20/25 13:37 04/20/25 13:38 04/20/25 13:38 Temperature Pulse Rate 78 70 75 Respiratory Rate Blood Pressure 105/71 114/72 111/75 Pulse Oximetry Oxygen Delivery 04/20/25 15:09 04/20/25 17:16 04/20/25 17:25 Temperature 97.7 F Pulse Rate 70 76 64 Respiratory Rate 17 16 16 Blood Pressure 105/70 100/69 96/64 L Pulse Oximetry 99 100 100 Oxygen Delivery 04/20/25 20:00 04/20/25 20:00 04/20/25 21:14 Temperature 98.1 F Pulse Rate 75 65 Respiratory Rate 16 Blood Pressure 101/61 Pulse Oximetry 100 Oxygen Delivery Room Air 04/21/25 00:00 04/21/25 04:00 04/21/25 04:56 Temperature 97.9 F Pulse Rate 61 59 L 60 Respiratory Rate 16 Blood Pressure 106/56 L Pulse Oximetry 100 Oxygen Delivery 04/21/25 05:37 04/21/25 05:38 Temperature Pulse Rate Respiratory Rate Blood Pressure 97/57 L 112/64 Pulse Oximetry Oxygen Delivery Intake/Output Intake/Output: Intake & Output 04/18/25 04/19/25 04/20/25 04/21/25 23:59 23:59 23:59 23:59 Intake Total 322 300 Balance 322 300 Meds/Results Medications: Active Medications Generic Name Dose Route Start Last Admin Trade Name Freq PRN Reason Stop Dose Admin Acetaminophen 650 mg 04/20/25 14:35 04/21/25 05:31 Acetaminophen 325 Mg Tablet PO 650 mg Q4H PRN Administration Mild Pain (1-3) or Fever Bupropion HCl 100 mg 04/21/25 09:00 Bupropion Hcl Sr (12hr) 100 Mg Tabcr PO DAILY KAMRON Hydroxyzine HCl 50 mg 04/20/25 22:13 04/20/25 23:35 Hydroxyzine Hcl 25 Mg Tablet PO 50 mg HS PRN Administration sleep Levetiracetam 500 mg 04/20/25 21:00 04/21/25 08:30 Levetiracetam 500 Mg Tablet PO 500 mg Q12HR KAMRON Administration Lorazepam 2 mg 04/20/25 22:11 Lorazepam Inj (*Crx) 2 Mg/Ml Vial IV PUSH Q6H PRN Seizure Miscellaneous Information 1 each 04/21/25 00:01 Please Send Naltrexone To Pharmacy For Verification When Available XX 05/21/25 00:00 CLARIFY KAMRON Non-Formulary Medication 50 mg 04/21/25 09:00 Naltrexone PO 05/21/25 08:59 DAILY KAMRON Ondansetron HCl 4 mg 04/20/25 18:52 04/20/25 19:17 Ondansetron Inj 4 Mg/2 Ml Vial IV PUSH 4 mg Q4H PRN Administration Nausea And Vomiting Radiology Results: ITS Impressions Head CT 04/20/25 11:55 Impression: No acute intracranial hemorrhage or suspicious mass effect. Head/Cervical Spine/Facial Bones CT 04/20/25 11:56 Impression: Degenerative disease, without acute fracture of the cervical spine. No acute facial bone fracture is appreciated. Chest X-Ray 04/20/25 12:02 IMPRESSION: No focal infiltrate or effusion. Labs Labs: Laboratory Results - last 24 hr 04/20/25 04/20/25 04/20/25 12:13 13:51 13:59 WBC 12.7 H RBC 3.92 L Hgb 11.9 L Hct 36.0 L MCV 91.8 MCH 30.4 MCHC 33.1 RDW 13.8 Plt Count 320 MPV 9.7 Immature Gran % (Auto) 0.3 Neut % (Auto) 75.7 H Lymph % (Auto) 17.5 L [place] % (Auto) 5.6 Eos % (Auto) 0.3 Baso % (Auto) 0.6 Lymph # (Auto) 2.23 [place] # (Auto) 0.7 H Eos # (Auto) 0.0 Baso # (Auto) 0.1 Abs Immat Gran (auto) 0.04 H Absolute Neuts (auto) 9.6 H Absolute Nucleated RBC 0.000 Nucleated RBC % 0.0 Sodium 138 Potassium 3.5 Chloride 107 Carbon Dioxide 23 Anion Gap 8 BUN 12 Creatinine 0.74 Estim Creat Clear Calc 78 Estimated GFR > 60 Glucose 111 H Calcium 8.5 Total Bilirubin 0.6 AST 28 ALT 18 Alkaline Phosphatase 39 Total Protein 6.3 Albumin 3.6 Urine Color Yellow Urine Appearance Clear Urine pH 6.0 Ur Specific [place] 1.022 Urine Protein Negative Urine Glucose (UA) Negative Urine Ketones Trace H Ur Blood (Man) Negative Urine Nitrate Negative Urine Bilirubin Negative Urine Urobilinogen 1.0 Leukocyte Esterase Rfl Negative Urine Opiates Screen Negative Urine Methadone Screen Negative Ur Barbiturates Screen Negative Ur Phencyclidine Scrn Negative Ur Amphetamine Screen Negative U Benzodiazepines Scrn Negative Urine Cocaine Screen Negative U Cannabinoids Screen Positive A Ethyl Alcohol < 10 04/21/25 05:23 WBC 8.4 RBC 3.61 L Hgb 11.0 L Hct 33.7 L MCV 93.4 MCH 30.5 MCHC 32.6 RDW 13.8 Plt Count 268 MPV 9.9 Immature Gran % (Auto) 0.2 Neut % (Auto) 56.5 Lymph % (Auto) 35.8 [place] % (Auto) 5.8 Eos % (Auto) 1.0 Baso % (Auto) 0.7 Lymph # (Auto) 3.00 [place] # (Auto) 0.5 Eos # (Auto) 0.1 Baso # (Auto) 0.1 Abs Immat Gran (auto) 0.02 Absolute Neuts (auto) 4.7 Absolute Nucleated RBC 0.000 Nucleated RBC % 0.0 Sodium 136 L Potassium 3.1 L Chloride 105 Carbon Dioxide 24 Anion Gap 7 BUN 9 Creatinine 0.73 Estim Creat Clear Calc 79 Estimated GFR > 60 Glucose 123 H Calcium 8.1 L Total Bilirubin AST ALT Alkaline Phosphatase Total Protein Albumin Urine Color Urine Appearance Urine pH Ur Specific [place] Urine Protein Urine Glucose (UA) Urine Ketones Ur Blood (Man) Urine Nitrate Urine Bilirubin Urine Urobilinogen Leukocyte Esterase Rfl Urine Opiates Screen Urine Methadone Screen Ur Barbiturates Screen Ur Phencyclidine Scrn Ur Amphetamine Screen U Benzodiazepines Scrn Urine Cocaine Screen U Cannabinoids Screen Ethyl Alcohol Quality VTE Prophylaxis VTE prophylaxis: mechanical ordered
[2025-04-21] MEDS: KETOROLAC 15 MG/ML VIAL (*BKC) IV PUSH ×2 (12:03→17:39)
[2025-04-21] MEDS: POTASSIUM CHLORIDE 20 MEQ PACKET (FOR LIQUID) 40 MEQ PO (15:06)
[2025-04-21] MEDS: NEOMYCIN/POLYMYXIN/BACITRACIN OINTMENT PACKET 1 PACKET (22:01)
[2025-04-22] VITALS (10 sets, daily range): BP systolic 102–131; BP diastolic 54–87; PULSE 56–81; RESP 16; TEMP 36.3–37; O2SAT 97–100
[2025-04-22] MEDS: KETOROLAC 15 MG/ML VIAL (*BKC) IV PUSH ×4 (02:38→21:52)
[2025-04-22 07:26] LABS: Hematocrit 36.8 % (37.0-47.0); Hemoglobin 12.1 g/dL (12.0-15.0); Immature Granulocyte Percent A 0.1 % (0-0.5); Lymphocytes Absolute Auto 1.90 K/mm3 (0.9-3.2); Mean Corpuscular HGB Conc 32.9 g/dl (32-36); Mean Corpuscular Hemoglobin 30.9 pg (26-34); Mean Corpuscular Volume 93.9 fl (80-100); Nucleated Red Blood Cells Absolute Auto 0.000 K/mm3 (0.0-0.012); Nucleated Red Blood Cells Perc 0.0 % (0.0-0.2); Platelet Count Result 273 k/mm3 (150-375); Red Blood Count 3.92 M/mm3 (4.2-5.4); White Blood Count 6.8 K/mm3 (4.5-10.0)
[2025-04-22 07:38] LABS: Alanine Aminotransferase 20 U/L (6-35); Albumin Level 3.3 g/dL (3.5-5.1); Alkaline Phosphatase 39 U/L (38-126); Anion Gap 3 mmol/L (4-12); Aspartate Amino Transferase 41 U/L (14-36); Bilirubin,Total 0.9 mg/dL (0.2-1.3); Blood Urea Nitrogen 13 mg/dL (7-17); Calcium 8.2 mg/dL (8.4-10.2); Carbon Dioxide 27 mmol/L (22-30); Chloride 107 mmol/L (98-107); Estimated CRCL calculation 83 ml/min; Estimated Glomerular Filt Rate > 60; Glucose 90 mg/dL (65-110); Potassium 4.4 mmol/L (3.4-5.0); Sodium 137 mmol/L (137-145); Total Protein 5.9 g/dL (6.3-8.2)
--- NOTE | 2025-04-22 08:03 | P.PNIM_ITS ---
Progress Note: A&P Assessment and Plan (1) Seizure-like activity: Code(s): R56.9 - Unspecified convulsions Status: Acute Assessment and Plan: * No history of seizures * Neuro consulted pending recommendations * Seizure precautions * Keppra 500mg b.i.d. * Ativan p.r.n. for seizures * EEG and Echo still pending * Discussed with neuro, EEG likely tomorrow (2) Alcohol abuse: Code(s): F10.10 - Alcohol abuse, uncomplicated Status: Acute Assessment and Plan: * Patient states that she really cut back since to June of 2024 however she does still drink weekly * Do not drink alcohol with Naltrexone * Monitor for withdrawals (3) Depression: Code(s): F32.A - Depression, unspecified Status: Acute Assessment and Plan: * Patient is on Wellbutrin which can lower your threshold will discuss with Neurology in the morning * Hold Wellbutrin at this time, patient educated about side effects (4) Electrolyte abnormality: Code(s): E87.8 - Other disorders of electrolyte and fluid balance, not elsewhere classified Status: Acute Assessment and Plan: * On 04/22, K 4.4 * Will replace as needed - 40meq 1 time dose * Monitor daily labs * No cardiac dysrhythmia seen on EKG Subjective Date/time seen: 04/22/25 08:03 Interval history: 44-year-old female past medical history of alcohol abuse, ADHD, anxiety presents the hospital with seizure-like activity. 04/22/2025 Patient sitting comfortably in bed at time of exam. Denies any cp, sob, n/v, headaches/dizzines, or seizure like activity. Discussed with neurology, EEG likely tomorrow. Also hopeful Echo gets completed tomorrow. Likely can d/c once these have been completed. Pt understands this but is compliant with all workup. Review of Systems Review of Systems: 12 systems were reviewed and are negativ e except for as per HPI. Exam Narrative: General: well appearing, appears stated age. HEENT: normocephalic, atraumatic. Mucous membranes moist. EOMI, PERRLA, bilateral sclera anicteric, no conjunctival injection. Neck supple without JVD, lymphadenopathy, or bruit. Respiratory: clear to ascultation bilaterally. No rales/rhonic/wheezes. Cardiovascular: Regular rate and rhythm, normal S1-S2 upon ascultation. No murmurs, rubs, or clicks. PMI is nondisplaced, capillary refill less than 3 second. Abdomen: Soft, round, no pulsatile masses, nondistended and nontender. No rebound, no guarding. No CVA tenderness, no hepatosplenomegaly. Bowel sounds present to all four quadrants. No high pitch or tinkling sounds, resonant to percussion. Extremities: No cyanosis, clubbing, or edema present. Pulses are palpable 2/2. Active ROM to all four extremities. Neuro: Alert and orientated x 4. PERRLA. Cranial nerves 2-12 intact without focal deficit. Skin: Warm, dry, and intact, without rash, erythema, or lesion. Psych: pleasant, cooperative, normal speech, normal affect, no hallucinations, no dysarthia Objective Data Vital Signs Vital Signs: Vital Signs - 24 hr 04/21/25 10:05 04/21/25 12:00 04/21/25 14:00 Temperature 98.6 F Pulse Rate 66 64 Respiratory Rate 16 Blood Pressure 100/58 L Pulse Oximetry 100 99 Oxygen Delivery Room Air 04/21/25 16:00 04/21/25 20:00 04/21/25 21:24 Temperature 98.6 F Pulse Rate 75 74 70 Respiratory Rate 16 Blood Pressure 104/54 L Pulse Oximetry 100 Oxygen Delivery 04/21/25 22:16 04/22/25 00:00 04/22/25 04:04 Temperature Pulse Rate 58 L 58 L Respiratory Rate Blood Pressure Pulse Oximetry Oxygen Delivery Room Air 04/22/25 04:48 Temperature 97.9 F Pulse Rate 56 L Respiratory Rate 16 Blood Pressure 102/54 L Pulse Oximetry 98 Oxygen Delivery Intake/Output Intake/Output: Intake & Output 04/19/25 04/20/25 04/21/25 04/22/25 23:59 23:59 23:59 23:59 Intake Total 322 3010 450 Balance 322 3010 450 Meds/Results Medications: Active Medications Generic Name Dose Route Start Last Admin Trade Name Freq PRN Reason Stop Dose Admin Acetaminophen 650 mg 04/20/25 14:35 04/21/25 21:56 Acetaminophen 325 Mg Tablet PO 650 mg Q4H PRN Administration Mild Pain (1-3) or Fever Bupropion HCl 100 mg 04/21/25 09:00 Bupropion Hcl Sr (12hr) 100 Mg Tabcr PO DAILY KAMRON Hydroxyzine HCl 50 mg 04/20/25 22:13 04/21/25 21:54 Hydroxyzine Hcl 25 Mg Tablet PO 50 mg HS PRN Administration sleep Ketorolac Tromethamine 15 mg 04/21/25 09:54 04/22/25 02:38 Ketorolac 15 Mg/Ml Vial (*Bkc) IV PUSH 15 mg Q6H PRN Administration Pain Rated 4-6 Levetiracetam 500 mg 04/20/25 21:00 04/21/25 21:54 Levetiracetam 500 Mg Tablet PO 500 mg Q12HR KAMRON Administration Lorazepam 2 mg 04/20/25 22:11 Lorazepam Inj (*Crx) 2 Mg/Ml Vial IV PUSH Q6H PRN Seizure Ondansetron HCl 4 mg 04/20/25 18:52 04/20/25 19:17 Ondansetron Inj 4 Mg/2 Ml Vial IV PUSH 4 mg Q4H PRN Administration Nausea And Vomiting Perflutren Lipid Microsphere 0 ml 04/21/25 11:40 Perflutren Lipid Microspheres 1.5 Ml Vial Diluted To 10 Ml Total Volume IV PUSH 04/24/25 11:40 ONCE PRN adequate visualization Protocol Radiology Results: ITS Impressions Head CT 04/20/25 11:55 Impression: No acute intracranial hemorrhage or suspicious mass effect. Head/Cervical Spine/Facial Bones CT 04/20/25 11:56 Impression: Degenerative disease, without acute fracture of the cervical spine. No acute facial bone fracture is appreciated. Chest X-Ray 04/20/25 12:02 IMPRESSION: No focal infiltrate or effusion. Labs Labs: Laboratory Results - last 24 hr 04/22/25 07:15 WBC 6.8 RBC 3.92 L Hgb 12.1 Hct 36.8 L MCV 93.9 MCH 30.9 MCHC 32.9 RDW 13.8 Plt Count 273 MPV 9.9 Immature Gran % (Auto) 0.1 Neut % (Auto) 60.8 Lymph % (Auto) 27.9 [place] % (Auto) 8.5 Eos % (Auto) 2.1 Baso % (Auto) 0.6 Lymph # (Auto) 1.90 [place] # (Auto) 0.6 Eos # (Auto) 0.1 Baso # (Auto) 0.0 Abs Immat Gran (auto) 0.01 Absolute Neuts (auto) 4.1 Absolute Nucleated RBC 0.000 Nucleated RBC % 0.0 Sodium 137 Potassium 4.4 Chloride 107 Carbon Dioxide 27 Anion Gap 3 L BUN 13 Creatinine 0.69 L Estim Creat Clear Calc 83 Estimated GFR > 60 Glucose 90 Calcium 8.2 L Total Bilirubin 0.9 AST 41 H ALT 20 Alkaline Phosphatase 39 Total Protein 5.9 L Albumin 3.3 L Quality VTE Prophylaxis VTE prophylaxis: mechanical ordered
[2025-04-22] MEDS: ONDANSETRON INJ 4 MG/2 ML VIAL IV PUSH (18:57)
[2025-04-23] VITALS: PULSE 59
--- NOTE | 2025-04-23 | ECHO_ITS ---
Patient Info Name: Serina Lundberg Age: 44 years : 1980 Gender: Female Ht: 66 in Wt: 134 lbs BSA: 1.68 m2 HR: 59 bpm BP: 131 / 87 mmHg Heart Rhythm: Sinus Rhythm Technical Quality: Good Exam Date: 04/23/2025 2:14 PM Patient Status: I Admit Date: 04/20/2025 Exam Type: CA echo doppler color flow Complete two-dimensional, color flow and Doppler transthoracic echocardiogram is performed. Staff Referring Physician: Yolette Ellison Experimental Worker: Kyara Morales Attending Provider: Claus Rowe MD Summary 1. Complete two-dimensional, color flow and Doppler transthoracic echocardiogram is performed. 2. Left ventricular systolic function is normal, estimated at 60-65. 3. The left ventricular diastolic function is normal. 4. There is mild tricuspid valve regurgitation. 5. No pulmonary hypertension, estimated pulmonary arterial systolic pressure is 20 mmHg. Left Ventricle Left ventricular chamber dimension is normal. Left ventricular systolic function is normal, estimated at 60-65. There is no increased left ventricular wall thickness. Left ventricular septal wall motion is normal. The left ventricular diastolic function is normal. Right Ventricle Right ventricular chamber dimension is normal. Right ventricular systolic function is normal. Left Atria Left atrial chamber dimension is normal. Right Atria Right atrial chamber dimension is normal. Aortic Valve The aortic valve is trileaflet. There is mild aortic valve sclerosis. There is no aortic valve stenosis. There is no aortic valve regurgitation. Pulmonic Valve The pulmonic valve is normal. There is no pulmonic valve stenosis. There is no pulmonic regurgitation. Mitral Valve The mitral valve has normal leaflets. There is no mitral valve stenosis. There is no mitral valve regurgitation. Tricuspid Valve The tricuspid valve leaflets are normal. There is no significant tricuspid valve stenosis. There is mild tricuspid valve regurgitation. No pulmonary hypertension, estimated pulmonary arterial systolic pressure is 20 mmHg. Pericardium/Pleural The pericardium appears normal. There is no pericardial effusion. Inferior Vena Cava Normal inferior vena cava with >50% collapse upon inspiration consistent with normal right atrial pressure, 5 mmHg. Aorta The aortic root size at the sinus of Valsalva is normal. The prox ascending aorta size is normal. Left Ventricular Outflow Tract Name Value Normal LVOT 2D LVOT Diameter 2.0 cm LVOT Doppler LVOT Peak Velocity 116 cm/s LVOT Peak Gradient 5 mmHg LVOT Mean Gradient 2 mmHg LVOT VTI 21 cm LVOT VTI/AV VTI Ratio 0.6 LVOT Stroke Volume 70 ml LVOT CO 4.2 l/min LVOT CI 2.5 l/min/m2 Pulmonic Valve Name Value Normal RVOT Doppler RVOT Peak Velocity 87 cm/s RVOT Peak Gradient 3 mmHg PV Doppler PV Peak Velocity 108 cm/s PV Peak Gradient 5 mmHg Mitral Valve Name Value Normal MV Diastolic Function MV E Peak Velocity 99 cm/s MV A Peak Velocity 53 cm/s MV E/A 1.9 MV Decel Time (PW) 193 ms MV Annular TDI MV E/e' (Septal) 7.5 MV E/e' (Lateral) 5.0 MV E/e' (Average) 6.3 Tricuspid Valve Name Value Normal TV Regurgitation Doppler TR Peak Velocity 196 cm/s TR Peak Gradient 15 mmHg Estimated PAP/RSVP RA Pressure 5 mmHg <=5 PA Systolic Pressure 20 mmHg <36 RV Systolic Pressure 20 mmHg <36 TV Annular TDI TV Lateral Angely s' Velocity 15.8 cm/s >=9.5 Aortic Valve Name Value Normal AV Doppler AV Peak Velocity 149 cm/s AV Peak Gradient 9 mmHg AV Mean Gradient 5 mmHg AV VTI 34 cm AV Area (Cont Eq VTI) 2.1 cm2 >=3.0 AV Area (Cont Eq Ramon) 2.6 cm2 AV DI (Ramon) 0.78 AV Regurgitation 2D LVOT Area 3.3 cm2 Ventricles Name Value Normal LV Dimensions 2D/MM IVS Diastolic Thickness (2D) 0.7 cm 0.6-1.0 LVID Diastole (2D) 3.9 cm 3.8-5.2 LVIW Diastolic Thickness (2D) 0.7 cm 0.6-0.9 LVID Systole (2D) 1.8 cm 2.2-3.5 LVOT Diameter 2.0 cm LV Mass (2D Cubed) 77.48 g 67.00-162.00 LV Mass Index (2D Cubed) 46 g/m2 43-95 Relative Wall Thickness (2D) 0.36 <=0.42 LV Fractional Shortening/Ejection Fraction 2D/MM LV Fractional Shortening (2D) 54 % 27-45 LV EF (2D Teichholz) 85 % LV Diastolic Volume (4C MOD) 54 ml LV EF (4C MOD) 66 % LV Diastolic Volume (2C MOD) 52 ml LV EF (2C MOD) 74 % LV Diastolic Volume (BP MOD) 55 ml 46-106 LV Diastolic Volume Index (BP MOD) 33 ml/m2 29-61 LV Systolic Volume (BP MOD) 17 ml 14-42 LV Systolic Volume Index (BP MOD) 10 ml/m2 8-24 LV EF (BP MOD) 70 % 54-74 LV Diastolic Length (4C) 7.1 cm LV Systolic Length (4C) 6.6 cm LV Stroke Volume (4C MOD) 35 ml Atria Name Value Normal LA Dimensions LA Volume (4C A-L) 26 ml LA Volume (BP A-L) 30 ml RA Dimensions RA Area (4C) 11.6 cm2 <=18.0 Report Signatures
[2025-04-23 04:00] VITALS: PULSE 56
[2025-04-23 06:00] VITALS: BP 134/68; PULSE 60; RESP 18; TEMP 36.5; O2SAT 100
[2025-04-23 08:52] VITALS: PULSE 56
[2025-04-23] MEDS: KETOROLAC 15 MG/ML VIAL (*BKC) IV PUSH (08:52)
[2025-04-23 12:00] VITALS: PULSE 61
[2025-04-23 14:00] VITALS: BP 114/74; PULSE 65; RESP 16; TEMP 36.9; O2SAT 100
[2025-04-23] MEDS: ACETAMINOPHEN 325 MG TABLET 650 MG PO (15:45)
--- NOTE | 2025-04-23 15:59 | P.DS_ITS ---
DS: Admitting Diagnosis Discharge Date 04/23/2025 Admitting Diagnosis Seizure like activity DS: Discharge Diagnosis Discharge Diagnosis (1) Seizure-like activity: Code(s): R56.9 - Unspecified convulsions Status: Acute (2) Alcohol abuse: Code(s): F10.10 - Alcohol abuse, uncomplicated Status: Acute (3) Depression: Code(s): F32.A - Depression, unspecified Status: Acute (4) Electrolyte abnormality: Code(s): E87.8 - Other disorders of electrolyte and fluid balance, not elsewhere classified Status: Acute DS: Summary Hospital Course Reason for hospitalization: Seizure like activity Hospital Course: 44-year-old female past medical history of alcohol abuse, ADHD, anxiety presents the hospital with seizure-like activity. Patient complaining of not feeling well for about a day and had cramps in her feet. Patient had about 45 minutes of disorientation afterwards. When questioned about how long seizure was she really does not know. She states that her felt like it was several minutes however echo to been seconds. Patient states that she had 3 alcoholic beverages yesterday. She states that she probably has 1-2 alcoholic beverages 2 to 3 times a week while on naltrexone. Lab work shows leukocytosis at 12.7 CMP is within normal limits, UA is noninfective, tox screen is positive for cannabinoids, ethanol level is negative, chest x-ray shows no acute process. Head CT shows no acute process, CT spine and facial bones showed no acute process. Patient will be admitted for a neurology consult tomorrow in EEG. Spoke with Neurology, recommended an EEG with outpatient follow-up with her primary care physician as this is an not emergent workup. Echocardiogram was obtained which showed EF of 60-65%, normal left ventricular diastolic function, mild TVR, and no pulmonary hypertension. Patient was placed on Keppra 500 mg b.i.d. and throughout hospitalization had no witnessed seizures and did not complain of any seizure-like activity. Patient otherwise hemodynamically stable with stable blood work and vital signs throughout hospitalization. Discussed with neurologist who agreed with outpatient workup. EEG was obtained and results are pending at this time. Patient is from out of town and wishes to be discharged. Discussed with neurology who agreed with discharging her and having her follow-up with her primary care physician. Neurological exam is unremarkable and reassuring. They will also contact the patient regarding the results of the EEG. Patient is otherwise stable for discharge home at this time. Will place her on additional Keppra 500 mg b.i.d. until she can be assessed by her PCP. Patient is amenable to this plan. Status at Discharge Functional status at discharge: independent ambulation Overall status at discharge: patient is back to baseline Time Spent with Patient Time attestation: Total time spent providing and/or coordinating discharge services: 41 Exam Narrative: General: well appearing, appears stated age. HEENT: normocephalic, atraumatic. Mucous membranes moist. EOMI, PERRLA, bilateral sclera anicteric, no conjunctival injection. Neck supple without JVD, lymphadenopathy, or bruit. Respiratory: clear to ascultation bilaterally. No rales/rhonic/wheezes. Cardiovascular: Regular rate and rhythm, normal S1-S2 upon ascultation. No murmurs, rubs, or clicks. PMI is nondisplaced, capillary refill less than 3 second. Abdomen: Soft, round, no pulsatile masses, nondistended and nontender. No rebound, no guarding. No CVA tenderness, no hepatosplenomegaly. Bowel sounds present to all four quadrants. No high pitch or tinkling sounds, resonant to percussion. Extremities: No cyanosis, clubbing, or edema present. Pulses are palpable 2/2. Active ROM to all four extremities. Neuro: Alert and orientated x 4. PERRLA. Cranial nerves 2-12 intact without focal deficit. Skin: Warm, dry, and intact, without rash, erythema, or lesion. Psych: pleasant, cooperative, normal speech, normal affect, no hallucinations, no dysarthia Discharge Plan Discharge Attending physician on discharge: Sanya Pisano Consulting providers: Lukasz Corral Discharging Clinician: Lukasz Corral Anticipated Discharge Date/Time: 04/23/25 15:52 Patient Disposition: Home Activity: as tolerated Diet: as tolerated Discharge Instructions: Discharge disposition: Home, stable Take medications as prescribed. Continue taking Keppra 500 mg twice daily for seizure prophylaxis. Discussed with your primary care physician this medication Monitor blood pressures Take caution while standing, rising, or moving Change positions slowly taking a break between each position change If you standing feel dizzy sit back down and take a break Encouraged to continue with yearly vaccinations Return to the emergency department if he developed sudden shortness of breath, chest pain, nausea, vomiting, upset stomach or intractable diarrhea Return to the emergency department if you develop fever greater than 101.5 Follow-up with the primary care physician within 1-2 weeks. They may want to refer you to a neurology regarding your hospitalization. Follow-up with Dr. Eaton of Neurology regarding the results of your EEG. You may call office tomorrow. Thank you for choosing [facility] for your healthcare needs Patient Instructions: Antibiotic Form Patient Language: Bolivian Stand Alone Forms: General Discharge Information Follow-up/Referrals: Markos Eaton MD [Physician] - UNKNOWN,DOCTOR [Primary Care Provider] - Discharge Medications: New levetiracetam [Keppra] 500 mg tablet 500 mg PO BID 7 Days Qty: 14 0RF Continued bupropion HCl 100 mg tablet sustained-release 12 hr 100 mg PO DAILY naltrexone 50 mg tablet 50 mg PO DAILY guanfacine 3 mg tablet extended release 24 hr 3 mg PO QPM hydroxyzine HCl 25 mg tablet 25 mg PO HS PRN (Reason: sleep) Date of admission: 04/20/25 14:35 Primary Care Provider: UNKNOWN,DOCTOR Admitting Provider: Claus Rowe Attending physician on admission: Claus Rowe Condition: Stable Quality VTE Prophylaxis VTE prophylaxis: mechanical ordered
--- NOTE | 2025-04-24 14:30 | WPDNEUROLOGY ---
Neurology EEG Report General Information Date of Study: 04/23/25 TEST eeg DIAGNOSIS Seizure-like activity. CONDITION OF RECORDING Drowsy and sleep EEG NUMBER [id number] CLINICAL HISTORY patient states on 04/20 she had a disoriented feeling as she walked into the kitchen. She has reported that she knew where she was but was wondering why she was walking through the door that was her last memory then things went black and she fell forward, injured her lip, turn over and her body became tight and starting to convulse. Post ictally she was disoriented after 15 to 20 minutes she was able to start answering questions. Patient also reported that she will have a few seconds in the day where things go black and she has to hang on to something. Although she reported it was possibly due to low blood pressure. EEG DESCRIPTION Whole record consists of low to medium voltage 5 to 7 hertz per 2nd theta admixed with 3 to 4 hertz per 2nd delta activity. Bilateral symmetrical sleep activity seen during sleep with symmetrical spindles. Photic stimulation not done. Hyperventilation not done. Non paroxysmal. Nonfocal. Nonlateralizing. IMPRESSION Abnormal record due to the presence of bihemispheric slow activity that is theta and delta without evidence of any paroxysmal phenomenon or lateralizing features. These abnormalities could be suggestive of organic a metabolic encephalopathy or postictal state. Clinical correlation recommended.
== END 2025-04-23 16:30 | disposition home or self-care (01) ==
LOC: ANHED 14:35 → ANH3MED 04-21 06:52 → ANH3MEDSUR 04-24 08:32
PROVIDERS: Nurse Practitioner Gerontology; Physician Assistant; Admitting Provider Internal Medicine; Emergency Provider Emergency Medicine; Visit Provider Family Medicine
DX: R56.9 Unspecified convulsions (principal); F10.10 Alcohol abuse, uncomplicated; F32.A Depression, unspecified; E87.8 Other disorders of electrolyte and fluid balance, not elsewhere classified; F90.9 Attention-deficit hyperactivity disorder, unspecified type; F41.9 Anxiety disorder, unspecified; Z23 Encounter for immunization; Z79.899 Other long term (current) drug therapy
CPT/HCPCS: 36415; 70450; 70486; 71046; 72125; 80048; 80053; 80307; 81003; 82077; 85025; 90471; 90715; 93005; 93306; 95816; 96365; 96374; 96375; 96376; 99285; A9270; G0378; J1885; J1953; J2405